=== PATIENT | female | born 1940 | race Caucasian/White ===

== ENCOUNTER → 2017-09-25 | Outpatient (CLI) | payer MEDICARE, OTHER ==
[~2017-09-25] MED LIST: ATOR40TA52 PO; ESCI20TA51 PO; GABA300C10 PO; HYDR-531 PO; ISOS30TA4 PO; LATA0.0015 EACHEYE; METO-169 PO; MULT-688 PO; PANT40TA2 PO; RIVA20TA PO
[2017-09-25 08:33] LABS: Basophils # (auto) 0 uL; Basophils % (auto) 0.3 % (0.0-2.0); Eosinophils # (auto) 0.2 uL; Eosinophils % (auto) 3.2 % (0.0-7.0); Hematocrit 36.9 % (36.0-46.0); Hemoglobin 12.1 g/dL (12.2-16.2); Lymphocytes # (auto) 1.8 uL; Lymphocytes % (auto) 31.9 % (10.0-50.0); Mean Corpuscular Hemoglobin 28.9 pg (28.0-32.0); Mean Corpuscular Hgb Conc. 32.8 g/dL (32.0-36.0); Mean Corpuscular Volume 87.9 fL (80.0-100.0); Monocytes # (auto) 0.6 uL; Monocytes % (auto) 9.9 % (0.0-12.0); Neutrophils # (auto) 3.1 uL; Neutrophils % (auto) 54.7 % (37.0-80.0); Platelet Count (auto) 278 10^3/uL (140-450); Red Cell Distribution Width 14.5 % (11.8-14.3); White Blood Cell 5.7 10^3/uL (4.4-10.8)
[2017-09-25 09:14] LABS: Albumin 3.4 g/dL (3.4-5.0); BUN/Creatinine Ratio 21.4; Bilirubin, Total 0.3 mg/dL (0.2-1.0); Calcium 9.5 mg/dL (8.5-10.1); Total Protein 7.3 g/dL (6.4-8.2)
[2017-09-25 12:47] LABS: Urine Bacteria NONE SEEN /hpf (None Seen); Urine Blood Negative /uL (Negative); Urine Specific Gravity 1.015 (1.001-1.035); Urine WBC 3 /hpf (0 - 5)
== END | disposition home or self-care (01) ==
LOC: LAB 07:08
PROVIDERS: ATTEND Internal Medicine
DX: I10 Essential (primary) hypertension (principal); E78.5 Hyperlipidemia, unspecified; E03.9 Hypothyroidism, unspecified; I48.0 Paroxysmal atrial fibrillation; Z79.899 Other long term (current) drug therapy
CPT/HCPCS: 36415; 80053; 80061; 81001; 82043; 84439; 84443; 85025; 85652

== ENCOUNTER → 2017-09-26 | Outpatient (CLI) | payer MEDICARE, OTHER ==
[~2017-09-26] VITALS: Ht 160 cm; Wt 77.1 kg
[~2017-09-26] MED LIST changes: +ADENOSINE 65 MG in GIVE UN-DILUTED 0 ML IV STA
[2017-09-26 10:56] VITALS: BP 172/83
== END | disposition home or self-care (01) ==
LOC: XY 09:20
PROVIDERS: ATTEND Internal Medicine
DX: I48.0 Paroxysmal atrial fibrillation (principal); E78.5 Hyperlipidemia, unspecified; I10 Essential (primary) hypertension; F32.9 Major depressive disorder, single episode, unspecified; G89.4 Chronic pain syndrome; G62.9 Polyneuropathy, unspecified; Z79.899 Other long term (current) drug therapy
CPT/HCPCS: 93017; J0153

== ENCOUNTER → 2017-10-04 | Outpatient (CLI) | payer MEDICARE, OTHER ==
[~2017-10-04] MED LIST changes: -ADENOSINE 65 MG in GIVE UN-DILUTED 0 ML IV STA
== END | disposition home or self-care (01) ==
LOC: XYW 09:59
PROVIDERS: ATTEND Internal Medicine
DX: I10 Essential (primary) hypertension (principal); E78.5 Hyperlipidemia, unspecified; E03.9 Hypothyroidism, unspecified; Z79.899 Other long term (current) drug therapy
CPT/HCPCS: 93306

== ENCOUNTER → 2017-10-11 | Outpatient (CLI) | payer MEDICARE, OTHER | END | disposition home or self-care (01) | LOC: XY 10:03 | PROVIDERS: ATTEND Internal Medicine | DX: N28.89 Other specified disorders of kidney and ureter (principal); I10 Essential (primary) hypertension; E03.9 Hypothyroidism, unspecified; E78.5 Hyperlipidemia, unspecified; Z79.899 Other long term (current) drug therapy; Z96.652 Presence of left artificial knee joint | CPT/HCPCS: 78306; A9503 ==

== ENCOUNTER → 2017-10-11 | Outpatient (CLI) | payer MEDICARE, OTHER ==
[2017-10-11 09:56] LABS: Calcium 9.3 mg/dL (8.5-10.1); Potassium 4.5 mmol/L (3.5-5.1)
== END | disposition home or self-care (01) ==
LOC: LAB 08:49
PROVIDERS: ATTEND Urology
DX: C64.1 Malignant neoplasm of right kidney, except renal pelvis (principal); I10 Essential (primary) hypertension; E78.5 Hyperlipidemia, unspecified; E03.9 Hypothyroidism, unspecified; Z79.899 Other long term (current) drug therapy
CPT/HCPCS: 36415; 80048

== ENCOUNTER → 2017-10-18 | Outpatient (CLI) | payer MEDICARE, OTHER ==
[2017-10-18 09:37] LABS: Basophils # (auto) 0 uL; Basophils % (auto) 0.7 % (0.0-2.0); Eosinophils # (auto) 0.2 uL; Eosinophils % (auto) 3.1 % (0.0-7.0); Hemoglobin 12.5 g/dL (12.2-16.2); Lymphocytes # (auto) 2.2 uL; Lymphocytes % (auto) 36.3 % (10.0-50.0); Mean Corpuscular Hemoglobin 28.5 pg (28.0-32.0); Mean Corpuscular Hgb Conc. 32.2 g/dL (32.0-36.0); Mean Corpuscular Volume 88.4 fL (80.0-100.0); Monocytes # (auto) 0.6 uL; Monocytes % (auto) 10.4 % (0.0-12.0); Neutrophils % (auto) 49.5 % (37.0-80.0); Platelet Count (auto) 285 10^3/uL (140-450); Red Blood Cells 4.41 10^6/uL (4.0-5.20); Red Cell Distribution Width 15.2 % (11.8-14.3); White Blood Cell 6.1 10^3/uL (4.4-10.8)
[2017-10-18 10:19] LABS: Albumin 3.5 g/dL (3.4-5.0); BUN/Creatinine Ratio 27.1; Bilirubin, Total 0.3 mg/dL (0.2-1.0); Calcium 9.1 mg/dL (8.5-10.1); Potassium 4.6 mmol/L (3.5-5.1); Total Protein 7.2 g/dL (6.4-8.2)
== END | disposition home or self-care (01) ==
LOC: LAB 09:12
PROVIDERS: ATTEND Internal Medicine
DX: I10 Essential (primary) hypertension (principal); R42 Dizziness and giddiness; E78.5 Hyperlipidemia, unspecified; E03.9 Hypothyroidism, unspecified; Z79.899 Other long term (current) drug therapy
CPT/HCPCS: 36415; 80053; 85025

== ENCOUNTER → 2017-12-11 | Outpatient (CLI) | payer MEDICARE, OTHER ==
[~2017-12-11] MED LIST changes: +APIX2.5T PO; +DILT60TA27 PO; +FURO20TA PO
[2017-12-11 16:54] LABS: BUN/Creatinine Ratio 17.9; Calcium 8.7 mg/dL (8.5-10.1); Potassium 4.7 mmol/L (3.5-5.1)
[2017-12-11 16:55] LABS: Basophils # (auto) 0 uL; Basophils % (auto) 0.5 % (0.0-2.0); Eosinophils # (auto) 0.3 uL; Eosinophils % (auto) 4.2 % (0.0-7.0); Hemoglobin 10.2 g/dL (12.2-16.2); Lymphocytes # (auto) 2.2 uL; Lymphocytes % (auto) 34.7 % (10.0-50.0); Mean Corpuscular Hgb Conc. 33.8 g/dL (32.0-36.0); Mean Corpuscular Volume 88.8 fL (80.0-100.0); Monocytes # (auto) 0.6 uL; Monocytes % (auto) 9.6 % (0.0-12.0); Neutrophils # (auto) 3.3 uL; Platelet Count (auto) 331 10^3/uL (140-450); Red Blood Cells 3.38 10^6/uL (4.0-5.20); Red Cell Distribution Width 16.4 % (11.8-14.3); White Blood Cell 6.4 10^3/uL (4.4-10.8)
== END | disposition home or self-care (01) ==
LOC: LAB 15:17
PROVIDERS: ATTEND Internal Medicine
DX: I12.9 Hypertensive chronic kidney disease with stage 1 through stage 4 chronic kidney disease, or unspecified chronic kidney disease (principal); N18.3 Chronic kidney disease, stage 3 (moderate); E78.5 Hyperlipidemia, unspecified; G47.00 Insomnia, unspecified
CPT/HCPCS: 36415; 80048; 84439; 84443; 85025

== ENCOUNTER 2017-12-30 12:27 | Inpatient (IN) | payer MEDICARE, OTHER ==
[~2017-12-30] VITALS: Ht 162.6 cm; Wt 80.0 kg
[~2017-12-30 12:27] MED LIST changes: -APIX2.5T PO; -DILT60TA27 PO; -FURO20TA PO
[2017-12-30] MEDS ORDERED: ALBUTEROL SULF 2.5 MG/0.5ML(0.5%) NEB SOLN HHN ONE (14:00)
[2017-12-30] MEDS ORDERED: IPRATROPIUM BROM 0.5 MG/2.5ML INH SOL HHN ONE (14:00)
[2017-12-30 14:09] LABS: Urine Bacteria FEW /hpf (None Seen); Urine Blood Negative /uL (Negative); Urine Specific Gravity 1.016 (1.001-1.035); Urine WBC 4 /hpf (0 - 5)
[2017-12-30 14:17] LABS: Basophils # (auto) 0 uL; Basophils % (auto) 0.6 % (0.0-2.0); Eosinophils # (auto) 0.2 uL; Hematocrit 30.9 % (36.0-46.0); Hemoglobin 10.2 g/dL (12.2-16.2); Lymphocytes # (auto) 2.7 uL; Lymphocytes % (auto) 34.8 % (10.0-50.0); Mean Corpuscular Hemoglobin 29.8 pg (28.0-32.0); Mean Corpuscular Volume 90.3 fL (80.0-100.0); Monocytes # (auto) 0.7 uL; Neutrophils # (auto) 4.2 uL; Neutrophils % (auto) 52.6 % (37.0-80.0); Nucleated Red Blood Cells % 0.1 %; Platelet Count (auto) 311 10^3/uL (140-450); Red Blood Cells 3.42 10^6/uL (4.0-5.20); Red Cell Distribution Width 16.4 % (11.8-14.3); White Blood Cell 7.9 10^3/uL (4.4-10.8)
[2017-12-30 14:44] LABS: Alanine Aminotransferase 18 U/L (13-56); Albumin 3.3 g/dL (3.4-5.0); Anion Gap 10 (5-15); Aspartate Aminotransferase 13 U/L (15-37); BUN/Creatinine Ratio 19.1; Blood Urea Nitrogen 34 mg/dL (7-18); Calcium 9.2 mg/dL (8.5-10.1); Carbon Dioxide 24 mmol/L (21-32); Chloride 107 mmol/L (98-107); GFR African American 36 mL/min; GFR Non-African American 29 mL/min; Glucose 83 mg/dL (74-106); Magnesium 2.2 mg/dL (1.6-2.6); Potassium 4.4 mmol/L (3.5-5.1); Sodium 141 mmol/L (136-145)
[2017-12-30 14:49] LABS: Alkaline Phosphatase 123 U/L (45-117); Bilirubin, Total 0.4 mg/dL (0.2-1.0)
[2017-12-30] MEDS ORDERED: cefTRIAXone 1GM/10ml IVPUSH 10 ML IV ONE (15:15)
[2017-12-30] MEDS ORDERED: SODIUM CHLORIDE 0.9% 1,000 ML IV ONE (15:45)
[2017-12-30] MEDS ORDERED: MORPHINE SULF INJ 2 MG/ML SYRINGE 1ML IV PRN ×2 (16:15)
[2017-12-30] MEDS ORDERED: TEMAZEPAM 15 MG CAP PO PRN (16:15)
[2017-12-30] MEDS ORDERED: ALBUTEROL SULF 2.5 MG/0.5ML(0.5%) NEB SOLN NEB PRN (16:15)
[2017-12-30] MEDS ORDERED: LORazepam 0.5 MG TAB PO PRN (16:15)
[2017-12-30] MEDS ORDERED: PROMETHAZINE HCL 25 MG/ML 1ML IV PRN (16:15)
[2017-12-30] MEDS ORDERED: methylPREDNISolone SOD SUCC 40 MG/ML VL IV SCH (16:15)
[2017-12-30] MEDS ORDERED: HYDROcodone-ACET 5/325MG TAB PO PRN (16:15)
[2017-12-30] MEDS ORDERED: LACTULOSE 20Gm/30ML SOLN PO PRN (16:15)
[2017-12-30] MEDS ORDERED: NITROGLYCERIN 0.4 MG SL TAB SL PRN (16:15)
[2017-12-30] MEDS: ENOXAPARIN SOD 30 MG/0.3 ML SYRINGE SC SCH (16:39)
[2017-12-30] MEDS: PANTOPRAZOLE 40 MG TAB PO SCH (16:40)
[2017-12-30 17:49] LABS: CRP High Sensitivity 0.79 mg/dL (< 0.3)
[2017-12-30] MEDS: ALBUTEROL SULF 2.5 MG/0.5ML(0.5%) NEB SOLN NEB SCH (18:43)
[2017-12-30] MEDS: IPRATROPIUM BROM 0.5 MG/2.5ML INH SOL NEB SCH (18:43)
[2017-12-30] MEDS: SODIUM CHLORIDE 0.9% 1,000 ML IV SCH (19:15)
[2017-12-30 19:32] VITALS: BP 129/64
[2017-12-30 22:00] VITALS: BP 133/68
[2017-12-31] VITALS (7 sets, daily range): BP systolic 133–153; BP diastolic 68–103
[2017-12-31] MEDS: ALBUTEROL SULF 2.5 MG/0.5ML(0.5%) NEB SOLN NEB SCH ×5 (00:16→23:50)
[2017-12-31] MEDS: IPRATROPIUM BROM 0.5 MG/2.5ML INH SOL NEB SCH ×5 (00:16→23:50)
[2017-12-31] MEDS ORDERED: DILT60TA27 PO (00:47)
[2017-12-31] MEDS ORDERED: APIX2.5T PO (00:47)
[2017-12-31] MEDS ORDERED: FURO20TA PO (00:47)
[2017-12-31] MEDS: SODIUM CHLORIDE 0.9% 1,000 ML IV SCH (02:55)
[2017-12-31 07:01] LABS: Cholesterol 168 mg/dL (< 200); HDL Cholesterol 76 mg/dL (40-59); LDL Cholesterol 90 mg/dL (< 100); Triglycerides 48 mg/dL (< 150)
[2017-12-31] MEDS: PANTOPRAZOLE 40 MG TAB PO SCH (09:48)
[2017-12-31] MEDS: ENOXAPARIN SOD 30 MG/0.3 ML SYRINGE SC SCH (09:49)
[2017-12-31] MEDS: cefTRIAXone 1GM/10ml IVPUSH 10 ML IV SCH (09:49)
[2017-12-31] MEDS ORDERED: ENSURE CLEAR Mixed Berry 8oz Carton PO SCH (18:00)
[2017-12-31] MEDS: Ensure Enlive Strawberry 8oz Bottle PO SCH (18:02)
[2017-12-31] MEDS: ACETAMINOPHEN 500 MG TAB PO PRN (18:03)
[2017-12-31] MEDS ORDERED: DILTIAZEM HCL 120MG ER CAP PO ONE (18:15)
[2017-12-31] MEDS ORDERED: GABAPENTIN 300 MG CAP PO ONE (18:45)
[2017-12-31] MEDS ORDERED: FUROSEMIDE 20 MG TAB PO ONE (18:45)
[2017-12-31] MEDS: APIXABAN 2.5 MG TAB PO SCH (22:02)
[2017-12-31] MEDS: ATORVASTATIN 20 MG TAB PO SCH (22:02)
[2018-01-01 06:00] VITALS: BP 148/76
[2018-01-01] MEDS: IPRATROPIUM BROM 0.5 MG/2.5ML INH SOL NEB SCH ×3 (07:30→19:17)
[2018-01-01] MEDS: ALBUTEROL SULF 2.5 MG/0.5ML(0.5%) NEB SOLN NEB SCH ×3 (07:30→19:17)
[2018-01-01] MEDS: Ensure Enlive Strawberry 8oz Bottle PO SCH ×3 (08:00→18:08)
[2018-01-01 08:30] VITALS: BP 154/84
[2018-01-01 09:00] VITALS: BP 154/84
[2018-01-01 09:04] LABS: BUN/Creatinine Ratio 20.8; Calcium 9.6 mg/dL (8.5-10.1)
[2018-01-01] MEDS: PANTOPRAZOLE 40 MG TAB PO SCH (10:00)
[2018-01-01] MEDS: DILTIAZEM HCL 120MG ER CAP PO SCH (10:14)
[2018-01-01] MEDS: cefTRIAXone 1GM/10ml IVPUSH 10 ML IV SCH (10:14)
[2018-01-01] MEDS: APIXABAN 2.5 MG TAB PO SCH ×2 (10:14→22:03)
[2018-01-01] MEDS: FUROSEMIDE 20 MG TAB PO SCH (10:15)
[2018-01-01] MEDS: ACETAMINOPHEN 500 MG TAB PO PRN (16:25)
[2018-01-01 17:05] VITALS: BP 135/71
[2018-01-01 20:00] VITALS: BP 141/76
[2018-01-01 21:40] VITALS: BP 141/76
[2018-01-01] MEDS: ATORVASTATIN 20 MG TAB PO SCH (22:04)
[2018-01-02] VITALS (7 sets, daily range): BP systolic 129–158; BP diastolic 67–86
[2018-01-02] MEDS: IPRATROPIUM BROM 0.5 MG/2.5ML INH SOL NEB SCH ×5 (00:27→20:12)
[2018-01-02] MEDS: ALBUTEROL SULF 2.5 MG/0.5ML(0.5%) NEB SOLN NEB SCH ×5 (00:28→20:12)
[2018-01-02] MEDS: Ensure Enlive Strawberry 8oz Bottle PO SCH ×3 (08:00→18:11)
[2018-01-02] MEDS: cefTRIAXone 1GM/10ml IVPUSH 10 ML IV SCH (09:00)
[2018-01-02 09:40] LABS: Basophils # (auto) 0 uL; Basophils % (auto) 0.5 % (0.0-2.0); Eosinophils # (auto) 0.2 uL; Eosinophils % (auto) 2.9 % (0.0-7.0); Hematocrit 35.7 % (36.0-46.0); Hemoglobin 11.7 g/dL (12.2-16.2); Lymphocytes # (auto) 1.8 uL; Lymphocytes % (auto) 24.9 % (10.0-50.0); Mean Corpuscular Hemoglobin 29.3 pg (28.0-32.0); Mean Corpuscular Hgb Conc. 32.9 g/dL (32.0-36.0); Mean Corpuscular Volume 88.9 fL (80.0-100.0); Monocytes # (auto) 0.5 uL; Monocytes % (auto) 7.7 % (0.0-12.0); Neutrophils # (auto) 4.6 uL; Platelet Count (auto) 299 10^3/uL (140-450); Red Blood Cells 4.01 10^6/uL (4.0-5.20); White Blood Cell 7.1 10^3/uL (4.4-10.8)
[2018-01-02 09:58] LABS: BUN/Creatinine Ratio 24.2; Calcium 9.7 mg/dL (8.5-10.1); Potassium 4.5 mmol/L (3.5-5.1)
[2018-01-02] MEDS: APIXABAN 2.5 MG TAB PO SCH ×2 (10:00→21:13)
[2018-01-02] MEDS: FUROSEMIDE 20 MG TAB PO SCH (10:00)
[2018-01-02] MEDS: DILTIAZEM HCL 120MG ER CAP PO SCH (10:00)
[2018-01-02] MEDS: PANTOPRAZOLE 40 MG TAB PO SCH (10:00)
[2018-01-02] MEDS: SODIUM CHLORIDE 0.9% 1,000 ML IV SCH ×2 (12:30→21:13)
[2018-01-02] MEDS: ATORVASTATIN 20 MG TAB PO SCH (21:13)
[2018-01-02] MEDS: ACETAMINOPHEN 500 MG TAB PO PRN (23:13)
[2018-01-03 04:43] VITALS: BP 147/89
[2018-01-03] MEDS: IPRATROPIUM BROM 0.5 MG/2.5ML INH SOL NEB SCH ×2 (06:34→11:31)
[2018-01-03] MEDS: ALBUTEROL SULF 2.5 MG/0.5ML(0.5%) NEB SOLN NEB SCH ×2 (06:34→11:31)
[2018-01-03] MEDS: Ensure Enlive Strawberry 8oz Bottle PO SCH ×2 (08:00→12:00)
[2018-01-03] MEDS: SODIUM CHLORIDE 0.9% 1,000 ML IV SCH (08:30)
[2018-01-03 09:00] VITALS: BP 151/99
[2018-01-03] MEDS: cefTRIAXone 1GM/10ml IVPUSH 10 ML IV SCH (09:55)
[2018-01-03] MEDS: DILTIAZEM HCL 120MG ER CAP PO SCH (09:56)
[2018-01-03] MEDS: APIXABAN 2.5 MG TAB PO SCH (09:56)
[2018-01-03] MEDS: FUROSEMIDE 20 MG TAB PO SCH (09:56)
[2018-01-03] MEDS: PANTOPRAZOLE 40 MG TAB PO SCH (09:57)
== END 2018-01-03 14:20 | disposition home or self-care (01) | DRG 190 ==
LOC: ER 12:27 → TELE 12:28 → TELE-WESTW 20:10
PROVIDERS: ADMIT Internal Medicine; ATTEND Family Medicine
DX: J44.0 Chronic obstructive pulmonary disease with (acute) lower respiratory infection (principal); J18.9 Pneumonia, unspecified organism; I13.0 Hypertensive heart and chronic kidney disease with heart failure and stage 1 through stage 4 chronic kidney disease, or unspecified chronic kidney disease; S22.32XA Fracture of one rib, left side, initial encounter for closed fracture; N39.0 Urinary tract infection, site not specified; I50.42 Chronic combined systolic (congestive) and diastolic (congestive) heart failure; J44.1 Chronic obstructive pulmonary disease with (acute) exacerbation; N18.3 Chronic kidney disease, stage 3 (moderate); J20.9 Acute bronchitis, unspecified; I25.10 Atherosclerotic heart disease of native coronary artery without angina pectoris; E78.5 Hyperlipidemia, unspecified; K80.20 Calculus of gallbladder without cholecystitis without obstruction; D64.9 Anemia, unspecified; E66.3 Overweight; E78.00 Pure hypercholesterolemia, unspecified; F41.9 Anxiety disorder, unspecified; I48.2 Chronic atrial fibrillation; W18.39XA Other fall on same level, initial encounter; B95.62 Methicillin resistant Staphylococcus aureus infection as the cause of diseases classified elsewhere; I25.2 Old myocardial infarction; Z82.49 Family history of ischemic heart disease and other diseases of the circulatory system; Z85.528 Personal history of other malignant neoplasm of kidney; Z90.5 Acquired absence of kidney; Z91.81 History of falling; Z88.5 Allergy status to narcotic agent; Z80.9 Family history of malignant neoplasm, unspecified; Z88.8 Allergy status to other drugs, medicaments and biological substances; Z91.010 Allergy to peanuts; Z91.018 Allergy to other foods; Z91.013 Allergy to seafood; Z68.30 Body mass index [BMI] 30.0-30.9, adult; Y93.89 Activity, other specified; Y92.098 Other place in other non-institutional residence as the place of occurrence of the external cause; Y99.8 Other external cause status
CPT/HCPCS: 36415; 70450; 71045; 71250; 74176; 78226; 80048; 80053; 80061; 81001; 82150; 82550; 83605; 83690; 83735; 83880; 84443; 84484; 85025; 85379; 85652; 86141; 87040; 87070; 87081; 87086; 87205; 93005; 93970; 94640; 94761; 96361; 96374; 96375; J0696

== ENCOUNTER → 2018-01-25 | Outpatient (CLI) | payer MEDICARE, OTHER ==
[~2018-01-25] MED LIST changes: +APIX2.5T PO; +DILT60TA27 PO; +FURO20TA PO; -HYDR-531 PO; -METO-169 PO; -RIVA20TA PO
== END | disposition home or self-care (01) ==
LOC: LAB 16:03
PROVIDERS: ATTEND Internal Medicine
DX: Z20.818 Contact with and (suspected) exposure to other bacterial communicable diseases (principal); I25.10 Atherosclerotic heart disease of native coronary artery without angina pectoris; J44.9 Chronic obstructive pulmonary disease, unspecified
CPT/HCPCS: 87081

== ENCOUNTER → 2018-02-27 | Outpatient (CLI) | payer MEDICARE, OTHER ==
[2018-02-27 09:04] LABS: Basophils # (auto) 0 uL; Basophils % (auto) 0.4 % (0.0-2.0); Eosinophils # (auto) 0.2 uL; Eosinophils % (auto) 4.4 % (0.0-7.0); Hematocrit 35.7 % (36.0-46.0); Hemoglobin 11.7 g/dL (12.2-16.2); Lymphocytes % (auto) 34.4 % (10.0-50.0); Mean Corpuscular Hemoglobin 29.8 pg (28.0-32.0); Mean Corpuscular Hgb Conc. 32.7 g/dL (32.0-36.0); Mean Corpuscular Volume 91.4 fL (80.0-100.0); Monocytes # (auto) 0.4 uL; Monocytes % (auto) 7.8 % (0.0-12.0); Nucleated Red Blood Cells % 0.1 %; Platelet Count (auto) 277 10^3/uL (140-450); Red Blood Cells 3.91 10^6/uL (4.0-5.20); Red Cell Distribution Width 13.7 % (11.8-14.3); White Blood Cell 5.7 10^3/uL (4.4-10.8)
[2018-02-27 09:25] LABS: Calcium 9.2 mg/dL (8.5-10.1); Potassium 4.8 mmol/L (3.5-5.1); Protein, Urine 20.6 mg/dL (0.0-11.9)
[2018-02-27 09:29] LABS: Phosphorus 4.1 mg/dL (2.5-4.90)
== END | disposition home or self-care (01) ==
LOC: LAB 08:40
PROVIDERS: ATTEND Student in an Organized Health Care Education/Training Program
DX: I12.9 Hypertensive chronic kidney disease with stage 1 through stage 4 chronic kidney disease, or unspecified chronic kidney disease (principal); N18.3 Chronic kidney disease, stage 3 (moderate); R80.9 Proteinuria, unspecified; E83.39 Other disorders of phosphorus metabolism
CPT/HCPCS: 36415; 80048; 80061; 82570; 84100; 84156; 85025

== ENCOUNTER → 2018-06-01 | Outpatient (CLI) | payer MEDICARE, OTHER ==
[2018-06-01 11:26] LABS: Basophils # (auto) 0 uL; Basophils % (auto) 0.3 % (0.0-2.0); Eosinophils # (auto) 0.2 uL; Eosinophils % (auto) 1.9 % (0.0-7.0); Hematocrit 37.6 % (36.0-46.0); Hemoglobin 12.4 g/dL (12.2-16.2); Lymphocytes # (auto) 2.8 uL; Lymphocytes % (auto) 34.6 % (10.0-50.0); Mean Corpuscular Hemoglobin 29.1 pg (28.0-32.0); Mean Corpuscular Volume 88.3 fL (80.0-100.0); Monocytes # (auto) 0.6 uL; Monocytes % (auto) 7.9 % (0.0-12.0); Neutrophils # (auto) 4.4 uL; Neutrophils % (auto) 55.3 % (37.0-80.0); Nucleated Red Blood Cells % 0.1 %; Platelet Count (auto) 290 10^3/uL (140-450); Red Blood Cells 4.26 10^6/uL (4.0-5.20); Red Cell Distribution Width 14.5 % (11.8-14.3)
[2018-06-01 11:27] LABS: Urine Blood Negative /uL (Negative); Urine Specific Gravity 1.021 (1.001-1.035)
[2018-06-01 11:45] LABS: Calcium 9.1 mg/dL (8.5-10.1); Potassium 5.3 mmol/L (3.5-5.1)
[2018-06-01 11:51] LABS: BUN/Creatinine Ratio 20.4
== END | disposition home or self-care (01) ==
LOC: LAB 11:02
PROVIDERS: ATTEND Student in an Organized Health Care Education/Training Program
DX: I12.9 Hypertensive chronic kidney disease with stage 1 through stage 4 chronic kidney disease, or unspecified chronic kidney disease (principal); N18.3 Chronic kidney disease, stage 3 (moderate); D63.1 Anemia in chronic kidney disease; R80.9 Proteinuria, unspecified
CPT/HCPCS: 36415; 80048; 80061; 81003; 85025

== ENCOUNTER → 2018-07-02 | Outpatient (CLI) | payer MEDICARE, OTHER ==
[2018-07-02 14:08] LABS: Basophils # (auto) 0 uL; Basophils % (auto) 0.4 % (0.0-2.0); Eosinophils # (auto) 0.2 uL; Hematocrit 35.4 % (36.0-46.0); Hemoglobin 11.6 g/dL (12.2-16.2); Lymphocytes # (auto) 1.9 uL; Lymphocytes % (auto) 25.6 % (10.0-50.0); Mean Corpuscular Hemoglobin 29.3 pg (28.0-32.0); Mean Corpuscular Hgb Conc. 32.7 g/dL (32.0-36.0); Mean Corpuscular Volume 89.5 fL (80.0-100.0); Monocytes # (auto) 0.7 uL; Monocytes % (auto) 9.4 % (0.0-12.0); Neutrophils # (auto) 4.7 uL; Neutrophils % (auto) 62.6 % (37.0-80.0); Platelet Count (auto) 295 10^3/uL (140-450); Red Blood Cells 3.96 10^6/uL (4.0-5.20); Red Cell Distribution Width 15.2 % (11.8-14.3); White Blood Cell 7.5 10^3/uL (4.4-10.8)
[2018-07-02 14:15] LABS: Albumin 3.5 g/dL (3.4-5.0); Calcium 8.6 mg/dL (8.5-10.1); Potassium 4.7 mmol/L (3.5-5.1)
[2018-07-02 14:19] LABS: BUN/Creatinine Ratio 17.5; Bilirubin, Total 0.4 mg/dL (0.2-1.0); Total Protein 7.1 g/dL (6.4-8.2)
[2018-07-02 14:23] LABS: Free T4 (Free Thyroxine) 1.17 ng/dL (0.89-1.76)
== END | disposition home or self-care (01) ==
LOC: LAB 13:32
PROVIDERS: ATTEND Internal Medicine
DX: E03.9 Hypothyroidism, unspecified (principal); I12.9 Hypertensive chronic kidney disease with stage 1 through stage 4 chronic kidney disease, or unspecified chronic kidney disease; N18.3 Chronic kidney disease, stage 3 (moderate); Z79.899 Other long term (current) drug therapy; I48.91 Unspecified atrial fibrillation
CPT/HCPCS: 36415; 80053; 82607; 83540; 84439; 84443; 85025

== ENCOUNTER 2018-09-07 11:20 | Emergency (ER) | payer MEDICARE, OTHER ==
[~2018-09-07] VITALS: Ht 165.1 cm; Wt 68.0 kg
[2018-09-07 13:00] LABS: Basophils # (auto) 0 uL; Basophils % (auto) 0.6 % (0.0-2.0); Eosinophils # (auto) 0.1 uL; Eosinophils % (auto) 2.3 % (0.0-7.0); Hematocrit 34.8 % (36.0-46.0); Hemoglobin 11.6 g/dL (12.2-16.2); Lymphocytes # (auto) 1.6 uL; Lymphocytes % (auto) 28.2 % (10.0-50.0); Mean Corpuscular Hemoglobin 29.7 pg (28.0-32.0); Mean Corpuscular Hgb Conc. 33.2 g/dL (32.0-36.0); Mean Corpuscular Volume 89.2 fL (80.0-100.0); Monocytes # (auto) 0.5 uL; Monocytes % (auto) 8.9 % (0.0-12.0); Neutrophils # (auto) 3.4 uL; Platelet Count (auto) 254 10^3/uL (140-450); White Blood Cell 5.7 10^3/uL (4.4-10.8)
[2018-09-07 13:14] LABS: INR 0.98 (0.9-1.15); Partial Thromboplastin Time 29.5 sec (23.78-33.04); Prothrombin Time 10.5 sec (9.27-12.13)
[2018-09-07 13:17] LABS: Albumin 3.4 g/dL (3.4-5.0); Anion Gap 9 (5-15); Blood Urea Nitrogen 43 mg/dL (7-18); Calcium 8.8 mg/dL (8.5-10.1); Carbon Dioxide 23 mmol/L (21-32); Chloride 107 mmol/L (98-107); Glucose 115 mg/dL (74-106); Magnesium 2.5 mg/dL (1.6-2.6); Potassium 4.6 mmol/L (3.5-5.1); Sodium 139 mmol/L (136-145)
[2018-09-07 13:23] LABS: Alanine Aminotransferase 22 U/L (13-56); Alkaline Phosphatase 147 U/L (45-117); Aspartate Aminotransferase 14 U/L (15-37); BUN/Creatinine Ratio 24.6; Bilirubin, Total 0.4 mg/dL (0.2-1.0); GFR African American 36 mL/min; GFR Non-African American 30 mL/min; Total Protein 6.5 g/dL (6.4-8.2)
[2018-09-07 13:49] LABS: Urine Bacteria NONE SEEN /hpf (None Seen); Urine Blood Negative /uL (Negative); Urine Specific Gravity 1.013 (1.001-1.035); Urine WBC 16 /hpf (0 - 5)
[2018-09-07 13:54] VITALS: BP 105/51
== END 2018-09-07 16:19 | disposition home or self-care (01) ==
LOC: EDBD 11:20 → ER 11:20
DX: E86.0 Dehydration (principal); T78.40XA Allergy, unspecified, initial encounter; J44.9 Chronic obstructive pulmonary disease, unspecified; E78.5 Hyperlipidemia, unspecified; I10 Essential (primary) hypertension; I25.2 Old myocardial infarction; I48.91 Unspecified atrial fibrillation; Z86.73 Personal history of transient ischemic attack (TIA), and cerebral infarction without residual deficits; Z79.899 Other long term (current) drug therapy; Z88.2 Allergy status to sulfonamides; Z88.6 Allergy status to analgesic agent; Z91.010 Allergy to peanuts; X58.XXXA Exposure to other specified factors, initial encounter
CPT/HCPCS: 36415; 70450; 71045; 80053; 81001; 83735; 83880; 84484; 85025; 85610; 85730; 93005

== ENCOUNTER → 2018-12-31 | Outpatient (CLI) | payer MEDICARE, OTHER ==
[~2018-12-31] MED LIST changes: +FURO1TAB33 PO; -FURO20TA PO
[2018-12-31 10:50] LABS: Basophils # (auto) 0 uL; Basophils % (auto) 0.5 % (0.0-2.0); Eosinophils # (auto) 0.2 uL; Eosinophils % (auto) 3.3 % (0.0-7.0); Hematocrit 35.8 % (36.0-46.0); Hemoglobin 11.6 g/dL (12.2-16.2); Lymphocytes % (auto) 31.4 % (10.0-50.0); Mean Corpuscular Hemoglobin 29.4 pg (28.0-32.0); Mean Corpuscular Hgb Conc. 32.4 g/dL (32.0-36.0); Mean Corpuscular Volume 90.5 fL (80.0-100.0); Monocytes # (auto) 0.5 uL; Monocytes % (auto) 7.8 % (0.0-12.0); Neutrophils # (auto) 3.7 uL; Nucleated Red Blood Cells % 0.1 %; Platelet Count (auto) 290 10^3/uL (140-450); Red Blood Cells 3.95 10^6/uL (4.0-5.20); Red Cell Distribution Width 14.1 % (11.8-14.3); White Blood Cell 6.4 10^3/uL (4.4-10.8)
[2018-12-31 11:02] LABS: Urine Blood Negative /uL (Negative); Urine Specific Gravity 1.018 (1.001-1.035)
[2018-12-31 11:07] LABS: Potassium 4.8 mmol/L (3.5-5.1)
== END | disposition home or self-care (01) ==
LOC: LAB 10:03
PROVIDERS: ATTEND Student in an Organized Health Care Education/Training Program
DX: N39.0 Urinary tract infection, site not specified (principal); I12.9 Hypertensive chronic kidney disease with stage 1 through stage 4 chronic kidney disease, or unspecified chronic kidney disease; N18.3 Chronic kidney disease, stage 3 (moderate); D63.1 Anemia in chronic kidney disease
CPT/HCPCS: 36415; 80048; 81003; 85025

== ENCOUNTER → 2019-07-04 | Outpatient (CLI) | payer MEDICARE, OTHER ==
[2019-07-04 16:05] LABS: Basophils # (auto) 0 uL; Basophils % (auto) 0.4 % (0.0-2.0); Eosinophils # (auto) 0.3 uL; Eosinophils % (auto) 3.6 % (0.0-7.0); Hematocrit 35.3 % (36.0-46.0); Hemoglobin 11.4 g/dL (12.2-16.2); Lymphocytes # (auto) 2.9 uL; Lymphocytes % (auto) 37.3 % (10.0-50.0); Mean Corpuscular Hemoglobin 28.6 pg (28.0-32.0); Mean Corpuscular Hgb Conc. 32.1 g/dL (32.0-36.0); Mean Corpuscular Volume 89.1 fL (80.0-100.0); Monocytes # (auto) 0.7 uL; Monocytes % (auto) 8.7 % (0.0-12.0); Neutrophils # (auto) 3.8 uL; Nucleated Red Blood Cells % 0.1 %; Platelet Count (auto) 275 10^3/uL (140-450); Red Blood Cells 3.97 10^6/uL (4.0-5.20); Red Cell Distribution Width 15.4 % (11.8-14.3); White Blood Cell 7.7 10^3/uL (4.4-10.8)
[2019-07-04 16:19] LABS: Urine Bacteria NONE SEEN /hpf (None Seen); Urine Blood Negative /uL (Negative); Urine Specific Gravity 1.016 (1.001-1.035); Urine WBC 4 /hpf (0 - 5)
[2019-07-04 16:22] LABS: BUN/Creatinine Ratio 22.5; Calcium 9.2 mg/dL (8.5-10.1); Potassium 4.4 mmol/L (3.5-5.1)
[2019-07-04 16:35] LABS: Protein, Urine 29.8 mg/dL (0.0-11.9)
== END | disposition home or self-care (01) ==
LOC: LAB 15:22
PROVIDERS: ATTEND Student in an Organized Health Care Education/Training Program
DX: R80.9 Proteinuria, unspecified (principal)
CPT/HCPCS: 36415; 80048; 81001; 82570; 84156; 85025

== ENCOUNTER → 2019-11-07 | Outpatient (CLI) | payer MEDICARE, OTHER ==
[~2019-11-07] MED LIST changes: -LATA0.0015 EACHEYE; +LATA0.0019 EACHEYE
[2019-11-07 10:58] LABS: Basophils # (auto) 0 10 ^3/uL (0-0.2); Basophils % (auto) 0.4 % (0.0-2.0); Eosinophils # (auto) 0.1 10 ^3/uL (0-0.8); Eosinophils % (auto) 2.3 % (0.0-7.0); Lymphocytes # (auto) 1.7 10 ^3/uL (0.4-5.4); Lymphocytes % (auto) 29.6 % (10.0-50.0); Mean Corpuscular Hemoglobin 29.3 pg (28.0-32.0); Mean Corpuscular Hgb Conc. 32.5 g/dL (32.0-36.0); Mean Corpuscular Volume 90.1 fL (80.0-100.0); Monocytes # (auto) 0.4 10 ^3/uL (0-1.3); Monocytes % (auto) 7.9 % (0.0-12.0); Neutrophils # (auto) 3.4 10 ^3/uL (1.6-8.6); Neutrophils % (auto) 59.8 % (37.0-80.0); Platelet Count (auto) 270 10^3/uL (140-450); Red Blood Cells 4.44 10^6/uL (4.0-5.20); Red Cell Distribution Width 14.4 % (11.8-14.3); White Blood Cell 5.6 10^3/uL (4.4-10.8)
[2019-11-07 11:21] LABS: Potassium 4.7 mmol/L (3.5-5.1)
[2019-11-07 11:32] LABS: Albumin 3.8 g/dL (3.4-5.0); BUN/Creatinine Ratio 25.2; Bilirubin, Total 0.4 mg/dL (0.2-1.0); Calcium 10.1 mg/dL (8.5-10.1); Total Protein 7.2 g/dL (6.4-8.2); Uric Acid 5.8 mg/dL (2.6-6.0)
== END | disposition home or self-care (01) ==
LOC: LAB 10:12
PROVIDERS: ATTEND Internal Medicine
DX: I12.9 Hypertensive chronic kidney disease with stage 1 through stage 4 chronic kidney disease, or unspecified chronic kidney disease (principal); N18.3 Chronic kidney disease, stage 3 (moderate)
CPT/HCPCS: 36415; 80053; 80061; 84439; 84443; 84550; 85025

== ENCOUNTER → 2020-01-08 | Outpatient (CLI) | payer MEDICARE, OTHER ==
[2020-01-08 13:44] LABS: Basophils # (auto) 0 10 ^3/uL (0-0.2); Basophils % (auto) 0.3 % (0.0-2.0); Eosinophils # (auto) 0.1 10 ^3/uL (0-0.8); Eosinophils % (auto) 2.2 % (0.0-7.0); Hematocrit 36.8 % (36.0-46.0); Hemoglobin 11.9 g/dL (12.2-16.2); Lymphocytes # (auto) 2.1 10 ^3/uL (0.4-5.4); Mean Corpuscular Hemoglobin 29.3 pg (28.0-32.0); Mean Corpuscular Hgb Conc. 32.5 g/dL (32.0-36.0); Mean Corpuscular Volume 90.3 fL (80.0-100.0); Monocytes # (auto) 0.7 10 ^3/uL (0-1.3); Monocytes % (auto) 9.8 % (0.0-12.0); Neutrophils # (auto) 3.7 10 ^3/uL (1.6-8.6); Neutrophils % (auto) 55.7 % (37.0-80.0); Nucleated Red Blood Cells % 0.1 %; Platelet Count (auto) 270 10^3/uL (140-450); Red Blood Cells 4.08 10^6/uL (4.0-5.20); White Blood Cell 6.7 10^3/uL (4.4-10.8)
[2020-01-08 13:51] LABS: Urine Bacteria NONE SEEN /hpf (None Seen); Urine Blood Negative /uL (Negative); Urine Mucus FEW (None Seen); Urine Specific Gravity 1.018 (1.001-1.035); Urine WBC 3 /hpf (0 - 5)
[2020-01-08 14:09] LABS: Albumin 3.4 g/dL (3.4-5.0); Calcium 9.4 mg/dL (8.5-10.1); Potassium 5.2 mmol/L (3.5-5.1)
[2020-01-08 14:10] LABS: Protein, Urine 29.9 mg/dL (0.0-11.9)
[2020-01-08 14:12] LABS: BUN/Creatinine Ratio 20.4; Bilirubin, Total 0.4 mg/dL (0.2-1.0); Total Protein 6.4 g/dL (6.4-8.2)
== END | disposition home or self-care (01) ==
LOC: LAB 13:17
PROVIDERS: ATTEND Student in an Organized Health Care Education/Training Program
DX: N18.3 Chronic kidney disease, stage 3 (moderate) (principal); D63.1 Anemia in chronic kidney disease; E21.3 Hyperparathyroidism, unspecified; R80.9 Proteinuria, unspecified
CPT/HCPCS: 36415; 80053; 81001; 82570; 83970; 84156; 85025

== ENCOUNTER → 2020-03-19 | Day surgery (SDC) | payer MEDICARE, OTHER ==
[2020-03-16 17:14] LABS: Basophils # (auto) 0 10 ^3/uL (0-0.2); Basophils % (auto) 0.5 % (0.0-2.0); Eosinophils # (auto) 0.1 10 ^3/uL (0-0.8); Eosinophils % (auto) 1.8 % (0.0-7.0); Hematocrit 37.9 % (36.0-46.0); Hemoglobin 12.5 g/dL (12.2-16.2); Lymphocytes # (auto) 2.5 10 ^3/uL (0.4-5.4); Lymphocytes % (auto) 33.9 % (10.0-50.0); Mean Corpuscular Hemoglobin 30.1 pg (28.0-32.0); Mean Corpuscular Hgb Conc. 32.9 g/dL (32.0-36.0); Mean Corpuscular Volume 91.6 fL (80.0-100.0); Monocytes # (auto) 0.5 10 ^3/uL (0-1.3); Monocytes % (auto) 7.2 % (0.0-12.0); Neutrophils # (auto) 4.1 10 ^3/uL (1.6-8.6); Neutrophils % (auto) 56.6 % (37.0-80.0); Platelet Count (auto) 279 10^3/uL (140-450); Red Blood Cells 4.14 10^6/uL (4.0-5.20); Red Cell Distribution Width 14.2 % (11.8-14.3); White Blood Cell 7.2 10^3/uL (4.4-10.8)
[2020-03-16 17:26] LABS: INR 0.97 (0.9-1.15); Partial Thromboplastin Time 26.6 sec (23.0-31.2)
[2020-03-16 18:00] LABS: BUN/Creatinine Ratio 21.5; Calcium 9.8 mg/dL (8.5-10.1); Potassium 4.4 mmol/L (3.5-5.1)
[~2020-03-19] VITALS: Ht 162.6 cm; Wt 69.9 kg
[~2020-03-19] MED LIST changes: +ALBUTEROL SULF 2.5 MG/0.5ML(0.5%) NEB SOLN NEB ONE; +ALBUTEROL SULF 2.5 MG/0.5ML(0.5%) NEB SOLN ONE; +ALPR0.5T7 PO; +EPINEPHrine HCL 1 MG/1 ML AMP ONE; -FURO1TAB33 PO; +GLYCOPYRROLATE 0.2 MG/ML 1ML VIAL ONE; +HYDROmorphone HCL 2 MG/ML VL IV PRN; -LATA0.0019 EACHEYE; +LIDOCAINE 1% (LOCAL ANESTH.) PF 5ml SDV ONE; +LIDOCAINE 2%HCL (LOCAL ANESTH.) INJ 20ML MDV ONE; +LIDOCAINE HCL 2% TOP JELLY 5ML TOP ONE; +METOCLOPRAMIDE HCL 5MG/ml INJ 2ml VIAL ONE; +MIDAZOLAM HCL 1MG/1ML-2 ML VIAL ONE; -MULT-688 PO; +NALOXONE HCL 0.4 MG/ML VIAL IV PRN; +ONDANSETRON HCL 4 MG/2 ML VIAL IV PRN; -PANT40TA2 PO; +PROPOFOL 10 MG/ML 20 ML IV ONE; +SODIUM CHLORIDE LOCK 0 ML ONE
--- NOTE | 2020-03-19 15:48 | NUR ---
Respiratory note: PLACED PT ON 2L N/C.
[2020-03-19 18:30] VITALS: BP 101/68
== END | disposition home or self-care (01) ==
LOC: EDBD 12:54 → GI 12:54
PROVIDERS: ATTEND Internal Medicine Pulmonary Disease
DX: J98.8 Other specified respiratory disorders (principal); I48.91 Unspecified atrial fibrillation; J44.9 Chronic obstructive pulmonary disease, unspecified; E66.9 Obesity, unspecified; Z86.73 Personal history of transient ischemic attack (TIA), and cerebral infarction without residual deficits; N18.9 Chronic kidney disease, unspecified; G89.29 Other chronic pain; Z88.1 Allergy status to other antibiotic agents; F41.9 Anxiety disorder, unspecified; Z88.0 Allergy status to penicillin; Z91.013 Allergy to seafood; Z88.5 Allergy status to narcotic agent; Z91.018 Allergy to other foods; Z90.89 Acquired absence of other organs; Z85.528 Personal history of other malignant neoplasm of kidney; Z20.828 Contact with and (suspected) exposure to other viral communicable diseases; Z98.890 Other specified postprocedural states; E66.01 Morbid (severe) obesity due to excess calories; Z88.8 Allergy status to other drugs, medicaments and biological substances; Z90.710 Acquired absence of both cervix and uterus; Z90.5 Acquired absence of kidney; F32.9 Major depressive disorder, single episode, unspecified
CPT/HCPCS: 31622; 36415; 80048; 85025; 85610; 85730; 87070; 87205; 88104; 88305; 94640; J2250; J2704; J2765; U0003; J0171

== ENCOUNTER → 2020-06-05 | Outpatient (CLI) | payer MEDICARE, OTHER ==
[~2020-06-05] MED LIST changes: -ALBUTEROL SULF 2.5 MG/0.5ML(0.5%) NEB SOLN NEB ONE; -ALBUTEROL SULF 2.5 MG/0.5ML(0.5%) NEB SOLN ONE; +DILT60TA PO; -DILT60TA27 PO; -EPINEPHrine HCL 1 MG/1 ML AMP ONE; +ESCI-34 PO; -ESCI20TA51 PO; -GLYCOPYRROLATE 0.2 MG/ML 1ML VIAL ONE; -HYDROmorphone HCL 2 MG/ML VL IV PRN; -LIDOCAINE 1% (LOCAL ANESTH.) PF 5ml SDV ONE; -LIDOCAINE 2%HCL (LOCAL ANESTH.) INJ 20ML MDV ONE; -LIDOCAINE HCL 2% TOP JELLY 5ML TOP ONE; -METOCLOPRAMIDE HCL 5MG/ml INJ 2ml VIAL ONE; -MIDAZOLAM HCL 1MG/1ML-2 ML VIAL ONE; -NALOXONE HCL 0.4 MG/ML VIAL IV PRN; -ONDANSETRON HCL 4 MG/2 ML VIAL IV PRN; -PROPOFOL 10 MG/ML 20 ML IV ONE; -SODIUM CHLORIDE LOCK 0 ML ONE
[2020-06-05 12:23] LABS: Basophils # (auto) 0 10 ^3/uL (0-0.2); Basophils % (auto) 0.5 % (0.0-2.0); Eosinophils # (auto) 0.1 10 ^3/uL (0-0.8); Eosinophils % (auto) 2.2 % (0.0-7.0); Hematocrit 37.1 % (36.0-46.0); Hemoglobin 12.5 g/dL (12.2-16.2); Mean Corpuscular Hemoglobin 30.6 pg (28.0-32.0); Mean Corpuscular Hgb Conc. 33.7 g/dL (32.0-36.0); Mean Corpuscular Volume 90.9 fL (80.0-100.0); Monocytes # (auto) 0.5 10 ^3/uL (0-1.3); Monocytes % (auto) 8.4 % (0.0-12.0); Neutrophils % (auto) 53.9 % (37.0-80.0); Platelet Count (auto) 247 10^3/uL (140-450); Red Blood Cells 4.09 10^6/uL (4.0-5.20); Red Cell Distribution Width 14.1 % (11.8-14.3); White Blood Cell 5.7 10^3/uL (4.4-10.8)
[2020-06-05 12:35] LABS: Urine Bacteria NONE SEEN /hpf (None Seen); Urine Blood Negative /uL (Negative); Urine Specific Gravity 1.013 (1.001-1.035); Urine WBC 3 /hpf (0 - 5)
[2020-06-05 12:58] LABS: Albumin 3.5 g/dL (3.4-5.0); BUN/Creatinine Ratio 21.7; Calcium 9.2 mg/dL (8.5-10.1); Phosphorus 3.2 mg/dL (2.5-4.90); Potassium 4.5 mmol/L (3.5-5.1)
== END | disposition home or self-care (01) ==
LOC: LAB 12:05
PROVIDERS: ATTEND Student in an Organized Health Care Education/Training Program
DX: E11.22 Type 2 diabetes mellitus with diabetic chronic kidney disease (principal); N18.31 Chronic kidney disease, stage 3a; D63.1 Anemia in chronic kidney disease; E21.3 Hyperparathyroidism, unspecified; R82.90 Unspecified abnormal findings in urine; M10.9 Gout, unspecified; R80.9 Proteinuria, unspecified; E56.9 Vitamin deficiency, unspecified
CPT/HCPCS: 36415; 80069; 81001; 82306; 82570; 83036; 83970; 84156; 84550; 85025

== ENCOUNTER 2020-09-18 17:14 | Emergency (ER) | payer MEDICARE, OTHER ==
[~2020-09-18] VITALS: Ht 162.6 cm; Wt 68.9 kg
[~2020-09-18 17:14] MED LIST changes: +ISOS1TAB28 PO; -ISOS30TA4 PO
[2020-09-18 18:26] LABS: Basophils # (auto) 0 10 ^3/uL (0-0.2); Basophils % (auto) 0.5 % (0.0-2.0); Eosinophils # (auto) 0.2 10 ^3/uL (0-0.8); Eosinophils % (auto) 2.3 % (0.0-7.0); Hematocrit 35.6 % (36.0-46.0); Hemoglobin 12.1 g/dL (12.2-16.2); Lymphocytes # (auto) 2.5 10 ^3/uL (0.4-5.4); Mean Corpuscular Hemoglobin 30.8 pg (28.0-32.0); Mean Corpuscular Volume 90.7 fL (80.0-100.0); Monocytes # (auto) 0.6 10 ^3/uL (0-1.3); Monocytes % (auto) 7.1 % (0.0-12.0); Neutrophils # (auto) 4.7 10 ^3/uL (1.6-8.6); Neutrophils % (auto) 59.1 % (37.0-80.0); Nucleated Red Blood Cells % 0.1 %; Red Blood Cells 3.92 10^6/uL (4.0-5.20); Red Cell Distribution Width 14.3 % (11.8-14.3); White Blood Cell 7.9 10^3/uL (4.4-10.8)
[2020-09-18 18:33] LABS: Albumin 3.5 g/dL (3.4-5.0); Calcium 9.5 mg/dL (8.5-10.1); Potassium 4.4 mmol/L (3.5-5.1)
[2020-09-18 18:42] LABS: BUN/Creatinine Ratio 27.3; Bilirubin, Total 0.3 mg/dL (0.2-1.0); Total Protein 6.8 g/dL (6.4-8.2)
[2020-09-18 21:41] LABS: Urine Bacteria FEW /hpf (None Seen); Urine Blood Negative /uL (Negative); Urine Hyaline Cast FEW /lpf (0 - 2); Urine Specific Gravity 1.018 (1.001-1.035); Urine WBC 4 /hpf (0 - 5)
[2020-09-18] MEDS ORDERED: APIXABAN 2.5 MG TAB ONE (22:14)
[2020-09-18] MEDS ORDERED: PATIENTS OWN MEDICATION (ELIQUIS 2.5 MG) PO ONE (22:15)
[2020-09-18 23:04] VITALS: BP 137/96
== END 2020-09-18 23:06 | disposition home or self-care (01) ==
LOC: ER 17:14
DX: H53.9 Unspecified visual disturbance (principal); I10 Essential (primary) hypertension; E78.5 Hyperlipidemia, unspecified; J44.9 Chronic obstructive pulmonary disease, unspecified; I25.10 Atherosclerotic heart disease of native coronary artery without angina pectoris; I48.91 Unspecified atrial fibrillation
CPT/HCPCS: 36415; 70450; 80053; 81001; 83735; 84443; 85025; 93005; 93886

== ENCOUNTER → 2020-11-20 | Outpatient (CLI) | payer MEDICARE, OTHER ==
[2020-11-20 14:30] LABS: Urine Bacteria NONE SEEN /hpf (None Seen); Urine Blood Negative /uL (Negative); Urine Hyaline Cast FEW /lpf (0 - 2); Urine Mucus FEW (None Seen); Urine Specific Gravity 1.018 (1.001-1.035); Urine WBC 23 /hpf (0 - 5)
[2020-11-20 14:31] LABS: Basophils # (auto) 0 10 ^3/uL (0-0.2); Basophils % (auto) 0.3 % (0.0-2.0); Eosinophils # (auto) 0.1 10 ^3/uL (0-0.8); Eosinophils % (auto) 2.7 % (0.0-7.0); Hematocrit 32.9 % (36.0-46.0); Hemoglobin 10.9 g/dL (12.2-16.2); Lymphocytes # (auto) 1.5 10 ^3/uL (0.4-5.4); Lymphocytes % (auto) 28.4 % (10.0-50.0); Mean Corpuscular Hemoglobin 29.9 pg (28.0-32.0); Mean Corpuscular Volume 90.6 fL (80.0-100.0); Monocytes # (auto) 0.6 10 ^3/uL (0-1.3); Monocytes % (auto) 10.2 % (0.0-12.0); Neutrophils # (auto) 3.2 10 ^3/uL (1.6-8.6); Neutrophils % (auto) 58.4 % (37.0-80.0); Nucleated Red Blood Cells % 0.1 %; Red Blood Cells 3.63 10^6/uL (4.0-5.20); Red Cell Distribution Width 14.4 % (11.8-14.3); White Blood Cell 5.4 10^3/uL (4.4-10.8)
[2020-11-20 14:38] LABS: Protein, Urine 30.3 mg/dL (0.0-11.9)
[2020-11-20 14:49] LABS: Micro Albumin 52.4 mg/L (0-30.0)
[2020-11-20 15:00] LABS: Albumin 3.2 g/dL (3.4-5.0); Calcium 9.4 mg/dL (8.5-10.1); Potassium 4.5 mmol/L (3.5-5.1)
[2020-11-20 15:04] LABS: Bilirubin, Total 0.2 mg/dL (0.2-1.0); Phosphorus 3.7 mg/dL (2.5-4.90); Total Protein 6.1 g/dL (6.4-8.2); Uric Acid 5.7 mg/dL (2.6-6.0)
== END | disposition home or self-care (01) ==
LOC: LAB 13:58
PROVIDERS: ATTEND Student in an Organized Health Care Education/Training Program
DX: I12.9 Hypertensive chronic kidney disease with stage 1 through stage 4 chronic kidney disease, or unspecified chronic kidney disease (principal); N18.31 Chronic kidney disease, stage 3a; D63.1 Anemia in chronic kidney disease; E21.3 Hyperparathyroidism, unspecified; M10.9 Gout, unspecified; R80.9 Proteinuria, unspecified; I48.91 Unspecified atrial fibrillation
CPT/HCPCS: 36415; 80053; 80069; 81001; 82043; 82306; 82570; 83970; 84156; 84443; 84550; 85025

== ENCOUNTER 2021-04-14 15:00 | Emergency (ER) | payer MEDICARE, OTHER ==
[~2021-04-14] VITALS: Ht 162.6 cm; Wt 68.9 kg
[2021-04-14 15:08] VITALS: BP 158/78
== END 2021-04-14 16:51 | disposition left against medical advice (07) ==
LOC: EDBD → ER 15:00
DX: R51.9 Headache, unspecified (principal); I25.10 Atherosclerotic heart disease of native coronary artery without angina pectoris; I25.2 Old myocardial infarction; I48.91 Unspecified atrial fibrillation; I10 Essential (primary) hypertension; J44.9 Chronic obstructive pulmonary disease, unspecified; E78.5 Hyperlipidemia, unspecified; Z79.899 Other long term (current) drug therapy; Z88.0 Allergy status to penicillin; Z88.2 Allergy status to sulfonamides; Z88.8 Allergy status to other drugs, medicaments and biological substances; Z91.018 Allergy to other foods; Z91.013 Allergy to seafood; Z91.010 Allergy to peanuts; Z86.73 Personal history of transient ischemic attack (TIA), and cerebral infarction without residual deficits
CPT/HCPCS: 70450; 74176

== ENCOUNTER → 2021-06-16 | Outpatient (CLI) | payer MEDICARE, OTHER ==
[2021-06-16 11:02] LABS: Basophils # (auto) 0 10 ^3/uL (0-0.2); Basophils % (auto) 0.5 % (0.0-2.0); Eosinophils # (auto) 0.2 10 ^3/uL (0-0.8); Eosinophils % (auto) 2.8 % (0.0-7.0); Hematocrit 35.9 % (36.0-46.0); Hemoglobin 11.9 g/dL (12.2-16.2); Lymphocytes % (auto) 35.5 % (10.0-50.0); Mean Corpuscular Hemoglobin 30.1 pg (28.0-32.0); Mean Corpuscular Hgb Conc. 33.3 g/dL (32.0-36.0); Mean Corpuscular Volume 90.4 fL (80.0-100.0); Monocytes # (auto) 0.5 10 ^3/uL (0-1.3); Monocytes % (auto) 8.4 % (0.0-12.0); Neutrophils # (auto) 2.9 10 ^3/uL (1.6-8.6); Neutrophils % (auto) 52.8 % (37.0-80.0); Nucleated Red Blood Cells % 0.1 %; Red Blood Cells 3.97 10^6/uL (4.0-5.20); Red Cell Distribution Width 13.8 % (11.8-14.3); White Blood Cell 5.5 10^3/uL (4.4-10.8)
[2021-06-16 11:19] LABS: Urine Bacteria NONE SEEN /hpf (None Seen); Urine Blood Negative /uL (Negative); Urine Specific Gravity 1.014 (1.001-1.035); Urine WBC 3 /hpf (0 - 5)
[2021-06-16 11:47] LABS: Albumin 3.6 g/dL (3.4-5.0); Potassium 4.9 mmol/L (3.5-5.1)
[2021-06-16 11:51] LABS: BUN/Creatinine Ratio 22.1; Bilirubin, Total 0.5 mg/dL (0.2-1.0); Total Protein 6.7 g/dL (6.4-8.2)
== END | disposition home or self-care (01) ==
LOC: LAB 10:16
PROVIDERS: ATTEND Internal Medicine
DX: I10 Essential (primary) hypertension (principal)
CPT/HCPCS: 36415; 80053; 81001; 85025

== ENCOUNTER → 2021-06-28 | Outpatient (CLI) | payer MEDICARE, OTHER ==
[2021-06-28 11:42] LABS: Urine Bacteria NONE SEEN /hpf (None Seen); Urine Blood Negative /uL (Negative); Urine Specific Gravity 1.019 (1.001-1.035); Urine WBC 2 /hpf (0 - 5)
[2021-06-28 11:48] LABS: Protein, Urine 35.2 mg/dL (0.0-11.9)
[2021-06-28 13:29] LABS: Basophils # (auto) 0 10 ^3/uL (0-0.2); Basophils % (auto) 0.4 % (0.0-2.0); Eosinophils # (auto) 0.1 10 ^3/uL (0-0.8); Eosinophils % (auto) 1.9 % (0.0-7.0); Hematocrit 36.4 % (36.0-46.0); Hemoglobin 11.9 g/dL (12.2-16.2); Lymphocytes # (auto) 1.8 10 ^3/uL (0.4-5.4); Lymphocytes % (auto) 29.6 % (10.0-50.0); Mean Corpuscular Hemoglobin 29.5 pg (28.0-32.0); Mean Corpuscular Hgb Conc. 32.6 g/dL (32.0-36.0); Mean Corpuscular Volume 90.5 fL (80.0-100.0); Monocytes # (auto) 0.4 10 ^3/uL (0-1.3); Monocytes % (auto) 6.7 % (0.0-12.0); Neutrophils # (auto) 3.6 10 ^3/uL (1.6-8.6); Neutrophils % (auto) 61.4 % (37.0-80.0); Nucleated Red Blood Cells % 0.1 %; Red Blood Cells 4.02 10^6/uL (4.0-5.20); Red Cell Distribution Width 13.9 % (11.8-14.3); White Blood Cell 5.9 10^3/uL (4.4-10.8)
[2021-06-28 14:40] LABS: Albumin 3.7 g/dL (3.4-5.0); Bilirubin, Total 0.4 mg/dL (0.2-1.0); Calcium 9.9 mg/dL (8.5-10.1); Potassium 4.8 mmol/L (3.5-5.1); Total Protein 6.7 g/dL (6.4-8.2)
== END | disposition home or self-care (01) ==
LOC: LAB 10:28
PROVIDERS: ATTEND Student in an Organized Health Care Education/Training Program
DX: N18.31 Chronic kidney disease, stage 3a (principal); D63.1 Anemia in chronic kidney disease; M10.9 Gout, unspecified; R80.9 Proteinuria, unspecified; E56.9 Vitamin deficiency, unspecified; N39.0 Urinary tract infection, site not specified; R82.90 Unspecified abnormal findings in urine; R76.0 Raised antibody titer; I77.6 Arteritis, unspecified
CPT/HCPCS: 36415; 80053; 81001; 82306; 82570; 84156; 85025; 86038; 86160; 86256; 87086

== ENCOUNTER → 2021-10-12 | Outpatient (CLI) | payer MEDICARE, OTHER ==
[2021-10-12 11:27] LABS: Hemoglobin 11.6 g/dL (12.2-16.2); Mean Corpuscular Hemoglobin 29.7 pg (28.0-32.0); White Blood Cell 6.3 10^3/uL (4.4-10.8)
[2021-10-12 11:36] LABS: Urine Bacteria NONE SEEN /hpf (None Seen); Urine Blood Negative /uL (Negative); Urine Specific Gravity 1.018 (1.001-1.035); Urine WBC 2 /hpf (0 - 5)
[2021-10-12 11:44] LABS: Hematocrit 35.6 % (36.0-46.0); Mean Corpuscular Hgb Conc. 32.7 g/dL (32.0-36.0); Mean Corpuscular Volume 90.8 fL (80.0-100.0); Red Blood Cells 3.92 10^6/uL (4.0-5.20); Red Cell Distribution Width 13.8 % (11.8-14.3)
[2021-10-12 11:46] LABS: Band Neutrophils % (manual) 0; Basophils % (manual) 0 (0.0-2.0); Blast Cells 0; Metamyelocytes % 0; Myelocytes % 0; Promyelocytes % 0; Reactive Lymphocytes 0
[2021-10-12 12:11] LABS: Potassium 5.5 mmol/L (3.5-5.1)
[2021-10-12 12:13] LABS: Free T4 (Free Thyroxine) 1.31 ng/dL (0.89-1.76)
[2021-10-12 12:28] LABS: Albumin 3.7 g/dL (3.4-5.0); BUN/Creatinine Ratio 21.2; Bilirubin, Total 0.4 mg/dL (0.2-1.0); Calcium 10.3 mg/dL (8.5-10.1); Total Protein 6.8 g/dL (6.4-8.2); Uric Acid 6.3 mg/dL (2.6-6.0)
[2021-10-12 12:32] LABS: Thyroid Stimulating Hormone 1.48 uIU/mL (0.358-3.74)
[2021-10-12 13:22] LABS: Eosinophils % (manual) 2 (0-7); Lymphocytes % (manual) 29 (10.0-50.0); Monocytes % (manual) 10 (0-12)
== END | disposition home or self-care (01) ==
LOC: LAB 10:45
PROVIDERS: ATTEND Internal Medicine
DX: I12.9 Hypertensive chronic kidney disease with stage 1 through stage 4 chronic kidney disease, or unspecified chronic kidney disease (principal); N18.30 Chronic kidney disease, stage 3 unspecified; D64.9 Anemia, unspecified
CPT/HCPCS: 36415; 80053; 80061; 81001; 82306; 82607; 83615; 83970; 84439; 84443; 84550; 85007; 85025; 85027; 85045; 85652

== ENCOUNTER → 2021-12-23 | Outpatient (CLI) | payer MEDICARE, OTHER ==
[2021-12-23 14:38] LABS: Basophils # (auto) 0 10 ^3/uL (0-0.2); Basophils % (auto) 0.5 % (0.0-2.0); Eosinophils # (auto) 0.1 10 ^3/uL (0-0.8); Eosinophils % (auto) 1.9 % (0.0-7.0); Hemoglobin 9.9 g/dL (12.2-16.2); Lymphocytes # (auto) 2.1 10 ^3/uL (0.4-5.4); Lymphocytes % (auto) 30.3 % (10.0-50.0); Mean Corpuscular Volume 87.3 fL (80.0-100.0); Monocytes # (auto) 0.7 10 ^3/uL (0-1.3); Monocytes % (auto) 9.8 % (0.0-12.0); Neutrophils # (auto) 3.9 10 ^3/uL (1.6-8.6); Neutrophils % (auto) 57.5 % (37.0-80.0); Nucleated Red Blood Cells % 0.1 %; Red Blood Cells 3.55 10^6/uL (4.0-5.20); Red Cell Distribution Width 13.9 % (11.8-14.3); White Blood Cell 6.8 10^3/uL (4.4-10.8)
[2021-12-23 14:47] LABS: Urine Bacteria NONE SEEN /hpf (None Seen); Urine Blood Negative /uL (Negative); Urine Specific Gravity 1.017 (1.001-1.035); Urine WBC 13 /hpf (0 - 5)
[2021-12-23 14:52] LABS: Protein, Urine 22.3 mg/dL (0.0-11.9)
[2021-12-23 15:10] LABS: Calcium 9.3 mg/dL (8.5-10.1); Potassium 4.7 mmol/L (3.5-5.1)
== END | disposition home or self-care (01) ==
LOC: LAB 14:23
PROVIDERS: ATTEND Student in an Organized Health Care Education/Training Program
DX: D63.1 Anemia in chronic kidney disease (principal); N18.30 Chronic kidney disease, stage 3 unspecified; R80.9 Proteinuria, unspecified
CPT/HCPCS: 36415; 80048; 81001; 82570; 84156; 85025

== ENCOUNTER → 2022-01-27 | Outpatient (CLI) | payer MEDICARE, OTHER ==
[2022-01-27 12:29] LABS: Basophils # (auto) 0 10 ^3/uL (0-0.2); Basophils % (auto) 0.5 % (0.0-2.0); Eosinophils # (auto) 0.2 10 ^3/uL (0-0.8); Eosinophils % (auto) 2.6 % (0.0-7.0); Hemoglobin 10.1 g/dL (12.2-16.2); Lymphocytes % (auto) 33.6 % (10.0-50.0); Mean Corpuscular Hemoglobin 28.1 pg (28.0-32.0); Mean Corpuscular Hgb Conc. 32.6 g/dL (32.0-36.0); Mean Corpuscular Volume 86.3 fL (80.0-100.0); Monocytes # (auto) 0.6 10 ^3/uL (0-1.3); Monocytes % (auto) 9.3 % (0.0-12.0); Neutrophils # (auto) 3.3 10 ^3/uL (1.6-8.6); Red Blood Cells 3.59 10^6/uL (4.0-5.20); Red Cell Distribution Width 14.2 % (11.8-14.3); White Blood Cell 6.1 10^3/uL (4.4-10.8)
[2022-01-27 13:02] LABS: Albumin 3.4 g/dL (3.4-5.0); Calcium 9.6 mg/dL (8.5-10.1); Magnesium 2.3 mg/dL (1.6-2.6); Potassium 4.9 mmol/L (3.5-5.1); Protein, Urine 26.5 mg/dL (0.0-11.9)
[2022-01-27 13:05] LABS: BUN/Creatinine Ratio 23.1; Bilirubin, Total 0.4 mg/dL (0.2-1.0); Total Protein 6.4 g/dL (6.4-8.2)
== END | disposition home or self-care (01) ==
LOC: LAB 12:10
PROVIDERS: ATTEND Student in an Organized Health Care Education/Training Program
DX: N18.31 Chronic kidney disease, stage 3a (principal); N39.0 Urinary tract infection, site not specified; D63.1 Anemia in chronic kidney disease; R80.9 Proteinuria, unspecified; R82.90 Unspecified abnormal findings in urine
CPT/HCPCS: 36415; 80053; 82570; 83735; 84156; 85025; 87086

== ENCOUNTER → 2022-05-03 | Outpatient (CLI) | payer MEDICARE, OTHER ==
[2022-05-03 15:47] LABS: Basophils # (auto) 0 10 ^3/uL (0-0.2); Eosinophils # (auto) 0.2 10 ^3/uL (0-0.8); Monocytes # (auto) 0.5 10 ^3/uL (0-1.3)
[2022-05-03 15:49] LABS: Basophils % (auto) 0.3 % (0.0-2.0); Eosinophils % (auto) 2.7 % (0.0-7.0); Hematocrit 28.9 % (36.0-46.0); Hemoglobin 9.6 g/dL (12.2-16.2); Lymphocytes % (auto) 30.4 % (10.0-50.0); Mean Corpuscular Hemoglobin 27.2 pg (28.0-32.0); Mean Corpuscular Hgb Conc. 33.2 g/dL (32.0-36.0); Mean Corpuscular Volume 81.7 fL (80.0-100.0); Monocytes % (auto) 8.1 % (0.0-12.0); Neutrophils # (auto) 3.9 10 ^3/uL (1.6-8.6); Neutrophils % (auto) 58.5 % (37.0-80.0); Red Blood Cells 3.53 10^6/uL (4.0-5.20); Red Cell Distribution Width 15.5 % (11.8-14.3); White Blood Cell 6.6 10^3/uL (4.4-10.8)
[2022-05-03 15:59] LABS: Urine Bacteria NONE SEEN /hpf (None Seen); Urine Blood Negative /uL (Negative); Urine Specific Gravity 1.018 (1.001-1.035); Urine WBC 46 /hpf (0 - 5)
[2022-05-03 16:26] LABS: Albumin 3.4 g/dL (3.4-5.0); BUN/Creatinine Ratio 24.7; Calcium 9.8 mg/dL (8.5-10.1); Potassium 5.2 mmol/L (3.5-5.1)
[2022-05-03 16:28] LABS: Bilirubin, Total 0.3 mg/dL (0.2-1.0); Phosphorus 2.9 mg/dL (2.5-4.90); Total Protein 6.6 g/dL (6.4-8.2)
== END | disposition home or self-care (01) ==
LOC: LAB 15:32
PROVIDERS: ATTEND Student in an Organized Health Care Education/Training Program
DX: N18.31 Chronic kidney disease, stage 3a (principal); D63.1 Anemia in chronic kidney disease; R80.9 Proteinuria, unspecified; E83.39 Other disorders of phosphorus metabolism; R82.90 Unspecified abnormal findings in urine
CPT/HCPCS: 36415; 80053; 81001; 83970; 84100; 85025

== ENCOUNTER → 2022-12-22 | Outpatient (CLI) | payer MEDICARE, OTHER ==
[~2022-12-22] MED LIST changes: -ESCI-34 PO; +ESCI1TAB37 PO; +GABA-1250 PO; -GABA300C10 PO
[2022-12-22 10:35] LABS: Urine Bacteria NONE SEEN /hpf (None Seen); Urine Blood Negative /uL (Negative); Urine Clarity Clear (Clear); Urine Color Yellow (Yellow); Urine Protein, UAD TRACE (Negative); Urine Specific Gravity 1.016 (1.001-1.035); Urine Urobilinogen Normal (Negative); Urine WBC 1 /hpf (0 - 5)
[2022-12-22 10:37] LABS: Basophils # (auto) 0 10 ^3/uL (0-0.2); Eosinophils # (auto) 0.2 10 ^3/uL (0-0.8); Lymphocytes # (auto) 1.7 10 ^3/uL (0.4-5.4); Monocytes # (auto) 0.5 10 ^3/uL (0-1.3); Neutrophils # (auto) 3.2 10 ^3/uL (1.6-8.6); White Blood Cell 5.6 10^3/uL (4.4-10.8)
[2022-12-22 10:42] LABS: Basophils % (auto) 0.5 % (0.0-2.0); Eosinophils % (auto) 3.4 % (0.0-7.0); Hematocrit 22.6 % (36.0-46.0); Hemoglobin 7.1 g/dL (12.2-16.2); Lymphocytes % (auto) 29.4 % (10.0-50.0); Mean Corpuscular Hemoglobin 23.9 pg (28.0-32.0); Mean Corpuscular Hgb Conc. 31.6 g/dL (32.0-36.0); Mean Corpuscular Volume 75.7 fL (80.0-100.0); Monocytes % (auto) 9.4 % (0.0-12.0); Neutrophils % (auto) 57.3 % (37.0-80.0); Red Blood Cells 2.99 10^6/uL (4.0-5.20); Red Cell Distribution Width 17.2 % (11.8-14.3)
[2022-12-22 11:01] LABS: Albumin 3.4 g/dL (3.4-5.0); BUN/Creatinine Ratio 20.5 (10.0-20.0); Bilirubin, Total 0.3 mg/dL (0.2-1.0); Calcium 9.7 mg/dL (8.5-10.1); Magnesium 2.3 mg/dL (1.6-2.6); Phosphorus 3.2 mg/dL (2.5-4.90); Total Protein 6.5 g/dL (6.4-8.2)
[2022-12-22 11:26] LABS: Hypochromia Slight; Platelet Estimate Adequate
[2022-12-22 11:30] LABS: Erythrocyte Sedimentation Rate 23 mm/hr (0-20)
== END | disposition home or self-care (01) ==
LOC: LAB 09:53
PROVIDERS: ATTEND Internal Medicine
DX: I10 Essential (primary) hypertension (principal); I48.0 Paroxysmal atrial fibrillation
CPT/HCPCS: 36415; 80053; 80061; 81001; 82043; 83735; 84100; 84439; 84443; 84550; 85025; 85652

== ENCOUNTER 2022-12-26 10:40 | Inpatient (IN) | payer MEDICARE, OTHER ==
[2022-12-26] VITALS (9 sets, daily range): BP systolic 126–175; BP diastolic 54–68; PULSE 72–94; RESP 15–24; TEMP 97.7–99; O2SAT 94–95
[~2022-12-26] VITALS: Ht 162.6 cm; Wt 68.3 kg
[2022-12-26 11:34] LABS: Basophils # (auto) 0 10 ^3/uL (0-0.2); Eosinophils # (auto) 0.1 10 ^3/uL (0-0.8); Mean Corpuscular Volume 75.8 fL (80.0-100.0); White Blood Cell 5.1 10^3/uL (4.4-10.8)
[2022-12-26 11:35] LABS: Eosinophils % (auto) 2.6 % (0.0-7.0); Hematocrit 22.2 % (36.0-46.0); Lymphocytes # (auto) 1.4 10 ^3/uL (0.4-5.4); Lymphocytes % (auto) 27.6 % (10.0-50.0); Mean Corpuscular Hemoglobin 23.3 pg (28.0-32.0); Mean Corpuscular Hgb Conc. 30.8 g/dL (32.0-36.0); Monocytes # (auto) 0.5 10 ^3/uL (0-1.3); Monocytes % (auto) 8.9 % (0.0-12.0); Neutrophils % (auto) 59.9 % (37.0-80.0); Red Blood Cells 2.93 10^6/uL (4.0-5.20)
[2022-12-26 11:40] LABS: Hemoglobin 6.8 g/dL (12.2-16.2)
[2022-12-26 11:56] LABS: INR 0.98 (0.9-1.15); Partial Thromboplastin Time 25.9 SEC (24.5-34.5); Prothrombin Time 10.3 sec (9.3-11.8)
[2022-12-26] MEDS ORDERED: MORPHINE SULFATE INJ 2 MG/ml SYRG IV PRN ×2 (12:00)
[2022-12-26] MEDS ORDERED: NITROGLYCERIN 0.4 MG SL TAB SL PRN (12:00)
[2022-12-26 12:28] LABS: Potassium 5.3 mmol/L (3.5-5.1)
[2022-12-26 12:36] LABS: Albumin 3.6 g/dL (3.4-5.0); BUN/Creatinine Ratio 20.1 (10.0-20.0); Bilirubin, Total 0.3 mg/dL (0.2-1.0); Calcium 9.8 mg/dL (8.5-10.1); Total Protein 6.1 g/dL (6.4-8.2)
[2022-12-26 13:26] LABS: % Iron Saturation 4.8 % (15-50)
[2022-12-26 13:35] LABS: Folate (Folic Acid) > 24.00 ng/mL (5.38-24)
[2022-12-26 13:36] LABS: Thyroid Stimulating Hormone 1.7 uIU/mL (0.358-3.74)
[2022-12-26] MEDS: SODIUM CHLORIDE 0.9% 1,000 ML IV SCH (15:13)
[2022-12-26 15:54] LABS: Platelet Estimate Adequate
[2022-12-26 15:55] LABS: Hypochromia Slight
[2022-12-26 16:41] LABS: Urine Bacteria NONE SEEN /hpf (None Seen); Urine Blood Negative /uL (Negative); Urine Clarity Clear (Clear); Urine Color Yellow (Yellow); Urine Protein, UAD Negative (Negative); Urine Specific Gravity 1.014 (1.001-1.035); Urine Urobilinogen Normal (Negative); Urine WBC 1 /hpf (0 - 5); Urine pH 6.5 (5.0-8.0)
[2022-12-26] MEDS ORDERED: D5W/SOD CHLO 0.9% 1,000 ML IV SCH (19:30)
[2022-12-26] MEDS: PANTOPRAZOLE 40 MG/10 ML VIAL INJ IV SCH (22:42)
[2022-12-26] MEDS: GABAPENTIN 300 MG CAP PO SCH (22:42)
[2022-12-26] MEDS: ATORVASTATIN 20 MG TAB PO SCH (22:42)
[2022-12-27] VITALS: BP 135/113; PULSE 83; RESP 18; TEMP 98.8
[2022-12-27 00:20] VITALS: BP 141/58; PULSE 83; RESP 18; TEMP 98.8
[2022-12-27] MEDS: SODIUM CHLORIDE 0.9% 1,000 ML IV SCH (04:08)
[2022-12-27 05:50] LABS: Basophils # (auto) 0 10 ^3/uL (0-0.2); Eosinophils # (auto) 0.2 10 ^3/uL (0-0.8); Eosinophils % (auto) 3.3 % (0.0-7.0); Hemoglobin 9.6 g/dL (12.2-16.2); Lymphocytes # (auto) 1.7 10 ^3/uL (0.4-5.4); Monocytes # (auto) 0.6 10 ^3/uL (0-1.3); Monocytes % (auto) 9.8 % (0.0-12.0); Neutrophils # (auto) 3.3 10 ^3/uL (1.6-8.6); Nucleated Red Blood Cells % 0.1 %; White Blood Cell 5.8 10^3/uL (4.4-10.8)
[2022-12-27 05:52] LABS: Basophils % (auto) 0.5 % (0.0-2.0); Hematocrit 29.4 % (36.0-46.0); Lymphocytes % (auto) 29.4 % (10.0-50.0); Mean Corpuscular Hemoglobin 25.3 pg (28.0-32.0); Mean Corpuscular Hgb Conc. 32.6 g/dL (32.0-36.0); Mean Corpuscular Volume 77.4 fL (80.0-100.0); Red Blood Cells 3.79 10^6/uL (4.0-5.20); Red Cell Distribution Width 16.7 % (11.8-14.3)
[2022-12-27 06:09] LABS: Albumin 3.5 g/dL (3.4-5.0); BUN/Creatinine Ratio 21.1 (10.0-20.0); Calcium 9.9 mg/dL (8.7-10.4); Potassium 4.7 mmol/L (3.5-5.1)
[2022-12-27 06:12] LABS: Bilirubin, Total 0.6 mg/dL (0.2-1.0); Total Protein 6.2 g/dL (6.4-8.2)
[2022-12-27] MEDS: GABAPENTIN 300 MG CAP PO SCH ×2 (08:53→22:05)
[2022-12-27] MEDS: CITALOPRAM HYDROBR 20 MG TAB PO SCH (08:55)
[2022-12-27] MEDS: PANTOPRAZOLE 40 MG/10 ML VIAL INJ IV SCH ×2 (08:55→22:05)
[2022-12-27] MEDS: dilTIAZem HCL 180MG ER CAP PO SCH (08:56)
[2022-12-27 09:42] VITALS: PULSE 78; RESP 19; O2SAT 95
[2022-12-27] MEDS ORDERED: hydrALAZINE HCL 20 MG/ML VL IV PRN (09:45)
[2022-12-27] MEDS ORDERED: CYANOCOBALAMIN (B-12) 1000 MCG/1 ML VIAL IM ONE (09:45)
[2022-12-27] MEDS ORDERED: DEXTROSE (50%) 50ML SYRG IV PRN (09:45)
[2022-12-27] MEDS: ONDANSETRON HCL 4 MG/2 ML VIAL IV PRN (10:31)
[2022-12-27] MEDS: amLODIPine BESYLATE 5 MG TAB PO SCH (10:32)
[2022-12-27] MEDS: ACCU-CHEK COMFORT CURVE STRIP VI SCH ×2 (11:41→17:35)
[2022-12-27] MEDS: InsuLIN REG 1unit/0.01ml Soln (100units/ml) SC SCH ×3 (11:41→23:46)
[2022-12-27 20:00] VITALS: PULSE 85; RESP 20; O2SAT 95
[2022-12-27] MEDS ORDERED: FUR20T PO (21:41)
[2022-12-27] MEDS ORDERED: PANT40T PO (21:44)
[2022-12-27 21:46] VITALS: BP 157/61; PULSE 87; RESP 18; TEMP 98.5; O2SAT 97
[2022-12-27 22:00] VITALS: BP 158/59; PULSE 87; RESP 17; TEMP 98.2; O2SAT 98
[2022-12-27] MEDS: ATORVASTATIN 20 MG TAB PO SCH (22:05)
[2022-12-28 04:48] VITALS: BP 128/51; PULSE 79; RESP 22; TEMP 98.3; O2SAT 94
[2022-12-28] MEDS: InsuLIN REG 1unit/0.01ml Soln (100units/ml) SC SCH ×4 (05:36→23:17)
[2022-12-28 06:03] LABS: Basophils # (auto) 0 10 ^3/uL (0-0.2); Basophils % (auto) 0.3 % (0.0-2.0); Eosinophils # (auto) 0.1 10 ^3/uL (0-0.8); Eosinophils % (auto) 0.7 % (0.0-7.0); Hematocrit 31.5 % (36.0-46.0); Hemoglobin 10.1 g/dL (12.2-16.2); Lymphocytes # (auto) 1.5 10 ^3/uL (0.4-5.4); Mean Corpuscular Hemoglobin 25.3 pg (28.0-32.0); Mean Corpuscular Hgb Conc. 32.1 g/dL (32.0-36.0); Mean Corpuscular Volume 78.7 fL (80.0-100.0); Monocytes # (auto) 0.8 10 ^3/uL (0-1.3); Monocytes % (auto) 9.8 % (0.0-12.0); Neutrophils # (auto) 5.4 10 ^3/uL (1.6-8.6); Neutrophils % (auto) 70.2 % (37.0-80.0); Nucleated Red Blood Cells % 0.1 %; Red Blood Cells 4.01 10^6/uL (4.0-5.20); Red Cell Distribution Width 16.7 % (11.8-14.3); White Blood Cell 7.7 10^3/uL (4.4-10.8)
[2022-12-28 06:26] LABS: Alanine Aminotransferase 16 U/L (7-40); Albumin 4.1 g/dL (3.2-4.8); Alkaline Phosphatase 96 U/L (46-116); Anion Gap 6.1 (5-15); Aspartate Aminotransferase 13 U/L (13-40); BUN/Creatinine Ratio 18.3 (10.0-20.0); Bilirubin, Total 0.6 mg/dL (0.2-1.0); Blood Urea Nitrogen 24 mg/dL (9-23); Calcium 10.3 mg/dL (8.7-10.4); Carbon Dioxide 24.9 mmol/L (20-30); Chloride 108 mmol/L (98-107); Glucose 96 mg/dL (74-106); Sodium 139 mmol/L (136-145); Total Protein 6.1 g/dL (5.7-8.2)
[2022-12-28 08:00] VITALS: BP 157/70; PULSE 75; PULSE 81; RESP 17; TEMP 97.9; O2SAT 92
[2022-12-28 08:06] LABS: AFP Serum Tumor Marker 3.4 ng/mL (0.0-8.7); Cancer Antigen (CA) 125 14.5 U/mL (0.0-38.1)
[2022-12-28 09:00] VITALS: BP 157/70; PULSE 93; RESP 17; TEMP 97.9; O2SAT 91
[2022-12-28] MEDS: CITALOPRAM HYDROBR 20 MG TAB PO SCH (09:18)
[2022-12-28] MEDS: dilTIAZem HCL 180MG ER CAP PO SCH (09:20)
[2022-12-28] MEDS: GABAPENTIN 300 MG CAP PO SCH ×2 (09:20→23:14)
[2022-12-28] MEDS: FERROUS SULFATE 325mg EC TAB PO SCH ×2 (09:21→18:04)
[2022-12-28] MEDS: PANTOPRAZOLE 40 MG/10 ML VIAL INJ IV SCH ×2 (09:21→23:13)
[2022-12-28] MEDS: amLODIPine BESYLATE 5 MG TAB PO SCH (09:21)
[2022-12-28] MEDS: CYANOCOBALAMIN 500 MCG TAB PO SCH (09:28)
[2022-12-28] MEDS ORDERED: PROPOFOL 10 MG/ML 20 ML IV ONE (11:06)
[2022-12-28] MEDS ORDERED: LIDOCAINE VISCOUS 2% 15ML UD ONE (12:52)
[2022-12-28] MEDS ORDERED: diphenhdrAMINE HCL 50 MG/1 ML VL ONE (12:53)
[2022-12-28] MEDS ORDERED: MIDAZOLAM HCL 2MG/2ML 2ml VIAL (1mg/ml) ONE ×2 (12:53→15:06)
[2022-12-28] MEDS ORDERED: fentaNYL CITRATE 100 MCG/2 ML VL ONE (12:54)
[2022-12-28] MEDS ORDERED: BENZOCAINE (DENTAL) 20 % SPRAY 60ML MT ONE (14:49)
[2022-12-28] MEDS ORDERED: ONDANSETRON HCL 4 MG/2 ML VIAL IV PRN (15:45)
[2022-12-28 17:00] VITALS: BP 121/52; PULSE 79; RESP 18; TEMP 98; O2SAT 97
[2022-12-28 20:00] VITALS: BP 121/52; PULSE 77; PULSE 79; RESP 17; O2SAT 97
[2022-12-28 22:00] VITALS: BP 147/63; PULSE 81; RESP 18; TEMP 98.3; O2SAT 94
[2022-12-28] MEDS: ATORVASTATIN 20 MG TAB PO SCH (23:13)
[2022-12-29] MEDS: ONDANSETRON HCL 4 MG/2 ML VIAL IV PRN (00:51)
[2022-12-29 05:00] VITALS: BP 130/49; PULSE 77; RESP 20; TEMP 98.1; O2SAT 98
[2022-12-29 05:58] LABS: Basophils # (auto) 0 10 ^3/uL (0-0.2); Basophils % (auto) 0.2 % (0.0-2.0); Eosinophils # (auto) 0 10 ^3/uL (0-0.8); Monocytes # (auto) 0.6 10 ^3/uL (0-1.3)
[2022-12-29] MEDS: InsuLIN REG 1unit/0.01ml Soln (100units/ml) SC SCH ×4 (06:00→23:49)
[2022-12-29 06:02] LABS: Eosinophils % (auto) 0.2 % (0.0-7.0); Hematocrit 31.4 % (36.0-46.0); Hemoglobin 9.9 g/dL (12.2-16.2); Lymphocytes # (auto) 1.1 10 ^3/uL (0.4-5.4); Lymphocytes % (auto) 14.2 % (10.0-50.0); Mean Corpuscular Hgb Conc. 31.7 g/dL (32.0-36.0); Monocytes % (auto) 8.1 % (0.0-12.0); Neutrophils # (auto) 5.8 10 ^3/uL (1.6-8.6); Neutrophils % (auto) 77.3 % (37.0-80.0); Red Blood Cells 3.97 10^6/uL (4.0-5.20); Red Cell Distribution Width 16.7 % (11.8-14.3); White Blood Cell 7.5 10^3/uL (4.4-10.8)
[2022-12-29 06:03] LABS: Alanine Aminotransferase 16 U/L (7-40); Albumin 4.2 g/dL (3.2-4.8); Alkaline Phosphatase 99 U/L (46-116); Aspartate Aminotransferase 15 U/L (13-40); Bilirubin, Total 0.6 mg/dL (0.2-1.0); Blood Urea Nitrogen 20 mg/dL (9-23); Calcium 10.3 mg/dL (8.7-10.4); Chloride 106 mmol/L (98-107); Glucose 110 mg/dL (74-106); Sodium 137 mmol/L (136-145); Total Protein 6.4 g/dL (5.7-8.2)
[2022-12-29] MEDS ORDERED: PANT40TA2 PO (07:33)
[2022-12-29] MEDS ORDERED: SUCR1SUS26 PO (07:33)
[2022-12-29 08:00] VITALS: BP 144/63; PULSE 79; PULSE 81; RESP 18; TEMP 98.8; O2SAT 93
[2022-12-29] MEDS: GABAPENTIN 300 MG CAP PO SCH ×2 (08:58→21:30)
[2022-12-29] MEDS: dilTIAZem HCL 180MG ER CAP PO SCH (08:58)
[2022-12-29] MEDS: FERROUS SULFATE 325mg EC TAB PO SCH ×2 (08:59→17:44)
[2022-12-29] MEDS: CITALOPRAM HYDROBR 20 MG TAB PO SCH (08:59)
[2022-12-29] MEDS: amLODIPine BESYLATE 5 MG TAB PO SCH (09:00)
[2022-12-29] MEDS: CYANOCOBALAMIN 500 MCG TAB PO SCH (09:00)
[2022-12-29] MEDS: PANTOPRAZOLE 40 MG/10 ML VIAL INJ IV SCH ×2 (09:01→21:31)
[2022-12-29 12:00] VITALS: BP 130/64; PULSE 81; RESP 18; TEMP 98; O2SAT 92
[2022-12-29 16:00] VITALS: BP 132/56; PULSE 92; RESP 20; TEMP 97.8; O2SAT 92
[2022-12-29 16:52] LABS: COVID19 ANTIGEN SOFIA FIA NEGATIVE (NEGATIVE)
[2022-12-29 20:00] VITALS: PULSE 75
[2022-12-29] MEDS: ATORVASTATIN 20 MG TAB PO SCH (21:31)
[2022-12-29 22:00] VITALS: BP 155/77; PULSE 81; RESP 16; TEMP 98.1; O2SAT 97
[2022-12-30] VITALS (7 sets, daily range): BP systolic 114–136; BP diastolic 38–56; PULSE 70–126; RESP 17–20; TEMP 97.4–97.8; O2SAT 88–98
[2022-12-30] MEDS: InsuLIN REG 1unit/0.01ml Soln (100units/ml) SC SCH ×3 (06:00→17:09)
[2022-12-30 07:07] LABS: Basophils # (auto) 0 10 ^3/uL (0-0.2); Basophils % (auto) 0.2 % (0.0-2.0); Eosinophils # (auto) 0 10 ^3/uL (0-0.8); Eosinophils % (auto) 0.5 % (0.0-7.0); Hematocrit 30.8 % (36.0-46.0); Hemoglobin 9.7 g/dL (12.2-16.2); Lymphocytes # (auto) 1.4 10 ^3/uL (0.4-5.4); Lymphocytes % (auto) 17.6 % (10.0-50.0); Mean Corpuscular Hemoglobin 25.1 pg (28.0-32.0); Mean Corpuscular Hgb Conc. 31.6 g/dL (32.0-36.0); Mean Corpuscular Volume 79.2 fL (80.0-100.0); Monocytes # (auto) 0.8 10 ^3/uL (0-1.3); Monocytes % (auto) 10.2 % (0.0-12.0); Neutrophils # (auto) 5.7 10 ^3/uL (1.6-8.6); Neutrophils % (auto) 71.5 % (37.0-80.0); Nucleated Red Blood Cells % 0.2 %; Red Blood Cells 3.88 10^6/uL (4.0-5.20); Red Cell Distribution Width 17.6 % (11.8-14.3); White Blood Cell 7.9 10^3/uL (4.4-10.8)
[2022-12-30 07:09] LABS: Alanine Aminotransferase 20 U/L (7-40); Alkaline Phosphatase 101 U/L (46-116); Anion Gap 4.8 (5-15); BUN/Creatinine Ratio 17.6 (10.0-20.0); Blood Urea Nitrogen 25 mg/dL (9-23); Calcium 10.2 mg/dL (8.7-10.4); Carbon Dioxide 26.2 mmol/L (20-30); Chloride 104 mmol/L (98-107); Glucose 117 mg/dL (74-106); Potassium 5.2 mmol/L (3.5-5.1); Sodium 135 mmol/L (136-145)
[2022-12-30 07:10] LABS: Albumin 4.1 g/dL (3.2-4.8); Aspartate Aminotransferase 18 U/L (13-40); Bilirubin, Total 0.5 mg/dL (0.2-1.0); Total Protein 6.3 g/dL (5.7-8.2)
[2022-12-30] MEDS: FERROUS SULFATE 325mg EC TAB PO SCH ×2 (07:52→17:09)
[2022-12-30] MEDS: GABAPENTIN 300 MG CAP PO SCH ×2 (09:20→22:15)
[2022-12-30] MEDS: ONDANSETRON HCL 4 MG/2 ML VIAL IV PRN (09:20)
[2022-12-30] MEDS: CYANOCOBALAMIN 500 MCG TAB PO SCH (09:20)
[2022-12-30] MEDS: PANTOPRAZOLE 40 MG/10 ML VIAL INJ IV SCH ×2 (09:20→22:14)
[2022-12-30] MEDS: dilTIAZem HCL 180MG ER CAP PO SCH (09:21)
[2022-12-30] MEDS: CITALOPRAM HYDROBR 20 MG TAB PO SCH (09:21)
[2022-12-30] MEDS: amLODIPine BESYLATE 5 MG TAB PO SCH (09:22)
[2022-12-30] MEDS ORDERED: FUROSEMIDE 20 MG/2 ML VIAL IV ONE (21:15)
[2022-12-30] MEDS: ATORVASTATIN 20 MG TAB PO SCH (22:16)
[2022-12-31] VITALS (17 sets, daily range): BP systolic 108–146; BP diastolic 36–76; PULSE 71–128; RESP 11–19; TEMP 97.5–98; O2SAT 91–98
[2022-12-31 00:06] LABS: Vitamin D, 25-Hydroxy 32.9 ng/mL (30.0-100.0)
[2022-12-31] MEDS: ONDANSETRON HCL 4 MG/2 ML VIAL IV PRN ×2 (00:19→11:00)
[2022-12-31] MEDS: InsuLIN REG 1unit/0.01ml Soln (100units/ml) SC SCH ×4 (05:46→18:00)
[2022-12-31 06:17] LABS: Basophils # (auto) 0 10 ^3/uL (0-0.2); Eosinophils # (auto) 0 10 ^3/uL (0-0.8); Eosinophils % (auto) 0.4 % (0.0-7.0); Lymphocytes # (auto) 0.9 10 ^3/uL (0.4-5.4); Mean Corpuscular Volume 79.9 fL (80.0-100.0); Monocytes # (auto) 0.7 10 ^3/uL (0-1.3); Neutrophils # (auto) 6.6 10 ^3/uL (1.6-8.6); Neutrophils % (auto) 80.1 % (37.0-80.0); Nucleated Red Blood Cells % 0.1 %; White Blood Cell 8.2 10^3/uL (4.4-10.8)
[2022-12-31 06:21] LABS: Basophils % (auto) 0.3 % (0.0-2.0); Hemoglobin 10.1 g/dL (12.2-16.2); Mean Corpuscular Hemoglobin 25.1 pg (28.0-32.0); Mean Corpuscular Hgb Conc. 31.4 g/dL (32.0-36.0); Monocytes % (auto) 8.2 % (0.0-12.0); Red Blood Cells 4.01 10^6/uL (4.0-5.20); Red Cell Distribution Width 17.4 % (11.8-14.3)
[2022-12-31 06:53] LABS: Anion Gap 5.2 (5-15); Carbon Dioxide 29.8 mmol/L (20-30); Chloride 101 mmol/L (98-107); Potassium 4.7 mmol/L (3.5-5.1); Sodium 136 mmol/L (136-145)
[2022-12-31 06:54] LABS: Calcium 10.7 mg/dL (8.7-10.4)
[2022-12-31 07:00] LABS: BUN/Creatinine Ratio 21.6 (10.0-20.0); Blood Urea Nitrogen 32 mg/dL (9-23); Glucose 121 mg/dL (74-106)
[2022-12-31 08:33] LABS: Base Excess 0.2 mmol/L (-2.0-2.0)
[2022-12-31] MEDS: FERROUS SULFATE 325mg EC TAB PO SCH ×2 (09:07→18:00)
[2022-12-31] MEDS ORDERED: FUROSEMIDE 20 MG/2 ML VIAL IV SCH (10:00)
[2022-12-31] MEDS: PANTOPRAZOLE 40 MG/10 ML VIAL INJ IV SCH ×2 (11:24→22:18)
[2022-12-31] MEDS: amLODIPine BESYLATE 5 MG TAB PO SCH (12:30)
[2022-12-31] MEDS: dilTIAZem HCL 180MG ER CAP PO SCH (12:30)
[2022-12-31] MEDS: CYANOCOBALAMIN 500 MCG TAB PO SCH (12:31)
[2022-12-31] MEDS: BUDESONIDE (INHALATION) 0.5 MG/2 ML NEB NEB SCH (18:09)
[2022-12-31 20:12] LABS: Base Excess 0.4 mmol/L (-2.0-2.0)
[2022-12-31] MEDS: ATORVASTATIN 20 MG TAB PO SCH (22:00)
[2022-12-31 22:48] LABS: Base Excess 4.1 mmol/L (-2.0-2.0)
[2023-01-01] VITALS (31 sets, daily range): BP systolic 105–160; BP diastolic 35–75; PULSE 74–144; RESP 12–21; TEMP 97.5–98.7; O2SAT 87–100
[2023-01-01 05:05] LABS: Basophils # (auto) 0 10 ^3/uL (0-0.2); Eosinophils # (auto) 0 10 ^3/uL (0-0.8); Mean Corpuscular Hemoglobin 25.2 pg (28.0-32.0); Monocytes # (auto) 0.6 10 ^3/uL (0-1.3); Nucleated Red Blood Cells % 0.1 %
[2023-01-01 05:08] LABS: Basophils % (auto) 0.2 % (0.0-2.0); Eosinophils % (auto) 0.5 % (0.0-7.0); Hematocrit 31.1 % (36.0-46.0); Mean Corpuscular Hgb Conc. 32.2 g/dL (32.0-36.0); Mean Corpuscular Volume 78.3 fL (80.0-100.0); Monocytes % (auto) 9.5 % (0.0-12.0); Neutrophils # (auto) 4.7 10 ^3/uL (1.6-8.6); Neutrophils % (auto) 74.8 % (37.0-80.0); Red Blood Cells 3.97 10^6/uL (4.0-5.20); Red Cell Distribution Width 17.5 % (11.8-14.3); White Blood Cell 6.3 10^3/uL (4.4-10.8)
[2023-01-01] MEDS: InsuLIN REG 1unit/0.01ml Soln (100units/ml) SC SCH ×3 (06:00→12:00)
[2023-01-01 06:04] LABS: Alanine Aminotransferase 20 U/L (7-40); Albumin 4.1 g/dL (3.2-4.8); Alkaline Phosphatase 102 U/L (46-116); Anion Gap 3.2 (5-15); Aspartate Aminotransferase 9 U/L (13-40); BUN/Creatinine Ratio 23.1 (10.0-20.0); Blood Urea Nitrogen 34 mg/dL (9-23); Calcium 10.1 mg/dL (8.7-10.4); Carbon Dioxide 32.8 mmol/L (20-30); Chloride 100 mmol/L (98-107); Glucose 106 mg/dL (74-106); Magnesium 2.2 mg/dL (1.6-2.6); Potassium 4.3 mmol/L (3.5-5.1); Sodium 136 mmol/L (136-145)
[2023-01-01 06:05] LABS: Bilirubin, Total 0.6 mg/dL (0.2-1.0); Total Protein 6.3 g/dL (5.7-8.2)
[2023-01-01] MEDS: BUDESONIDE (INHALATION) 0.5 MG/2 ML NEB NEB SCH ×2 (06:28→21:51)
[2023-01-01 07:57] LABS: Base Excess 0.1 mmol/L (-2.0-2.0)
[2023-01-01] MEDS: amLODIPine BESYLATE 5 MG TAB PO SCH (10:00)
[2023-01-01] MEDS: PANTOPRAZOLE 40 MG/10 ML VIAL INJ IV SCH ×2 (10:21→22:48)
[2023-01-01] MEDS: dilTIAZem HCL 180MG ER CAP PO SCH (10:22)
[2023-01-01] MEDS: CYANOCOBALAMIN 500 MCG TAB PO SCH (10:22)
[2023-01-01] MEDS: FUROSEMIDE 20 MG TAB PO SCH (10:23)
[2023-01-01] MEDS: FERROUS SULFATE 325mg EC TAB PO SCH ×2 (10:24→17:36)
[2023-01-01 15:35] LABS: Base Excess 5.5 mmol/L (-2.0-2.0)
[2023-01-01] MEDS: ACETAMINOPHEN 325 MG TAB PO PRN (17:20)
[2023-01-01] MEDS: ATORVASTATIN 20 MG TAB PO SCH (22:48)
[2023-01-02] VITALS (32 sets, daily range): BP systolic 81–149; BP diastolic 40–82; PULSE 70–161; RESP 12–29; TEMP 97.1–98.6; O2SAT 82–100
[2023-01-02 05:51] LABS: Basophils # (auto) 0 10 ^3/uL (0-0.2); Eosinophils # (auto) 0.1 10 ^3/uL (0-0.8); Hemoglobin 10.6 g/dL (12.2-16.2); Lymphocytes # (auto) 1.4 10 ^3/uL (0.4-5.4); Monocytes # (auto) 0.9 10 ^3/uL (0-1.3); Neutrophils # (auto) 4.8 10 ^3/uL (1.6-8.6)
[2023-01-02 05:53] LABS: Basophils % (auto) 0.6 % (0.0-2.0); Eosinophils % (auto) 1.2 % (0.0-7.0); Hematocrit 32.6 % (36.0-46.0); Lymphocytes % (auto) 19.5 % (10.0-50.0); Mean Corpuscular Hemoglobin 25.5 pg (28.0-32.0); Mean Corpuscular Hgb Conc. 32.4 g/dL (32.0-36.0); Mean Corpuscular Volume 78.6 fL (80.0-100.0); Monocytes % (auto) 12.8 % (0.0-12.0); Neutrophils % (auto) 65.9 % (37.0-80.0); Red Blood Cells 4.14 10^6/uL (4.0-5.20); Red Cell Distribution Width 17.7 % (11.8-14.3); White Blood Cell 7.3 10^3/uL (4.4-10.8)
[2023-01-02 06:00] LABS: Alanine Aminotransferase 17 U/L (7-40); Albumin 4.3 g/dL (3.2-4.8); Alkaline Phosphatase 103 U/L (46-116); Anion Gap 4.3 (5-15); Aspartate Aminotransferase < 8 U/L (13-40); BUN/Creatinine Ratio 26.4 (10.0-20.0); Blood Urea Nitrogen 37 mg/dL (9-23); Calcium 10.4 mg/dL (8.7-10.4); Carbon Dioxide 33.7 mmol/L (20-30); Chloride 98 mmol/L (98-107); Glucose 99 mg/dL (74-106); Potassium 3.9 mmol/L (3.5-5.1); Sodium 136 mmol/L (136-145)
[2023-01-02 06:01] LABS: Bilirubin, Total 0.8 mg/dL (0.2-1.0); Total Protein 6.5 g/dL (5.7-8.2)
[2023-01-02] MEDS: FERROUS SULFATE 325mg EC TAB PO SCH ×2 (08:00→18:00)
[2023-01-02 09:20] LABS: Base Excess 4.3 mmol/L (-2.0-2.0)
[2023-01-02] MEDS: BUDESONIDE (INHALATION) 0.5 MG/2 ML NEB NEB SCH ×2 (09:39→22:32)
[2023-01-02] MEDS: amLODIPine BESYLATE 5 MG TAB PO SCH (10:00)
[2023-01-02] MEDS: CYANOCOBALAMIN 500 MCG TAB PO SCH (10:00)
[2023-01-02] MEDS: PANTOPRAZOLE 40 MG/10 ML VIAL INJ IV SCH ×2 (10:12→21:03)
[2023-01-02] MEDS: dilTIAZem HCL 180MG ER CAP PO SCH (10:13)
[2023-01-02] MEDS: FUROSEMIDE 20 MG TAB PO SCH (10:13)
[2023-01-02 11:34] LABS: Amphetamine Screen, Urine Neg (NEGATIVE)
[2023-01-02 11:35] LABS: Barbiturate Scree,Urine Neg (NEGATIVE); Benzodiazephine Screen, Urine Neg (NEGATIVE); Cocaine Screen, Urine Neg (NEGATIVE); Opiate Scree,Urine Neg (NEGATIVE)
[2023-01-02 11:36] LABS: Cannabinoid Screen, Urine Neg (NEGATIVE); Phencyclidine Screen, Urine Neg (NEGATIVE)
[2023-01-02] MEDS: ACETAMINOPHEN 325 MG TAB PO PRN (12:23)
[2023-01-02] MEDS ORDERED: DIGOXIN (250MCG/ML) 2 ML AMPULE IV ONE (12:45)
[2023-01-02] MEDS ORDERED: DIGOXIN (250MCG/ML) 2 ML AMPULE ONE (13:00)
[2023-01-02] MEDS: DOCUSATE SOD 100 MG CAP PO PRN (16:03)
[2023-01-02] MEDS: AMIODARONE 450mg/250ml AE 250 ML IV SCH ×2 (17:42→19:45)
[2023-01-02] MEDS: ATORVASTATIN 20 MG TAB PO SCH (20:59)
[2023-01-03] VITALS (23 sets, daily range): BP systolic 108–149; BP diastolic 36–70; PULSE 68–126; RESP 12–22; TEMP 98–98.6; O2SAT 92–100
[2023-01-03 06:04] LABS: Basophils # (auto) 0 10 ^3/uL (0-0.2); Basophils % (auto) 0.5 % (0.0-2.0); Mean Corpuscular Volume 78.4 fL (80.0-100.0); White Blood Cell 7.3 10^3/uL (4.4-10.8)
[2023-01-03 06:06] LABS: Eosinophils # (auto) 0.2 10 ^3/uL (0-0.8); Eosinophils % (auto) 2.4 % (0.0-7.0); Hematocrit 32.8 % (36.0-46.0); Hemoglobin 10.7 g/dL (12.2-16.2); Lymphocytes # (auto) 1.9 10 ^3/uL (0.4-5.4); Lymphocytes % (auto) 25.5 % (10.0-50.0); Mean Corpuscular Hemoglobin 25.5 pg (28.0-32.0); Mean Corpuscular Hgb Conc. 32.5 g/dL (32.0-36.0); Monocytes # (auto) 0.9 10 ^3/uL (0-1.3); Monocytes % (auto) 12.1 % (0.0-12.0); Neutrophils # (auto) 4.3 10 ^3/uL (1.6-8.6); Neutrophils % (auto) 59.5 % (37.0-80.0); Red Blood Cells 4.18 10^6/uL (4.0-5.20); Red Cell Distribution Width 17.9 % (11.8-14.3)
[2023-01-03] MEDS: BUDESONIDE (INHALATION) 0.5 MG/2 ML NEB NEB SCH ×2 (06:09→19:23)
[2023-01-03 06:18] LABS: Alanine Aminotransferase 12 U/L (7-40); Albumin 3.9 g/dL (3.2-4.8); Alkaline Phosphatase 93 U/L (46-116); Anion Gap 5.2 (5-15); Aspartate Aminotransferase < 8 U/L (13-40); Carbon Dioxide 32.8 mmol/L (20-30); Chloride 97 mmol/L (98-107); Glucose 101 mg/dL (74-106); Magnesium 2.4 mg/dL (1.6-2.6); Potassium 3.8 mmol/L (3.5-5.1); Sodium 135 mmol/L (136-145)
[2023-01-03 06:19] LABS: Bilirubin, Total 0.8 mg/dL (0.2-1.0); Total Protein 6.1 g/dL (5.7-8.2)
[2023-01-03 07:44] LABS: BUN/Creatinine Ratio 25.3 (10.0-20.0); Blood Urea Nitrogen 39 mg/dL (9-23)
[2023-01-03] MEDS: dilTIAZem HCL 180MG ER CAP PO SCH (08:34)
[2023-01-03] MEDS: CYANOCOBALAMIN 500 MCG TAB PO SCH (08:34)
[2023-01-03] MEDS: FUROSEMIDE 20 MG TAB PO SCH (08:34)
[2023-01-03] MEDS: FERROUS SULFATE 325mg EC TAB PO SCH ×2 (08:35→17:01)
[2023-01-03] MEDS: amLODIPine BESYLATE 5 MG TAB PO SCH (08:35)
[2023-01-03] MEDS: PANTOPRAZOLE 40 MG/10 ML VIAL INJ IV SCH ×2 (08:35→21:24)
[2023-01-03] MEDS: AMIODARONE 450mg/250ml AE 250 ML IV SCH (10:19)
[2023-01-03] MEDS ORDERED: HYALURONIDASE 150 UNIT/1 ML SUBCUT ONE ×2 (14:15→14:30)
[2023-01-03] MEDS: ACETAMINOPHEN 325 MG TAB PO PRN (16:10)
[2023-01-03] MEDS: ATORVASTATIN 20 MG TAB PO SCH (21:23)
[2023-01-03] MEDS: AMIODARONE HCL 200 MG TAB PO SCH (21:24)
[2023-01-04] VITALS (12 sets, daily range): BP systolic 95–133; BP diastolic 51–84; PULSE 52–121; RESP 16–20; TEMP 97.8–98.6; O2SAT 90–100
[2023-01-04] MEDS ORDERED: dilTIAZem 25 MG/5 ML VIAL IV ONE (01:00)
[2023-01-04 06:57] LABS: Basophils # (auto) 0 10 ^3/uL (0-0.2); Red Cell Distribution Width 18.2 % (11.8-14.3); White Blood Cell 8.2 10^3/uL (4.4-10.8)
[2023-01-04 07:03] LABS: Basophils % (auto) 0.5 % (0.0-2.0); Eosinophils # (auto) 0.2 10 ^3/uL (0-0.8); Eosinophils % (auto) 2.5 % (0.0-7.0); Hematocrit 34.9 % (36.0-46.0); Hemoglobin 11.1 g/dL (12.2-16.2); Lymphocytes # (auto) 1.6 10 ^3/uL (0.4-5.4); Lymphocytes % (auto) 19.8 % (10.0-50.0); Mean Corpuscular Hemoglobin 25.5 pg (28.0-32.0); Mean Corpuscular Hgb Conc. 31.9 g/dL (32.0-36.0); Mean Corpuscular Volume 79.9 fL (80.0-100.0); Monocytes % (auto) 11.9 % (0.0-12.0); Neutrophils # (auto) 5.3 10 ^3/uL (1.6-8.6); Neutrophils % (auto) 65.3 % (37.0-80.0); Nucleated Red Blood Cells % 0.1 %; Red Blood Cells 4.36 10^6/uL (4.0-5.20)
[2023-01-04 07:11] LABS: Alanine Aminotransferase 14 U/L (7-40); Albumin 3.9 g/dL (3.2-4.8); Alkaline Phosphatase 98 U/L (46-116); Anion Gap 5.1 (5-15); Aspartate Aminotransferase 11 U/L (13-40); BUN/Creatinine Ratio 20.9 (10.0-20.0); Blood Urea Nitrogen 33 mg/dL (9-23); Calcium 10.1 mg/dL (8.7-10.4); Carbon Dioxide 29.9 mmol/L (20-30); Chloride 97 mmol/L (98-107); Glucose 100 mg/dL (74-106); Potassium 3.8 mmol/L (3.5-5.1); Sodium 132 mmol/L (136-145)
[2023-01-04 07:12] LABS: Bilirubin, Total 0.8 mg/dL (0.2-1.0); Total Protein 6.2 g/dL (5.7-8.2)
[2023-01-04] MEDS: AMIODARONE HCL 200 MG TAB PO SCH ×2 (09:32→22:12)
[2023-01-04] MEDS: PANTOPRAZOLE 40 MG/10 ML VIAL INJ IV SCH ×2 (09:32→22:12)
[2023-01-04] MEDS: CYANOCOBALAMIN 500 MCG TAB PO SCH (09:32)
[2023-01-04] MEDS: FUROSEMIDE 20 MG TAB PO SCH (09:33)
[2023-01-04] MEDS: FERROUS SULFATE 325mg EC TAB PO SCH ×2 (09:33→17:45)
[2023-01-04] MEDS: amLODIPine BESYLATE 5 MG TAB PO SCH (09:33)
[2023-01-04] MEDS: BUDESONIDE (INHALATION) 0.5 MG/2 ML NEB NEB SCH ×2 (10:08→18:51)
[2023-01-04] MEDS: DOCUSATE SOD 100 MG CAP PO PRN (17:45)
[2023-01-04] MEDS: ATORVASTATIN 20 MG TAB PO SCH (22:12)
[2023-01-05 05:00] VITALS: BP 130/50; PULSE 82; RESP 20; TEMP 97.9; O2SAT 100
[2023-01-05 06:23] LABS: Basophils # (auto) 0 10 ^3/uL (0-0.2); Eosinophils # (auto) 0.2 10 ^3/uL (0-0.8); Eosinophils % (auto) 2.7 % (0.0-7.0); Mean Corpuscular Hemoglobin 25.6 pg (28.0-32.0); Neutrophils # (auto) 4.8 10 ^3/uL (1.6-8.6); Nucleated Red Blood Cells % 0.1 %; White Blood Cell 7.5 10^3/uL (4.4-10.8)
[2023-01-05 06:25] LABS: Basophils % (auto) 0.3 % (0.0-2.0); Hematocrit 32.4 % (36.0-46.0); Hemoglobin 10.4 g/dL (12.2-16.2); Lymphocytes # (auto) 1.5 10 ^3/uL (0.4-5.4); Lymphocytes % (auto) 19.5 % (10.0-50.0); Mean Corpuscular Hgb Conc. 32.1 g/dL (32.0-36.0); Mean Corpuscular Volume 79.6 fL (80.0-100.0); Monocytes % (auto) 12.8 % (0.0-12.0); Neutrophils % (auto) 64.7 % (37.0-80.0); Red Blood Cells 4.07 10^6/uL (4.0-5.20); Red Cell Distribution Width 18.4 % (11.8-14.3)
[2023-01-05 06:37] LABS: Anion Gap 3.9 (5-15); Carbon Dioxide 32.1 mmol/L (20-30); Chloride 97 mmol/L (98-107); Potassium 3.8 mmol/L (3.5-5.1); Sodium 133 mmol/L (136-145)
[2023-01-05 06:43] LABS: BUN/Creatinine Ratio 21.9 (10.0-20.0); Blood Urea Nitrogen 39 mg/dL (9-23); Glucose 106 mg/dL (74-106)
[2023-01-05 06:44] LABS: Magnesium 2.2 mg/dL (1.6-2.6)
[2023-01-05] MEDS ORDERED: POTASSIUM EFFERVESENT TAB 25 MEQ PO ONE (07:00)
[2023-01-05] MEDS: FERROUS SULFATE 325mg EC TAB PO SCH (07:59)
[2023-01-05 08:00] VITALS: BP 127/64; PULSE 73; PULSE 78; RESP 20; TEMP 98; O2SAT 100; O2SAT 98
[2023-01-05] MEDS: amLODIPine BESYLATE 5 MG TAB PO SCH (08:00)
[2023-01-05] MEDS: PANTOPRAZOLE 40 MG/10 ML VIAL INJ IV SCH (08:01)
[2023-01-05] MEDS: AMIODARONE HCL 200 MG TAB PO SCH (08:01)
[2023-01-05] MEDS: CYANOCOBALAMIN 500 MCG TAB PO SCH (08:01)
[2023-01-05 09:12] VITALS: PULSE 80; RESP 18; O2SAT 100
[2023-01-05] MEDS: BUDESONIDE (INHALATION) 0.5 MG/2 ML NEB NEB SCH (09:12)
[2023-01-05] MEDS ORDERED: AMIO100T3 OR (09:16)
[2023-01-05 09:18] VITALS: PULSE 72; RESP 18; O2SAT 100
[2023-01-05] MEDS: SODIUM CHLORIDE 0.9% 250 ML IV SCH ×3 (09:45→16:25)
[2023-01-05 12:00] VITALS: BP 100/63; PULSE 76; RESP 18; TEMP 97.9; O2SAT 99
[2023-01-05 16:00] VITALS: BP 122/54; PULSE 79; RESP 18; TEMP 98.6; O2SAT 93
== END 2023-01-05 17:00 | disposition home health service (06) | DRG 380 ==
LOC: ER 10:40 → EDBD 11:57 → TELE 11:57 → TELE-EAST 21:25 → DOU IN ICU 12-31 12:42 → TELE-CENTR 01-03 16:41
PROVIDERS: ADMIT Internal Medicine; ATTEND Student in an Organized Health Care Education/Training Program
PROC: 30233N1 Transfusion of Nonautologous Red Blood Cells into Peripheral Vein, Percutaneous Approach (ICD-10-PCS; principal; 2022-12-26)
PROC: 0DB98ZX Excision of Duodenum, Via Natural or Artificial Opening Endoscopic, Diagnostic (ICD-10-PCS; 2022-12-28)
PROC: 0DB68ZX Excision of Stomach, Via Natural or Artificial Opening Endoscopic, Diagnostic (ICD-10-PCS; 2022-12-28)
PROC: 0DB48ZX Excision of Esophagogastric Junction, Via Natural or Artificial Opening Endoscopic, Diagnostic (ICD-10-PCS; 2022-12-28)
PROC: 5A09357 Assistance with Respiratory Ventilation, Less than 24 Consecutive Hours, Continuous Positive Airway Pressure (ICD-10-PCS; 2022-12-31)
PROC: 05HY33Z Insertion of Infusion Device into Upper Vein, Percutaneous Approach (ICD-10-PCS; 2022-12-31)
PROC: B54NZZA Ultrasonography of Left Upper Extremity Veins, Guidance (ICD-10-PCS; 2022-12-31)
PROC: 5A09357 Assistance with Respiratory Ventilation, Less than 24 Consecutive Hours, Continuous Positive Airway Pressure (ICD-10-PCS; 2023-01-01)
PROC: 5A09357 Assistance with Respiratory Ventilation, Less than 24 Consecutive Hours, Continuous Positive Airway Pressure (ICD-10-PCS; 2023-01-02)
PROC: 05H933Z Insertion of Infusion Device into Right Brachial Vein, Percutaneous Approach (ICD-10-PCS; 2023-01-03)
PROC: B54MZZA Ultrasonography of Right Upper Extremity Veins, Guidance (ICD-10-PCS; 2023-01-03)
DX: K22.11 Ulcer of esophagus with bleeding (principal); G93.41 Metabolic encephalopathy; N17.0 Acute kidney failure with tubular necrosis; I13.0 Hypertensive heart and chronic kidney disease with heart failure and stage 1 through stage 4 chronic kidney disease, or unspecified chronic kidney disease; K44.9 Diaphragmatic hernia without obstruction or gangrene; K80.20 Calculus of gallbladder without cholecystitis without obstruction; Z66 Do not resuscitate; D64.9 Anemia, unspecified; I48.0 Paroxysmal atrial fibrillation; Z20.822 Contact with and (suspected) exposure to COVID-19; N18.9 Chronic kidney disease, unspecified; E87.5 Hyperkalemia; K21.9 Gastro-esophageal reflux disease without esophagitis; J44.9 Chronic obstructive pulmonary disease, unspecified; R73.03 Prediabetes; F32.A Depression, unspecified; G89.29 Other chronic pain; I25.10 Atherosclerotic heart disease of native coronary artery without angina pectoris; I50.9 Heart failure, unspecified; Z88.8 Allergy status to other drugs, medicaments and biological substances; Z90.710 Acquired absence of both cervix and uterus; Z90.5 Acquired absence of kidney; Z85.528 Personal history of other malignant neoplasm of kidney
CPT/HCPCS: 36415; 36600; 70450; 71045; 74176; 80048; 80053; 80307; 81001; 82105; 82270; 82306; 82378; 82607; 82728; 82746; 82805; 82962; 83036; 83540; 83550; 83605; 83615; 83735; 84443; 84484; 85025; 85045; 85610; 85730; 86301; 86304; 86850; 86900; 86901; 86920; 87081; 87426; 93005; 93306; 94640; 94660; 97110; 97116; 97163; 97530; 99291; C9113; G0378; J1815; J2250; J2405; J2704; J3470

== ENCOUNTER → 2023-02-20 | Outpatient (CLI) | payer MEDICARE, OTHER ==
[~2023-02-20] MED LIST changes: +AMIO100T3 OR; -APIX2.5T PO; +FUR20T PO; +PANT40T PO; +PANT40TA2 PO; +SUCR1SUS26 PO
[2023-02-20 13:07] LABS: Basophils # (auto) 0 10 ^3/uL (0-0.2); Basophils % (auto) 0.3 % (0.0-2.0); Eosinophils # (auto) 0.2 10 ^3/uL (0-0.8); Eosinophils % (auto) 2.4 % (0.0-7.0); Hematocrit 27.3 % (36.0-46.0); Hemoglobin 8.8 g/dL (12.2-16.2); Lymphocytes # (auto) 1.7 10 ^3/uL (0.4-5.4); Lymphocytes % (auto) 21.6 % (10.0-50.0); Mean Corpuscular Hemoglobin 27.1 pg (28.0-32.0); Mean Corpuscular Hgb Conc. 32.3 g/dL (32.0-36.0); Mean Corpuscular Volume 83.8 fL (80.0-100.0); Monocytes # (auto) 0.8 10 ^3/uL (0-1.3); Monocytes % (auto) 9.5 % (0.0-12.0); Neutrophils # (auto) 5.3 10 ^3/uL (1.6-8.6); Neutrophils % (auto) 66.2 % (37.0-80.0); Nucleated Red Blood Cells % 0.1 %; Red Blood Cells 3.26 10^6/uL (4.0-5.20)
[2023-02-20 13:29] LABS: Red Cell Distribution Width 21.1 % (11.8-14.3)
[2023-02-20 13:46] LABS: Alanine Aminotransferase 23 U/L (7-40); Albumin 4.1 g/dL (3.2-4.8); Alkaline Phosphatase 129 U/L (46-116); Anion Gap 4 (5-15); Aspartate Aminotransferase 19 U/L (13-40); BUN/Creatinine Ratio 17.6 (10.0-20.0); Bilirubin, Total 0.5 mg/dL (0.2-1.0); Blood Urea Nitrogen 34 mg/dL (9-23); Calcium 10.1 mg/dL (8.5-10.1); Carbon Dioxide 28 mmol/L (20-30); Chloride 104 mmol/L (98-107); Glucose 102 mg/dL (74-106); Potassium 4.5 mmol/L (3.5-5.1); Sodium 136 mmol/L (136-145); Total Protein 6.4 g/dL (5.7-8.2)
[2023-02-20 13:47] LABS: % Iron Saturation 5.2 % (15-50)
== END | disposition home or self-care (01) ==
LOC: LAB 12:49
PROVIDERS: ATTEND Internal Medicine
DX: I48.0 Paroxysmal atrial fibrillation (principal); D64.9 Anemia, unspecified
CPT/HCPCS: 36415; 80053; 83540; 83550; 85025

== ENCOUNTER → 2023-03-13 | Outpatient (CLI) | payer MEDICARE, OTHER ==
[2023-03-13 10:12] LABS: Basophils # (auto) 0 10 ^3/uL (0-0.2); Basophils % (auto) 0.6 % (0.0-2.0); Eosinophils # (auto) 0.3 10 ^3/uL (0-0.8); Eosinophils % (auto) 4.4 % (0.0-7.0); Hematocrit 28.8 % (36.0-46.0); Lymphocytes # (auto) 1.9 10 ^3/uL (0.4-5.4); Lymphocytes % (auto) 29.5 % (10.0-50.0); Mean Corpuscular Hemoglobin 27.1 pg (28.0-32.0); Mean Corpuscular Hgb Conc. 31.4 g/dL (32.0-36.0); Mean Corpuscular Volume 86.3 fL (80.0-100.0); Monocytes # (auto) 0.6 10 ^3/uL (0-1.3); Monocytes % (auto) 9.6 % (0.0-12.0); Neutrophils # (auto) 3.6 10 ^3/uL (1.6-8.6); Neutrophils % (auto) 55.9 % (37.0-80.0); Red Blood Cells 3.34 10^6/uL (4.0-5.20); White Blood Cell 6.4 10^3/uL (4.4-10.8)
[2023-03-13 10:18] LABS: Red Cell Distribution Width 20.2 % (11.8-14.3)
[2023-03-13 11:32] LABS: Anion Gap 5 (5-15); Calcium 10.1 mg/dL (8.5-10.1); Carbon Dioxide 27 mmol/L (20-30); Chloride 106 mmol/L (98-107); Potassium 5.2 mmol/L (3.5-5.1); Sodium 138 mmol/L (136-145)
[2023-03-13 11:38] LABS: BUN/Creatinine Ratio 10.5 (10.0-20.0); Blood Urea Nitrogen 18 mg/dL (9-23); Glucose 99 mg/dL (74-106)
[2023-03-13 13:22] LABS: Platelet Estimate Adequate
[2023-03-13 13:23] LABS: Anisocytosis Slight
== END | disposition home or self-care (01) ==
LOC: LAB 09:55
PROVIDERS: ATTEND Internal Medicine
DX: I10 Essential (primary) hypertension (principal); D64.9 Anemia, unspecified
CPT/HCPCS: 36415; 80048; 85025

== ENCOUNTER → 2023-04-06 | Outpatient (CLI) | payer MEDICARE, OTHER ==
[2023-04-06 12:18] LABS: Basophils # (auto) 0 10 ^3/uL (0-0.2); Eosinophils # (auto) 0.2 10 ^3/uL (0-0.8); Mean Corpuscular Volume 91.8 fL (80.0-100.0); Monocytes # (auto) 0.6 10 ^3/uL (0-1.3); Neutrophils # (auto) 3.3 10 ^3/uL (1.6-8.6)
[2023-04-06 12:38] LABS: Basophils % (auto) 0.3 % (0.0-2.0); Eosinophils % (auto) 3.9 % (0.0-7.0); Hematocrit 22.2 % (36.0-46.0); Lymphocytes # (auto) 1.5 10 ^3/uL (0.4-5.4); Lymphocytes % (auto) 26.1 % (10.0-50.0); Mean Corpuscular Hgb Conc. 31.6 g/dL (32.0-36.0); Monocytes % (auto) 10.7 % (0.0-12.0); Red Blood Cells 2.42 10^6/uL (4.0-5.20); Red Cell Distribution Width 18.3 % (11.8-14.3); White Blood Cell 5.6 10^3/uL (4.4-10.8)
[2023-04-06 13:11] LABS: Urine Bacteria FEW /hpf (None Seen); Urine Blood Negative /uL (Negative); Urine Clarity Clear (Clear); Urine Color Yellow (Yellow); Urine Protein, UAD TRACE (Negative); Urine Specific Gravity 1.019 (1.001-1.035); Urine Urobilinogen Normal (Negative); Urine WBC 20 /hpf (0 - 5)
[2023-04-06 13:25] LABS: Protein, Urine 36.1 mg/dL (0.0-11.9)
[2023-04-06 13:28] LABS: Creatinine, Urine 96.21 mg/dL (30.0-125.0); Urine Protein/Creatinine Ratio 0.38
[2023-04-06 13:33] LABS: Alanine Aminotransferase 18 U/L (7-40); Albumin 3.9 g/dL (3.2-4.8); Alkaline Phosphatase 97 U/L (46-116); Anion Gap 5 (5-15); Aspartate Aminotransferase 15 U/L (13-40); BUN/Creatinine Ratio 12.9 (10.0-20.0); Bilirubin, Total 0.3 mg/dL (0.2-1.0); Blood Urea Nitrogen 23 mg/dL (9-23); Calcium 9.5 mg/dL (8.5-10.1); Carbon Dioxide 27 mmol/L (20-30); Chloride 106 mmol/L (98-107); Glucose 107 mg/dL (74-106); Phosphorus 3.5 mg/dL (2.4-5.1); Potassium 4.5 mmol/L (3.5-5.1); Sodium 138 mmol/L (136-145); Total Protein 5.8 g/dL (5.7-8.2)
== END | disposition home or self-care (01) ==
LOC: LAB 12:00
PROVIDERS: ATTEND Student in an Organized Health Care Education/Training Program
DX: R82.90 Unspecified abnormal findings in urine (principal); E83.39 Other disorders of phosphorus metabolism; N18.31 Chronic kidney disease, stage 3a; D63.1 Anemia in chronic kidney disease
CPT/HCPCS: 36415; 80053; 81001; 82570; 83970; 84100; 84156; 85025

== ENCOUNTER 2023-04-12 11:59 | Inpatient (IN) | payer MEDICARE, OTHER ==
[~2023-04-12] VITALS: Ht 162.6 cm; Wt 65.0 kg
[2023-04-12 13:04] LABS: Basophils # (auto) 0 10 ^3/uL (0-0.2); Basophils % (auto) 0.5 % (0.0-2.0); Eosinophils # (auto) 0.2 10 ^3/uL (0-0.8); Lymphocytes # (auto) 1.6 10 ^3/uL (0.4-5.4); Mean Corpuscular Hemoglobin 28.2 pg (28.0-32.0); Neutrophils # (auto) 2.5 10 ^3/uL (1.6-8.6); Nucleated Red Blood Cells % 0.1 %
[2023-04-12 13:07] LABS: Eosinophils % (auto) 3.9 % (0.0-7.0); Hematocrit 22.8 % (36.0-46.0); Hemoglobin 7.2 g/dL (12.2-16.2); Lymphocytes % (auto) 33.3 % (10.0-50.0); Mean Corpuscular Hgb Conc. 31.3 g/dL (32.0-36.0); Mean Corpuscular Volume 90.1 fL (80.0-100.0); Monocytes # (auto) 0.6 10 ^3/uL (0-1.3); Monocytes % (auto) 11.6 % (0.0-12.0); Neutrophils % (auto) 50.7 % (37.0-80.0); Red Blood Cells 2.54 10^6/uL (4.0-5.20); Red Cell Distribution Width 16.2 % (11.8-14.3); White Blood Cell 4.9 10^3/uL (4.4-10.8)
[2023-04-12 13:20] LABS: Alanine Aminotransferase 16 U/L (7-40); Albumin 4.1 g/dL (3.2-4.8); Alkaline Phosphatase 98 U/L (46-116); Anion Gap 5 (5-15); Aspartate Aminotransferase 20 U/L (13-40); Bilirubin, Total 0.4 mg/dL (0.2-1.0); Blood Urea Nitrogen 19 mg/dL (9-23); Calcium 9.7 mg/dL (8.7-10.4); Carbon Dioxide 26 mmol/L (20-30); Chloride 107 mmol/L (98-107); Glucose 98 mg/dL (74-106); Potassium 4.5 mmol/L (3.5-5.1); Sodium 138 mmol/L (136-145); Total Protein 6.1 g/dL (5.7-8.2)
[2023-04-12] MEDS ORDERED: MORPHINE SULFATE INJ 2 MG/ml SYRG IV PRN (18:30)
[2023-04-12] MEDS ORDERED: NITROGLYCERIN 0.4 MG SL TAB SL PRN (18:30)
[2023-04-12] MEDS ORDERED: SODIUM CHLORIDE 0.9% 1,000 ML IV ONE (18:30)
[2023-04-12] MEDS: PANTOPRAZOLE 40 MG TAB PO SCH (22:38)
[2023-04-12] MEDS: GABAPENTIN 100 MG CAP PO SCH (22:38)
[2023-04-12] MEDS: SUCRALFATE 1 GM/10 ML ORAL SUSP PO SCH (22:38)
[2023-04-12] MEDS: ATORVASTATIN 20 MG TAB PO SCH (22:39)
[2023-04-13] VITALS (11 sets, daily range): BP systolic 116–168; BP diastolic 43–69; PULSE 71–84; RESP 18–20; TEMP 97.8–98.6; O2SAT 94–99
[2023-04-13] MEDS ORDERED: AMIO200T33 PO (02:54)
[2023-04-13] MEDS: GABAPENTIN 100 MG CAP PO SCH ×4 (06:33→22:18)
[2023-04-13] MEDS: SUCRALFATE 1 GM/10 ML ORAL SUSP PO SCH ×4 (06:33→22:17)
[2023-04-13 07:29] LABS: Basophils # (auto) 0 10 ^3/uL (0-0.2); Eosinophils # (auto) 0.2 10 ^3/uL (0-0.8); Lymphocytes # (auto) 1.3 10 ^3/uL (0.4-5.4); Monocytes # (auto) 0.5 10 ^3/uL (0-1.3); Neutrophils % (auto) 59.5 % (37.0-80.0); White Blood Cell 5.1 10^3/uL (4.4-10.8)
[2023-04-13 07:31] LABS: Basophils % (auto) 0.3 % (0.0-2.0); Eosinophils % (auto) 4.5 % (0.0-7.0); Hematocrit 22.2 % (36.0-46.0); Lymphocytes % (auto) 25.5 % (10.0-50.0); Mean Corpuscular Hemoglobin 28.3 pg (28.0-32.0); Mean Corpuscular Hgb Conc. 30.9 g/dL (32.0-36.0); Mean Corpuscular Volume 91.4 fL (80.0-100.0); Monocytes % (auto) 10.2 % (0.0-12.0); Red Blood Cells 2.43 10^6/uL (4.0-5.20)
[2023-04-13 07:39] LABS: Hemoglobin 6.9 g/dL (12.2-16.2)
[2023-04-13 07:54] LABS: Chloride 110 mmol/L (98-107); Potassium 4.1 mmol/L (3.5-5.1); Sodium 139 mmol/L (136-145)
[2023-04-13 07:55] LABS: Anion Gap 6 (5-15); Carbon Dioxide 23 mmol/L (20-30)
[2023-04-13 07:56] LABS: Calcium 9.7 mg/dL (8.5-10.1)
[2023-04-13 08:00] LABS: BUN/Creatinine Ratio 11.5 (10.0-20.0); Blood Urea Nitrogen 18 mg/dL (9-23); Glucose 91 mg/dL (74-106)
[2023-04-13] MEDS: Escitalopram Oxalate 20MG PO SCH (10:00)
[2023-04-13] MEDS: AMIODARONE HCL 200 MG TAB PO SCH (10:16)
[2023-04-13] MEDS: dilTIAZem HCL 180MG ER CAP PO SCH (10:17)
[2023-04-13] MEDS: PANTOPRAZOLE 40 MG TAB PO SCH ×2 (10:17→22:17)
[2023-04-13] MEDS: ATORVASTATIN 20 MG TAB PO SCH (22:17)
[2023-04-14 05:00] VITALS: BP 148/59; PULSE 72; RESP 19; TEMP 97.7; O2SAT 96
[2023-04-14] MEDS: GABAPENTIN 100 MG CAP PO SCH ×4 (06:18→21:54)
[2023-04-14] MEDS: SUCRALFATE 1 GM/10 ML ORAL SUSP PO SCH ×4 (06:18→21:54)
[2023-04-14 06:40] LABS: Basophils # (auto) 0 10 ^3/uL (0-0.2); Basophils % (auto) 0.2 % (0.0-2.0); Eosinophils # (auto) 0.3 10 ^3/uL (0-0.8); Eosinophils % (auto) 4.1 % (0.0-7.0); Hematocrit 29.9 % (36.0-46.0); Hemoglobin 9.5 g/dL (12.2-16.2); Lymphocytes # (auto) 1.9 10 ^3/uL (0.4-5.4); Lymphocytes % (auto) 28.7 % (10.0-50.0); Mean Corpuscular Hemoglobin 28.5 pg (28.0-32.0); Mean Corpuscular Hgb Conc. 31.7 g/dL (32.0-36.0); Mean Corpuscular Volume 89.9 fL (80.0-100.0); Monocytes # (auto) 0.7 10 ^3/uL (0-1.3); Neutrophils # (auto) 3.8 10 ^3/uL (1.6-8.6); Red Blood Cells 3.33 10^6/uL (4.0-5.20); Red Cell Distribution Width 15.3 % (11.8-14.3); White Blood Cell 6.7 10^3/uL (4.4-10.8)
[2023-04-14 06:53] LABS: % Iron Saturation 3.9 % (15-50)
[2023-04-14 06:56] LABS: Alanine Aminotransferase 15 U/L (7-40); Alkaline Phosphatase 97 U/L (46-116); Anion Gap 6 (5-15); BUN/Creatinine Ratio 11.4 (10.0-20.0); Blood Urea Nitrogen 18 mg/dL (9-23); Calcium 9.6 mg/dL (8.7-10.4); Carbon Dioxide 25 mmol/L (20-30); Chloride 108 mmol/L (98-107); Folate (Folic Acid) > 24.00 ng/mL (>5.38); Glucose 88 mg/dL (74-106); Potassium 4.3 mmol/L (3.5-5.1); Sodium 139 mmol/L (136-145)
[2023-04-14 06:57] LABS: Albumin 3.8 g/dL (3.2-4.8); Aspartate Aminotransferase 17 U/L (13-40); Bilirubin, Total 0.5 mg/dL (0.2-1.0); Carcinoembryonic Antigen 1.34 ng/mL (<=5.0); Total Protein 5.7 g/dL (5.7-8.2)
[2023-04-14 08:00] VITALS: BP 156/59; PULSE 78; RESP 18; TEMP 98.6; O2SAT 94
[2023-04-14 09:00] VITALS: BP 156/59; PULSE 78; RESP 18; TEMP 98.6; O2SAT 94
[2023-04-14] MEDS ORDERED: NALOXONE HCL 0.4 MG/ML VIAL ONE (09:26)
[2023-04-14] MEDS ORDERED: FLUMAZENIL 0.1 MG/ML INJ 10ML MDV IV ONE (09:26)
[2023-04-14] MEDS: Escitalopram Oxalate 20MG PO SCH (10:00)
[2023-04-14] MEDS: AMIODARONE HCL 200 MG TAB PO SCH (10:21)
[2023-04-14] MEDS: PANTOPRAZOLE 40 MG TAB PO SCH ×2 (10:21→21:54)
[2023-04-14] MEDS: dilTIAZem HCL 180MG ER CAP PO SCH (10:24)
[2023-04-14 13:00] VITALS: BP 158/72; PULSE 75; RESP 18; TEMP 98.2; O2SAT 95
[2023-04-14 16:40] VITALS: BP 154/62; PULSE 74; RESP 18; TEMP 98.2; O2SAT 96
[2023-04-14] MEDS: ATORVASTATIN 20 MG TAB PO SCH (21:54)
[2023-04-14] MEDS: ACETAMINOPHEN 325 MG TAB PO PRN (21:55)
[2023-04-14 22:00] VITALS: BP 158/53; PULSE 84; RESP 17; TEMP 98.5; O2SAT 94
[2023-04-15 05:00] VITALS: BP 149/57; PULSE 77; RESP 18; TEMP 97.6; O2SAT 94
[2023-04-15] MEDS: GABAPENTIN 100 MG CAP PO SCH ×4 (06:15→21:22)
[2023-04-15] MEDS: SUCRALFATE 1 GM/10 ML ORAL SUSP PO SCH ×4 (06:15→21:21)
[2023-04-15 08:00] VITALS: BP 166/64; PULSE 73; RESP 20; TEMP 97.9; O2SAT 94
[2023-04-15] MEDS: dilTIAZem HCL 180MG ER CAP PO SCH (09:46)
[2023-04-15] MEDS: Escitalopram Oxalate 20MG PO SCH (09:47)
[2023-04-15] MEDS: AMIODARONE HCL 200 MG TAB PO SCH (09:47)
[2023-04-15] MEDS: PANTOPRAZOLE 40 MG TAB PO SCH ×2 (09:47→21:21)
[2023-04-15 12:00] VITALS: BP 162/57; PULSE 70; RESP 20; TEMP 98.5; O2SAT 95
[2023-04-15] MEDS: hydrALAZINE HCL 20 MG/ML VL IV PRN ×2 (13:09→17:29)
[2023-04-15] MEDS: ACETAMINOPHEN 325 MG TAB PO PRN (14:47)
[2023-04-15 16:00] VITALS: BP 178/71; PULSE 78; RESP 22; TEMP 97.7; O2SAT 94
[2023-04-15 18:25] VITALS: BP 126/53; PULSE 80
[2023-04-15 20:00] VITALS: RESP 20; O2SAT 94
[2023-04-15] MEDS: ATORVASTATIN 20 MG TAB PO SCH (21:22)
[2023-04-16] VITALS (7 sets, daily range): BP systolic 134–170; BP diastolic 55–68; PULSE 72–83; RESP 16–20; TEMP 97.4–98.5; O2SAT 95–100
[2023-04-16] MEDS: SUCRALFATE 1 GM/10 ML ORAL SUSP PO SCH ×4 (05:05→21:18)
[2023-04-16] MEDS: hydrALAZINE HCL 20 MG/ML VL IV PRN ×2 (05:05→12:49)
[2023-04-16 05:30] LABS: Basophils # (auto) 0 10 ^3/uL (0-0.2); Basophils % (auto) 0.5 % (0.0-2.0); Eosinophils # (auto) 0.2 10 ^3/uL (0-0.8); Eosinophils % (auto) 3.8 % (0.0-7.0); Hematocrit 29.6 % (36.0-46.0); Hemoglobin 9.3 g/dL (12.2-16.2); Lymphocytes # (auto) 1.7 10 ^3/uL (0.4-5.4); Lymphocytes % (auto) 26.5 % (10.0-50.0); Mean Corpuscular Hemoglobin 28.1 pg (28.0-32.0); Mean Corpuscular Hgb Conc. 31.4 g/dL (32.0-36.0); Mean Corpuscular Volume 89.3 fL (80.0-100.0); Monocytes # (auto) 0.8 10 ^3/uL (0-1.3); Monocytes % (auto) 11.7 % (0.0-12.0); Neutrophils # (auto) 3.7 10 ^3/uL (1.6-8.6); Neutrophils % (auto) 57.5 % (37.0-80.0); Red Blood Cells 3.32 10^6/uL (4.0-5.20); Red Cell Distribution Width 15.4 % (11.8-14.3); White Blood Cell 6.4 10^3/uL (4.4-10.8)
[2023-04-16 05:43] LABS: Calcium 10.2 mg/dL (8.5-10.1); Chloride 107 mmol/L (98-107); Potassium 4.4 mmol/L (3.5-5.1)
[2023-04-16 05:49] LABS: BUN/Creatinine Ratio 12.8 (10.0-20.0); Blood Urea Nitrogen 22 mg/dL (9-23); Glucose 92 mg/dL (74-106)
[2023-04-16 05:51] LABS: Carbon Dioxide 24 mmol/L (20-30)
[2023-04-16 06:07] LABS: INR 0.98 (0.9-1.15); Partial Thromboplastin Time 26.5 SEC (24.5-34.5); Prothrombin Time 10.3 sec (9.3-11.8)
[2023-04-16] MEDS: GABAPENTIN 100 MG CAP PO SCH ×4 (06:40→21:19)
[2023-04-16 08:24] LABS: Anion Gap 8 (5-15); Sodium 139 mmol/L (136-145)
[2023-04-16] MEDS: Escitalopram Oxalate 20MG PO SCH (10:00)
[2023-04-16] MEDS ORDERED: GOLYTELY 4L KIT PO ONE (10:00)
[2023-04-16] MEDS: dilTIAZem HCL 180MG ER CAP PO SCH (10:18)
[2023-04-16] MEDS: AMIODARONE HCL 200 MG TAB PO SCH (10:19)
[2023-04-16] MEDS: PANTOPRAZOLE 40 MG TAB PO SCH ×2 (10:19→21:19)
[2023-04-16] MEDS: ACETAMINOPHEN 325 MG TAB PO PRN (12:02)
[2023-04-16 18:39] LABS: Hematocrit 31.1 % (36.0-46.0); Hemoglobin 9.8 g/dL (12.2-16.2)
[2023-04-16] MEDS: ATORVASTATIN 20 MG TAB PO SCH (21:19)
[2023-04-17] VITALS (7 sets, daily range): BP systolic 107–161; BP diastolic 55–81; PULSE 75–88; RESP 16–22; TEMP 97.3–98.5; O2SAT 91–97
[2023-04-17] MEDS: GABAPENTIN 100 MG CAP PO SCH ×4 (04:06→21:33)
[2023-04-17] MEDS: SUCRALFATE 1 GM/10 ML ORAL SUSP PO SCH ×4 (04:06→21:33)
[2023-04-17 06:57] LABS: Hematocrit 28.1 % (36.0-46.0); Hemoglobin 8.9 g/dL (12.2-16.2)
[2023-04-17 07:03] LABS: Anion Gap 8 (5-15); Carbon Dioxide 26 mmol/L (20-30); Chloride 107 mmol/L (98-107); Potassium 4.1 mmol/L (3.5-5.1); Sodium 141 mmol/L (136-145)
[2023-04-17 07:04] LABS: Calcium 9.9 mg/dL (8.5-10.1)
[2023-04-17 07:09] LABS: BUN/Creatinine Ratio 10.9 (10.0-20.0); Blood Urea Nitrogen 16 mg/dL (9-23); Glucose 87 mg/dL (74-106)
[2023-04-17] MEDS ORDERED: MAGNESIUM CITRATE SOLUTION 300 ML BTL PO ONE (08:45)
[2023-04-17] MEDS: PANTOPRAZOLE 40 MG TAB PO SCH ×2 (09:13→21:34)
[2023-04-17] MEDS: dilTIAZem HCL 180MG ER CAP PO SCH (09:14)
[2023-04-17] MEDS: AMIODARONE HCL 200 MG TAB PO SCH (09:15)
[2023-04-17] MEDS: Escitalopram Oxalate 20MG PO SCH (09:15)
[2023-04-17] MEDS ORDERED: LORazepam 0.5 MG TAB PO PRN (12:15)
[2023-04-17] MEDS ORDERED: PROPOFOL 10 MG/ML 20 ML IV ONE (13:43)
[2023-04-17] MEDS ORDERED: ONDANSETRON HCL 4 MG/2 ML VIAL IV PRN (14:45)
[2023-04-17] MEDS ORDERED: OMNIPAQUE 12mg/ml 500ml ORAL SOLUTION PO ONE (14:54)
[2023-04-17] MEDS: ATORVASTATIN 20 MG TAB PO SCH (21:33)
[2023-04-18 05:00] VITALS: BP 154/60; PULSE 77; RESP 16; TEMP 97.4; O2SAT 92
[2023-04-18] MEDS: GABAPENTIN 100 MG CAP PO SCH ×4 (06:05→23:32)
[2023-04-18] MEDS: SUCRALFATE 1 GM/10 ML ORAL SUSP PO SCH ×4 (06:05→23:31)
[2023-04-18 06:57] LABS: Basophils # (auto) 0 10 ^3/uL (0-0.2); Eosinophils # (auto) 0.2 10 ^3/uL (0-0.8); Hemoglobin 9.1 g/dL (12.2-16.2); Neutrophils # (auto) 3.7 10 ^3/uL (1.6-8.6); White Blood Cell 6.1 10^3/uL (4.4-10.8)
[2023-04-18 07:00] LABS: Basophils % (auto) 0.6 % (0.0-2.0); Hematocrit 28.7 % (36.0-46.0); Lymphocytes # (auto) 1.6 10 ^3/uL (0.4-5.4); Lymphocytes % (auto) 26.7 % (10.0-50.0); Mean Corpuscular Hemoglobin 27.9 pg (28.0-32.0); Mean Corpuscular Hgb Conc. 31.5 g/dL (32.0-36.0); Mean Corpuscular Volume 88.4 fL (80.0-100.0); Monocytes # (auto) 0.6 10 ^3/uL (0-1.3); Monocytes % (auto) 9.1 % (0.0-12.0); Neutrophils % (auto) 60.6 % (37.0-80.0); Nucleated Red Blood Cells % 0.1 %; Red Blood Cells 3.25 10^6/uL (4.0-5.20); Red Cell Distribution Width 15.1 % (11.8-14.3)
[2023-04-18 08:00] VITALS: RESP 20
[2023-04-18 08:50] VITALS: BP 163/65; PULSE 74; RESP 18; TEMP 98.1; O2SAT 93
[2023-04-18] MEDS: PANTOPRAZOLE 40 MG TAB PO SCH ×2 (09:03→23:32)
[2023-04-18] MEDS: dilTIAZem HCL 180MG ER CAP PO SCH (09:03)
[2023-04-18] MEDS: AMIODARONE HCL 200 MG TAB PO SCH (09:04)
[2023-04-18] MEDS: Escitalopram Oxalate 20MG PO SCH (09:05)
[2023-04-18] MEDS ORDERED: OMNIPAQUE 12mg/ml 500ml ORAL SOLUTION PO ONE (09:26)
[2023-04-18 12:50] VITALS: BP 165/56; PULSE 78; RESP 18; TEMP 98.4; O2SAT 94
[2023-04-18] MEDS ORDERED: GOLYTELY 4L KIT PO ONE (13:45)
[2023-04-18] MEDS ORDERED: TPN PER PHARMACY 0 ML IV SCH (14:15)
[2023-04-18 16:50] VITALS: BP 121/67; PULSE 83; RESP 18; TEMP 98; O2SAT 93
[2023-04-18 17:58] LABS: Alanine Aminotransferase 19 U/L (7-40); Albumin 4.1 g/dL (3.2-4.8); Alkaline Phosphatase 108 U/L (46-116); Anion Gap 8 (5-15); Aspartate Aminotransferase 18 U/L (13-40); BUN/Creatinine Ratio 7.8 (10.0-20.0); Blood Urea Nitrogen 12 mg/dL (9-23); Calcium 10.3 mg/dL (8.5-10.1); Carbon Dioxide 27 mmol/L (20-30); Chloride 104 mmol/L (98-107); Glucose 88 mg/dL (74-106); Sodium 139 mmol/L (136-145)
[2023-04-18 17:59] LABS: Bilirubin, Total 0.5 mg/dL (0.2-1.0); Phosphorus 2.9 mg/dL (2.4-5.1); Total Protein 6.1 g/dL (5.7-8.2)
[2023-04-18 18:21] LABS: Magnesium 2.6 mg/dL (1.6-2.6)
[2023-04-18] MEDS ORDERED: LIDOCAINE 1% (LOCAL ANESTH.) PF 5ml SDV ID ONE (19:15)
[2023-04-18] MEDS ORDERED: DEXTROSE (50%) 50ML SYRG IV SCH (20:00)
[2023-04-18] MEDS ORDERED: AMINO ACID INFUSION IN D10W 1,000 ML IV NR (20:00)
[2023-04-18 22:00] VITALS: BP 146/71; PULSE 85; RESP 16; TEMP 98.5; O2SAT 94
[2023-04-18] MEDS: ATORVASTATIN 20 MG TAB PO SCH (23:32)
[2023-04-18] MEDS: SODIUM CHLOR 0.9% PF (SALINE LOCK) 10ML VIAL/SYR IV SCH (23:46)
[2023-04-19] VITALS (52 sets, daily range): BP systolic 104–179; BP diastolic 33–75; PULSE 58–86; RESP 14–20; TEMP 96.1–99.7; O2SAT 93–100
[2023-04-19] MEDS: ACCU-CHEK COMFORT CURVE STRIP VI SCH ×4 (04:04→18:11)
[2023-04-19] MEDS: InsuLIN REG 1unit/0.01ml Soln (100units/ml) SC SCH ×4 (06:00→18:16)
[2023-04-19 06:43] LABS: Alanine Aminotransferase 17 U/L (7-40); Albumin 3.7 g/dL (3.2-4.8); Alkaline Phosphatase 98 U/L (46-116); Anion Gap 8 (5-15); Aspartate Aminotransferase 18 U/L (13-40); BUN/Creatinine Ratio 7.4 (10.0-20.0); Bilirubin, Total 0.5 mg/dL (0.2-1.0); Blood Urea Nitrogen 11 mg/dL (9-23); Calcium 9.8 mg/dL (8.5-10.1); Carbon Dioxide 27 mmol/L (20-30); Chloride 106 mmol/L (98-107); Glucose 112 mg/dL (74-106); Phosphorus 2.4 mg/dL (2.4-5.1); Potassium 3.9 mmol/L (3.5-5.1); Sodium 141 mmol/L (136-145); Total Protein 5.6 g/dL (5.7-8.2); Triglycerides 58 mg/dL (< 150)
[2023-04-19 06:53] LABS: Magnesium 2.3 mg/dL (1.6-2.6)
[2023-04-19] MEDS: GABAPENTIN 100 MG CAP PO SCH ×4 (07:15→21:27)
[2023-04-19] MEDS: SUCRALFATE 1 GM/10 ML ORAL SUSP PO SCH ×4 (07:16→21:27)
[2023-04-19] MEDS: PANTOPRAZOLE 40 MG TAB PO SCH ×2 (08:53→21:27)
[2023-04-19] MEDS: AMIODARONE HCL 200 MG TAB PO SCH (08:53)
[2023-04-19] MEDS: dilTIAZem HCL 180MG ER CAP PO SCH (08:53)
[2023-04-19] MEDS: Escitalopram Oxalate 20MG PO SCH (10:00)
[2023-04-19] MEDS ORDERED: POTASSIUM PHOSPHATE 22 MEQ in SODIUM CHL 0.9% 100 ML IV ONE (10:45)
[2023-04-19] MEDS ORDERED: HYDROmorphone HCL 2 MG/ML VL/or syr ONE ×2 (11:33→13:35)
[2023-04-19] MEDS ORDERED: fentaNYL CITRATE 100 MCG/2 ML VL ONE (11:33)
[2023-04-19] MEDS ORDERED: ETOMIDATE (2MG/ML) 20ML VIAL IV ONE (11:33)
[2023-04-19] MEDS ORDERED: SODIUM CHLORIDE LOCK 10 ML ONE (11:33)
[2023-04-19] MEDS ORDERED: ROCURONIUM 10MG/ML 10ML VIAL IV ONE ×2 (11:33→13:22)
[2023-04-19] MEDS ORDERED: MIDAZOLAM HCL 2MG/2ML 2ml VIAL (1mg/ml) ONE ×2 (11:33→13:35)
[2023-04-19] MEDS ORDERED: metroNIDAZOLE 500MG/100ML 100 ML IV ONE (11:34)
[2023-04-19] MEDS ORDERED: levoFLOXacin 500MG 100 ML IV ONE (11:34)
[2023-04-19] MEDS: PHENYLEPHRINE IV 250 ML IV SCH ×2 (12:15→20:35)
[2023-04-19] MEDS ORDERED: NOREPINEPHRINE 8 MG/250ML KIT 250 ML IV ONE (12:49)
[2023-04-19] MEDS: PROPOFOL 100 ML IV SCH (14:14)
[2023-04-19] MEDS: MIDAZOLAM DRIP 50 mg/50mL 50 ML IV SCH (14:15)
[2023-04-19] MEDS: fentaNYL Drip 2500mCg/250mlNS 250 ML IV SCH (14:16)
[2023-04-19] MEDS: SODIUM CHLOR 0.9% PF (SALINE LOCK) 10ML VIAL/SYR IV SCH ×2 (14:52→21:30)
[2023-04-19] MEDS: D5W/SOD CHLO 0.9% 1,000 ML IV SCH ×2 (15:00→21:29)
[2023-04-19 15:21] LABS: Base Excess -3.6 mmol/L (-2.0-2.0)
[2023-04-19] MEDS: metroNIDAZOLE 500MG/100ML 100 ML IV SCH ×2 (15:54→21:30)
[2023-04-19] MEDS: hydrALAZINE HCL 20 MG/ML VL IV PRN (17:59)
[2023-04-19] MEDS: ATORVASTATIN 20 MG TAB PO SCH (21:27)
[2023-04-19] MEDS: TPN PER PHARMACY IV NR ×6 (21:31)
[2023-04-20] VITALS (94 sets, daily range): BP systolic 99–161; BP diastolic 30–59; PULSE 16–141; RESP 11–27; TEMP 97.9–99.9; O2SAT 94–100
[2023-04-20] MEDS: ACCU-CHEK COMFORT CURVE STRIP VI SCH ×5 (00:16→23:31)
[2023-04-20] MEDS: InsuLIN REG 1unit/0.01ml Soln (100units/ml) SC SCH ×5 (00:18→23:32)
[2023-04-20 04:12] LABS: Basophils # (auto) 0 10 ^3/uL (0-0.2); Basophils % (auto) 0.2 % (0.0-2.0); Eosinophils # (auto) 0 10 ^3/uL (0-0.8); Eosinophils % (auto) 0.2 % (0.0-7.0); Hematocrit 23.6 % (36.0-46.0); Hemoglobin 7.3 g/dL (12.2-16.2); Lymphocytes # (auto) 0.6 10 ^3/uL (0.4-5.4); Lymphocytes % (auto) 7.7 % (10.0-50.0); Mean Corpuscular Hemoglobin 27.8 pg (28.0-32.0); Mean Corpuscular Hgb Conc. 31.1 g/dL (32.0-36.0); Mean Corpuscular Volume 89.4 fL (80.0-100.0); Monocytes # (auto) 0.5 10 ^3/uL (0-1.3); Neutrophils # (auto) 6.7 10 ^3/uL (1.6-8.6); Neutrophils % (auto) 85.9 % (37.0-80.0); Nucleated Red Blood Cells % 0.1 %; Red Blood Cells 2.63 10^6/uL (4.0-5.20); White Blood Cell 7.8 10^3/uL (4.4-10.8)
[2023-04-20 04:27] LABS: Urine Bacteria FEW /hpf (None Seen); Urine Blood Negative /uL (Negative); Urine Clarity Clear (Clear); Urine Color Yellow (Yellow); Urine Hyaline Cast FEW /lpf (0 - 2); Urine Mucus FEW (None Seen); Urine Protein, UAD TRACE (Negative); Urine Specific Gravity 1.017 (1.001-1.035); Urine Urobilinogen Normal (Negative); Urine WBC 9 /hpf (0 - 5); Urine WBC Clumps PRESENT /hpf (None Seen)
[2023-04-20 04:31] LABS: Alanine Aminotransferase 14 U/L (7-40); Albumin 2.7 g/dL (3.2-4.8); Alkaline Phosphatase 72 U/L (46-116); Anion Gap 6 (5-15); Aspartate Aminotransferase 12 U/L (13-40); BUN/Creatinine Ratio 9.6 (10.0-20.0); Blood Urea Nitrogen 13 mg/dL (9-23); Calcium 7.8 mg/dL (8.7-10.4); Carbon Dioxide 23 mmol/L (20-30); Chloride 111 mmol/L (98-107); Glucose 148 mg/dL (74-106); Magnesium 1.8 mg/dL (1.6-2.6); Potassium 3.7 mmol/L (3.5-5.1); Sodium 140 mmol/L (136-145)
[2023-04-20 04:32] LABS: Bilirubin, Total 0.4 mg/dL (0.2-1.0); Phosphorus 3.3 mg/dL (2.4-5.1); Total Protein 4.2 g/dL (5.7-8.2)
[2023-04-20] MEDS: SUCRALFATE 1 GM/10 ML ORAL SUSP PO SCH ×4 (04:37→20:59)
[2023-04-20] MEDS: PROPOFOL 100 ML IV SCH (04:37)
[2023-04-20] MEDS: PHENYLEPHRINE IV 250 ML IV SCH ×4 (04:37→23:37)
[2023-04-20] MEDS: D5W/SOD CHLO 0.9% 1,000 ML IV SCH ×3 (04:40→21:18)
[2023-04-20] MEDS: metroNIDAZOLE 500MG/100ML 100 ML IV SCH ×3 (05:39→21:00)
[2023-04-20] MEDS: GABAPENTIN 100 MG CAP PO SCH (05:41)
[2023-04-20 08:27] LABS: Base Excess -6.4 mmol/L (-2.0-2.0)
[2023-04-20] MEDS ORDERED: FUROSEMIDE 40 MG/4 ML VIAL IV ONE (09:30)
[2023-04-20] MEDS ORDERED: EPINEPHrine HCL 0.5 ML NEB NEB ONE (09:45)
[2023-04-20] MEDS: DexmedeTOMIDine 200 MCG in D5W 5% 48 ML IV SCH ×2 (09:45→22:38)
[2023-04-20] MEDS: levoFLOXacin 500MG 100 ML IV SCH (10:10)
[2023-04-20] MEDS: PANTOPRAZOLE 40 MG/10 ML VIAL INJ IV SCH ×2 (10:10→20:59)
[2023-04-20] MEDS: SODIUM CHLOR 0.9% PF (SALINE LOCK) 10ML VIAL/SYR IV SCH ×2 (10:12→21:00)
[2023-04-20 11:43] LABS: Base Excess -5.7 mmol/L (-2.0-2.0)
[2023-04-20] MEDS: fentaNYL Drip 2500mCg/250mlNS 250 ML IV SCH (12:15)
[2023-04-20] MEDS ORDERED: HYDROmorphone HCL 2 MG/ML VL/or syr IV PRN (13:15)
[2023-04-20] MEDS ORDERED: HYDROmorphone HCL 2 MG/ML VL/or syr ONE (13:49)
[2023-04-20] MEDS: HYDROmorphone HCL 2 MG/ML VL/or syr IV PRN (13:51)
[2023-04-20] MEDS: MIDAZOLAM DRIP 50 mg/50mL 50 ML IV SCH (14:15)
[2023-04-20] MEDS ORDERED: methylPREDNISolone SOD SUCC 125 MG/2 ML VL IV ONE (15:00)
[2023-04-20] MEDS: TPN PER PHARMACY IV NR ×15 (16:08→20:59)
[2023-04-20] MEDS: ATORVASTATIN 20 MG TAB PO SCH (21:00)
[2023-04-20] MEDS ORDERED: ALBUTEROL SULF 2.5 MG/0.5ML(0.5%) NEB SOLN ONE (22:17)
[2023-04-20] MEDS: ALBUTEROL SULF 2.5 MG/0.5ML(0.5%) NEB SOLN NEB PRN (22:22)
[2023-04-21] VITALS (40 sets, daily range): BP systolic 105–165; BP diastolic 39–76; PULSE 77–93; RESP 13–33; TEMP 97.3–98; O2SAT 10–99
[2023-04-21] MEDS: D5W/SOD CHLO 0.9% 1,000 ML IV SCH (04:15)
[2023-04-21] MEDS: SUCRALFATE 1 GM/10 ML ORAL SUSP PO SCH ×4 (05:18→22:00)
[2023-04-21] MEDS: hydrALAZINE HCL 20 MG/ML VL IV PRN ×2 (05:19→18:56)
[2023-04-21] MEDS: metroNIDAZOLE 500MG/100ML 100 ML IV SCH ×3 (05:19→22:41)
[2023-04-21] MEDS: ACCU-CHEK COMFORT CURVE STRIP VI SCH ×3 (05:32→16:01)
[2023-04-21] MEDS: InsuLIN REG 1unit/0.01ml Soln (100units/ml) SC SCH ×3 (05:32→17:26)
[2023-04-21 05:34] LABS: Basophils # (auto) 0 10 ^3/uL (0-0.2); Eosinophils # (auto) 0 10 ^3/uL (0-0.8); Hemoglobin 7.6 g/dL (12.2-16.2); Lymphocytes # (auto) 0.3 10 ^3/uL (0.4-5.4)
[2023-04-21 05:36] LABS: Hematocrit 24.5 % (36.0-46.0); Mean Corpuscular Hgb Conc. 31.1 g/dL (32.0-36.0); Monocytes # (auto) 0.5 10 ^3/uL (0-1.3); Monocytes % (auto) 4.5 % (0.0-12.0); Neutrophils # (auto) 10.7 10 ^3/uL (1.6-8.6); Neutrophils % (auto) 92.5 % (37.0-80.0); Red Blood Cells 2.72 10^6/uL (4.0-5.20); White Blood Cell 11.6 10^3/uL (4.4-10.8)
[2023-04-21 05:41] LABS: Alanine Aminotransferase 15 U/L (7-40); Albumin 3.1 g/dL (3.2-4.8); Alkaline Phosphatase 82 U/L (46-116); Anion Gap 7 (5-15); Aspartate Aminotransferase 20 U/L (13-40); Blood Urea Nitrogen 19 mg/dL (9-23); Calcium 8.4 mg/dL (8.7-10.4); Carbon Dioxide 21 mmol/L (20-30); Chloride 112 mmol/L (98-107); Glucose 229 mg/dL (74-106); Magnesium 1.7 mg/dL (1.6-2.6); Potassium 3.2 mmol/L (3.5-5.1); Sodium 140 mmol/L (136-145)
[2023-04-21 05:42] LABS: Bilirubin, Total 0.3 mg/dL (0.2-1.0); Total Protein 4.7 g/dL (5.7-8.2)
[2023-04-21] MEDS: PROPOFOL 100 ML IV SCH (07:25)
[2023-04-21] MEDS: fentaNYL Drip 2500mCg/250mlNS 250 ML IV SCH (07:25)
[2023-04-21] MEDS: DexmedeTOMIDine 200 MCG in D5W 5% 48 ML IV SCH (07:25)
[2023-04-21] MEDS: PHENYLEPHRINE IV 250 ML IV SCH (07:26)
[2023-04-21] MEDS: MIDAZOLAM DRIP 50 mg/50mL 50 ML IV SCH (07:26)
[2023-04-21] MEDS: SODIUM CHLOR 0.9% PF (SALINE LOCK) 10ML VIAL/SYR IV SCH ×2 (07:28→22:40)
[2023-04-21] MEDS: PANTOPRAZOLE 40 MG/10 ML VIAL INJ IV SCH ×2 (08:00→22:40)
[2023-04-21] MEDS: levoFLOXacin 500MG 100 ML IV SCH (08:00)
[2023-04-21] MEDS: HYDROmorphone HCL 2 MG/ML VL/or syr IV PRN ×3 (08:01→20:27)
[2023-04-21] MEDS ORDERED: POTASSIUM CHL 20MEQ/100ML 200 ML IV ONE (11:37)
[2023-04-21] MEDS ORDERED: FUROSEMIDE 40 MG/4 ML VIAL ONE (11:38)
[2023-04-21] MEDS ORDERED: MAGNESIUM SULFATE 1GM/100ML 200 ML IV ONE (11:38)
[2023-04-21] MEDS: FUROSEMIDE 40 MG/4 ML VIAL IV SCH (11:38)
[2023-04-21] MEDS: POTASSIUM CHL 20MEQ/100ML 100 ML IV SCH ×2 (11:39→13:12)
[2023-04-21] MEDS: MAGNESIUM SULFATE 1GM/100ML 100 ML IV SCH ×2 (11:42→12:44)
[2023-04-21] MEDS: SODIUM FERR GLUC 62.5MG/5ML 125 MG in SODIUM CHL 0.9% 100 ML IV SCH (12:44)
[2023-04-21] MEDS: ALBUTEROL SULF 2.5 MG/0.5ML(0.5%) NEB SOLN NEB PRN (14:29)
[2023-04-21] MEDS ORDERED: LORazepam 2MG/ML-1ML VIAL IV PRN (16:00)
[2023-04-21] MEDS ORDERED: LORazepam 2MG/ML-1ML VIAL ONE (16:11)
[2023-04-21] MEDS: ALBUTEROL SULF 2.5 MG/0.5ML(0.5%) NEB SOLN NEB SCH (18:43)
[2023-04-21] MEDS: ACETYLCYSTEINE 10 %(100MG/ML) SOL 4ML NEB SCH (18:43)
[2023-04-21] MEDS: TPN PER PHARMACY IV NR ×9 (20:00)
[2023-04-21] MEDS ORDERED: TPN PER PHARMACY IV NR ×10 (20:00)
[2023-04-21] MEDS: ATORVASTATIN 20 MG TAB PO SCH (22:00)
[2023-04-22] VITALS (45 sets, daily range): BP systolic 131–170; BP diastolic 40–57; PULSE 89–106; RESP 13–35; TEMP 97.8–98.5; O2SAT 90–100
[2023-04-22] MEDS: ACCU-CHEK COMFORT CURVE STRIP VI SCH ×5 (01:02→23:59)
[2023-04-22] MEDS: InsuLIN REG 1unit/0.01ml Soln (100units/ml) SC SCH ×5 (01:04→23:59)
[2023-04-22 05:52] LABS: Basophils # (auto) 0 10 ^3/uL (0-0.2); Eosinophils # (auto) 0 10 ^3/uL (0-0.8)
[2023-04-22 05:55] LABS: Basophils % (auto) 0.1 % (0.0-2.0); Hematocrit 24.4 % (36.0-46.0); Hemoglobin 7.6 g/dL (12.2-16.2); Lymphocytes # (auto) 0.7 10 ^3/uL (0.4-5.4); Lymphocytes % (auto) 3.9 % (10.0-50.0); Mean Corpuscular Hemoglobin 27.4 pg (28.0-32.0); Mean Corpuscular Hgb Conc. 31.2 g/dL (32.0-36.0); Mean Corpuscular Volume 88.1 fL (80.0-100.0); Monocytes # (auto) 1.5 10 ^3/uL (0-1.3); Monocytes % (auto) 8.7 % (0.0-12.0); Neutrophils # (auto) 15.2 10 ^3/uL (1.6-8.6); Neutrophils % (auto) 87.3 % (37.0-80.0); Red Blood Cells 2.77 10^6/uL (4.0-5.20); Red Cell Distribution Width 15.1 % (11.8-14.3); White Blood Cell 17.4 10^3/uL (4.4-10.8)
[2023-04-22] MEDS: metroNIDAZOLE 500MG/100ML 100 ML IV SCH ×3 (05:56→22:04)
[2023-04-22] MEDS: SUCRALFATE 1 GM/10 ML ORAL SUSP PO SCH ×4 (05:56→22:00)
[2023-04-22 06:11] LABS: Alanine Aminotransferase 18 U/L (7-40); Alkaline Phosphatase 81 U/L (46-116); Anion Gap 7 (5-15); BUN/Creatinine Ratio 15.1 (10.0-20.0); Blood Urea Nitrogen 28 mg/dL (9-23); Calcium 9.2 mg/dL (8.7-10.4); Carbon Dioxide 23 mmol/L (20-30); Chloride 110 mmol/L (98-107); Glucose 142 mg/dL (74-106); Magnesium 2.5 mg/dL (1.6-2.6); Sodium 140 mmol/L (136-145)
[2023-04-22 06:12] LABS: Albumin 3.2 g/dL (3.2-4.8); Aspartate Aminotransferase 20 U/L (13-40); Bilirubin, Total 0.3 mg/dL (0.2-1.0); Phosphorus 3.5 mg/dL (2.4-5.1)
[2023-04-22] MEDS: ALBUTEROL SULF 2.5 MG/0.5ML(0.5%) NEB SOLN NEB SCH ×2 (06:29→11:40)
[2023-04-22] MEDS: ACETYLCYSTEINE 10 %(100MG/ML) SOL 4ML NEB SCH ×2 (06:30→11:39)
[2023-04-22] MEDS ORDERED: FUROSEMIDE 40 MG/4 ML VIAL ONE (08:19)
[2023-04-22] MEDS: HYDROmorphone HCL 2 MG/ML VL/or syr IV PRN ×2 (08:21→17:29)
[2023-04-22] MEDS: FUROSEMIDE 40 MG/4 ML VIAL IV SCH (08:21)
[2023-04-22] MEDS: SODIUM CHLOR 0.9% PF (SALINE LOCK) 10ML VIAL/SYR IV SCH ×2 (08:22→22:04)
[2023-04-22] MEDS: levoFLOXacin 500MG 100 ML IV SCH (08:22)
[2023-04-22] MEDS: PANTOPRAZOLE 40 MG/10 ML VIAL INJ IV SCH ×2 (08:22→22:04)
[2023-04-22] MEDS ORDERED: ALBUTEROL SULF 2.5 MG/0.5ML(0.5%) NEB SOLN ONE (10:29)
[2023-04-22] MEDS ORDERED: LORazepam 2MG/ML-1ML VIAL IV PRN (11:00)
[2023-04-22] MEDS: SODIUM FERR GLUC 62.5MG/5ML 125 MG in SODIUM CHL 0.9% 100 ML IV SCH (12:00)
[2023-04-22] MEDS ORDERED: LORazepam 2MG/ML-1ML VIAL ONE (12:36)
[2023-04-22] MEDS: ALBUTEROL SULF 2.5 MG/0.5ML(0.5%) NEB SOLN NEB PRN (18:12)
[2023-04-22] MEDS ORDERED: TPN PER PHARMACY IV NR ×9 (20:00)
[2023-04-22] MEDS: ATORVASTATIN 20 MG TAB PO SCH (22:00)
[2023-04-23] VITALS (35 sets, daily range): BP systolic 110–177; BP diastolic 40–118; PULSE 88–119; RESP 12–26; TEMP 97.7–98.9; O2SAT 90–100
[2023-04-23] MEDS: hydrALAZINE HCL 20 MG/ML VL IV PRN ×2 (00:16→10:06)
[2023-04-23] MEDS: HYDROmorphone HCL 2 MG/ML VL/or syr IV PRN ×4 (01:06→23:21)
[2023-04-23 05:37] LABS: Alanine Aminotransferase 16 U/L (7-40); Albumin 3.2 g/dL (3.2-4.8); Alkaline Phosphatase 74 U/L (46-116); Anion Gap 6 (5-15); Aspartate Aminotransferase 19 U/L (13-40); BUN/Creatinine Ratio 19.1 (10.0-20.0); Blood Urea Nitrogen 36 mg/dL (9-23); Calcium 9.3 mg/dL (8.7-10.4); Carbon Dioxide 26 mmol/L (20-30); Chloride 109 mmol/L (98-107); Glucose 120 mg/dL (74-106); Magnesium 2.5 mg/dL (1.6-2.6); Phosphorus 2.5 mg/dL (2.4-5.1); Sodium 141 mmol/L (136-145)
[2023-04-23 05:38] LABS: Bilirubin, Total 0.3 mg/dL (0.2-1.0); Total Protein 4.9 g/dL (5.7-8.2)
[2023-04-23 05:49] LABS: Basophils # (auto) 0 10 ^3/uL (0-0.2); Basophils % (auto) 0.1 % (0.0-2.0); Eosinophils # (auto) 0 10 ^3/uL (0-0.8); Eosinophils % (auto) 0.3 % (0.0-7.0); Hemoglobin 7.3 g/dL (12.2-16.2); Mean Corpuscular Hgb Conc. 31.7 g/dL (32.0-36.0); White Blood Cell 11.5 10^3/uL (4.4-10.8)
[2023-04-23 05:53] LABS: Hematocrit 22.9 % (36.0-46.0); Mean Corpuscular Hemoglobin 27.6 pg (28.0-32.0); Mean Corpuscular Volume 87.2 fL (80.0-100.0); Monocytes % (auto) 8.5 % (0.0-12.0); Neutrophils # (auto) 9.4 10 ^3/uL (1.6-8.6); Neutrophils % (auto) 82.1 % (37.0-80.0); Red Blood Cells 2.63 10^6/uL (4.0-5.20); Red Cell Distribution Width 15.1 % (11.8-14.3)
[2023-04-23] MEDS: SUCRALFATE 1 GM/10 ML ORAL SUSP PO SCH ×4 (06:00→22:00)
[2023-04-23] MEDS: metroNIDAZOLE 500MG/100ML 100 ML IV SCH ×3 (06:05→23:00)
[2023-04-23] MEDS: ACCU-CHEK COMFORT CURVE STRIP VI SCH ×4 (06:05→23:23)
[2023-04-23] MEDS: InsuLIN REG 1unit/0.01ml Soln (100units/ml) SC SCH ×4 (06:30→23:24)
[2023-04-23] MEDS: SODIUM CHLOR 0.9% PF (SALINE LOCK) 10ML VIAL/SYR IV SCH ×2 (07:01→23:04)
[2023-04-23] MEDS: PANTOPRAZOLE 40 MG/10 ML VIAL INJ IV SCH ×2 (07:56→22:58)
[2023-04-23] MEDS: FUROSEMIDE 40 MG/4 ML VIAL IV SCH (07:56)
[2023-04-23] MEDS: levoFLOXacin 250MG 50 ML IV SCH (07:57)
[2023-04-23] MEDS: ALBUTEROL SULF 2.5 MG/0.5ML(0.5%) NEB SOLN NEB PRN (09:28)
[2023-04-23] MEDS: SODIUM FERR GLUC 62.5MG/5ML 125 MG in SODIUM CHL 0.9% 100 ML IV SCH (11:23)
[2023-04-23] MEDS ORDERED: METOPROLOL TARTRATE 1MG/1ML-5ML VIAL IV PRN (12:34)
[2023-04-23] MEDS ORDERED: TPN PER PHARMACY IV NR ×9 (20:00)
[2023-04-23] MEDS: ATORVASTATIN 20 MG TAB PO SCH (22:00)
[2023-04-24] VITALS (7 sets, daily range): BP systolic 136–143; BP diastolic 50–63; PULSE 83–89; RESP 18–24; TEMP 97.6–98.8; O2SAT 95–98
[2023-04-24] MEDS: HYDROmorphone HCL 2 MG/ML VL/or syr IV PRN ×4 (04:18→18:08)
[2023-04-24] MEDS: SUCRALFATE 1 GM/10 ML ORAL SUSP PO SCH ×4 (06:00→21:26)
[2023-04-24] MEDS: metroNIDAZOLE 500MG/100ML 100 ML IV SCH ×3 (06:04→21:52)
[2023-04-24] MEDS: ACCU-CHEK COMFORT CURVE STRIP VI SCH ×4 (06:04→23:50)
[2023-04-24] MEDS: InsuLIN REG 1unit/0.01ml Soln (100units/ml) SC SCH ×4 (06:12→23:50)
[2023-04-24 06:54] LABS: Alanine Aminotransferase 13 U/L (7-40); Alkaline Phosphatase 72 U/L (46-116); Anion Gap 4 (5-15); Aspartate Aminotransferase 14 U/L (13-40); BUN/Creatinine Ratio 24.6 (10.0-20.0); Blood Urea Nitrogen 43 mg/dL (9-23); Calcium 9.2 mg/dL (8.7-10.4); Carbon Dioxide 28 mmol/L (20-30); Chloride 110 mmol/L (98-107); Glucose 122 mg/dL (74-106); Magnesium 2.4 mg/dL (1.6-2.6); Phosphorus 2.4 mg/dL (2.4-5.1); Potassium 3.4 mmol/L (3.5-5.1); Sodium 142 mmol/L (136-145)
[2023-04-24 06:55] LABS: Bilirubin, Total 0.4 mg/dL (0.2-1.0); Total Protein 4.6 g/dL (5.7-8.2)
[2023-04-24 07:01] LABS: Basophils # (auto) 0 10 ^3/uL (0-0.2); Eosinophils # (auto) 0.1 10 ^3/uL (0-0.8); Hemoglobin 7.2 g/dL (12.2-16.2); Neutrophils # (auto) 6.1 10 ^3/uL (1.6-8.6); Neutrophils % (auto) 74.7 % (37.0-80.0); Red Cell Distribution Width 15.4 % (11.8-14.3); White Blood Cell 8.2 10^3/uL (4.4-10.8)
[2023-04-24 07:04] LABS: Basophils % (auto) 0.2 % (0.0-2.0); Eosinophils % (auto) 0.7 % (0.0-7.0); Hematocrit 22.4 % (36.0-46.0); Lymphocytes % (auto) 12.4 % (10.0-50.0); Mean Corpuscular Hemoglobin 27.5 pg (28.0-32.0); Mean Corpuscular Volume 85.9 fL (80.0-100.0); Nucleated Red Blood Cells % 0.1 %; Red Blood Cells 2.61 10^6/uL (4.0-5.20)
[2023-04-24] MEDS: SODIUM CHLOR 0.9% PF (SALINE LOCK) 10ML VIAL/SYR IV SCH ×2 (09:08→21:54)
[2023-04-24] MEDS: levoFLOXacin 250MG 50 ML IV SCH (09:08)
[2023-04-24] MEDS: FUROSEMIDE 40 MG/4 ML VIAL IV SCH (09:08)
[2023-04-24] MEDS: PANTOPRAZOLE 40 MG/10 ML VIAL INJ IV SCH ×2 (09:08→21:53)
[2023-04-24] MEDS: SODIUM FERR GLUC 62.5MG/5ML 125 MG in SODIUM CHL 0.9% 100 ML IV SCH (12:05)
[2023-04-24] MEDS ORDERED: TPN PER PHARMACY IV NR ×9 (20:00)
[2023-04-24] MEDS: ATORVASTATIN 20 MG TAB PO SCH (21:26)
[2023-04-24] MEDS: ENOXAPARIN SOD 80 MG/0.8ML SYRINGE SC SCH (21:53)
[2023-04-25] VITALS (8 sets, daily range): BP systolic 114–156; BP diastolic 54–67; PULSE 75–89; RESP 16–18; TEMP 97.3–98.7; O2SAT 94–100
[2023-04-25] MEDS: HYDROmorphone HCL 2 MG/ML VL/or syr IV PRN ×4 (01:06→18:56)
[2023-04-25] MEDS: SUCRALFATE 1 GM/10 ML ORAL SUSP PO SCH ×4 (05:06→21:49)
[2023-04-25] MEDS: ACCU-CHEK COMFORT CURVE STRIP VI SCH (05:20)
[2023-04-25] MEDS: InsuLIN REG 1unit/0.01ml Soln (100units/ml) SC SCH (05:20)
[2023-04-25] MEDS: metroNIDAZOLE 500MG/100ML 100 ML IV SCH ×3 (05:23→21:57)
[2023-04-25 06:56] LABS: White Blood Cell 7.6 10^3/uL (4.4-10.8)
[2023-04-25 07:00] LABS: Hematocrit 24.7 % (36.0-46.0); Mean Corpuscular Hemoglobin 27.7 pg (28.0-32.0); Mean Corpuscular Hgb Conc. 32.2 g/dL (32.0-36.0); Red Blood Cells 2.87 10^6/uL (4.0-5.20); Red Cell Distribution Width 15.3 % (11.8-14.3)
[2023-04-25 07:12] LABS: Alanine Aminotransferase 15 U/L (7-40); Albumin 3.2 g/dL (3.2-4.8); Alkaline Phosphatase 76 U/L (46-116); Anion Gap 7 (5-15); Aspartate Aminotransferase 18 U/L (13-40); BUN/Creatinine Ratio 25.3 (10.0-20.0); Blood Urea Nitrogen 42 mg/dL (9-23); Carbon Dioxide 29 mmol/L (20-30); Chloride 109 mmol/L (98-107); Glucose 94 mg/dL (74-106); Potassium 3.4 mmol/L (3.5-5.1); Sodium 145 mmol/L (136-145)
[2023-04-25 07:13] LABS: Bilirubin, Total 0.4 mg/dL (0.2-1.0)
[2023-04-25 07:18] LABS: Band Neutrophils % (manual) 0; Basophils % (manual) 0 (0.0-2.0); Blast Cells 0; Eosinophils % (manual) 0 (0-7); Myelocytes % 0; Promyelocytes % 0; Reactive Lymphocytes 0
[2023-04-25 09:48] LABS: Lymphocytes % (manual) 13 (10.0-50.0); Metamyelocytes % 2; Monocytes % (manual) 8 (0-12); Platelet Estimate Adequate
[2023-04-25] MEDS: SODIUM CHLOR 0.9% PF (SALINE LOCK) 10ML VIAL/SYR IV SCH ×2 (10:00→21:57)
[2023-04-25] MEDS: levoFLOXacin 250MG 50 ML IV SCH (10:00)
[2023-04-25] MEDS: PANTOPRAZOLE 40 MG/10 ML VIAL INJ IV SCH ×2 (10:00→21:57)
[2023-04-25] MEDS: SODIUM FERR GLUC 62.5MG/5ML 125 MG in SODIUM CHL 0.9% 100 ML IV SCH (11:26)
[2023-04-25] MEDS ORDERED: GASTROGRAFIN 120 ML SOL ONE (13:21)
[2023-04-25] MEDS ORDERED: PPN PER PHARMACY 0 ML IV SCH (14:15)
[2023-04-25 15:29] LABS: Phosphorus 3.4 mg/dL (2.4-5.1)
[2023-04-25 16:06] LABS: Magnesium 2.3 mg/dL (1.6-2.6)
[2023-04-25] MEDS ORDERED: AMINO ACID INFUSION IN D10W 1,000 ML IV NR (20:00)
[2023-04-25] MEDS: ATORVASTATIN 20 MG TAB PO SCH (21:48)
[2023-04-25] MEDS: ENOXAPARIN SOD 80 MG/0.8ML SYRINGE SC SCH (21:57)
[2023-04-26] VITALS (9 sets, daily range): BP systolic 141–163; BP diastolic 57–96; PULSE 68–109; RESP 16–22; TEMP 97.2–98.4; O2SAT 94–99
[2023-04-26] MEDS ORDERED: DEXTROSE (50%) 50ML SYRG IV SCH
[2023-04-26] MEDS: ACCU-CHEK COMFORT CURVE STRIP VI SCH ×5 (00:25→23:57)
[2023-04-26] MEDS: metroNIDAZOLE 500MG/100ML 100 ML IV SCH (05:21)
[2023-04-26] MEDS: SUCRALFATE 1 GM/10 ML ORAL SUSP PO SCH ×4 (05:21→21:48)
[2023-04-26] MEDS: InsuLIN REG 1unit/0.01ml Soln (100units/ml) SC SCH ×5 (05:37→23:57)
[2023-04-26 06:29] LABS: Alanine Aminotransferase 16 U/L (7-40); Albumin 3.1 g/dL (3.2-4.8); Alkaline Phosphatase 75 U/L (46-116); Anion Gap 9 (5-15); Aspartate Aminotransferase 24 U/L (13-40); BUN/Creatinine Ratio 19.5 (10.0-20.0); Calcium 9.6 mg/dL (8.5-10.1); Carbon Dioxide 27 mmol/L (20-30); Chloride 111 mmol/L (98-107); Glucose 108 mg/dL (74-106); Potassium 3.2 mmol/L (3.5-5.1); Sodium 147 mmol/L (136-145); Triglycerides 54 mg/dL (< 150)
[2023-04-26 06:31] LABS: Bilirubin, Total 0.3 mg/dL (0.2-1.0); Total Protein 4.8 g/dL (5.7-8.2)
[2023-04-26 07:00] LABS: Blood Urea Nitrogen 30 mg/dL (9-23)
[2023-04-26 07:10] LABS: Magnesium 2.4 mg/dL (1.6-2.6)
[2023-04-26] MEDS: SODIUM CHLOR 0.9% PF (SALINE LOCK) 10ML VIAL/SYR IV SCH ×2 (10:58→21:48)
[2023-04-26] MEDS: PANTOPRAZOLE 40 MG/10 ML VIAL INJ IV SCH ×2 (10:58→21:48)
[2023-04-26] MEDS: levoFLOXacin 250MG 50 ML IV SCH (10:58)
[2023-04-26] MEDS ORDERED: POTASSIUM PHOSPHATE 26.4 MEQ in SODIUM CHL 0.9% 100 ML IV ONE (12:30)
[2023-04-26] MEDS: SODIUM FERR GLUC 62.5MG/5ML 125 MG in SODIUM CHL 0.9% 100 ML IV SCH (13:40)
[2023-04-26] MEDS ORDERED: PPN PER PHARMACY IV NR ×9 (20:00)
[2023-04-26] MEDS: ENOXAPARIN SOD 80 MG/0.8ML SYRINGE SC SCH (21:48)
[2023-04-26] MEDS: HYDROmorphone HCL 2 MG/ML VL/or syr IV PRN (22:18)
[2023-04-27] VITALS (7 sets, daily range): BP systolic 130–150; BP diastolic 51–59; PULSE 75–81; RESP 12–18; TEMP 97.8–98.2; O2SAT 97–100
[2023-04-27] MEDS: SUCRALFATE 1 GM/10 ML ORAL SUSP PO SCH ×4 (05:14→22:05)
[2023-04-27] MEDS: InsuLIN REG 1unit/0.01ml Soln (100units/ml) SC SCH ×4 (05:18→23:03)
[2023-04-27] MEDS: ACCU-CHEK COMFORT CURVE STRIP VI SCH ×4 (05:18→23:02)
[2023-04-27 05:23] LABS: Hemoglobin 8.1 g/dL (12.2-16.2); Red Blood Cells 2.89 10^6/uL (4.0-5.20)
[2023-04-27 05:25] LABS: Mean Corpuscular Hgb Conc. 32.3 g/dL (32.0-36.0); Mean Corpuscular Volume 86.7 fL (80.0-100.0); Red Cell Distribution Width 15.6 % (11.8-14.3); White Blood Cell 8.3 10^3/uL (4.4-10.8)
[2023-04-27 05:30] LABS: Alkaline Phosphatase 71 U/L (46-116); Anion Gap 6 (5-15); Aspartate Aminotransferase 19 U/L (13-40); BUN/Creatinine Ratio 22.3 (10.0-20.0); Blood Urea Nitrogen 31 mg/dL (9-23); Calcium 8.9 mg/dL (8.7-10.4); Carbon Dioxide 27 mmol/L (20-30); Chloride 108 mmol/L (98-107); Glucose 89 mg/dL (74-106); Magnesium 2.2 mg/dL (1.6-2.6); Potassium 3.1 mmol/L (3.5-5.1); Sodium 141 mmol/L (136-145)
[2023-04-27 05:31] LABS: Bilirubin, Total 0.4 mg/dL (0.2-1.0); Phosphorus 3.2 mg/dL (2.4-5.1); Total Protein 4.7 g/dL (5.7-8.2)
[2023-04-27 05:35] LABS: Band Neutrophils % (manual) 0; Basophils % (manual) 0 (0.0-2.0); Blast Cells 0; Metamyelocytes % 0; Promyelocytes % 0; Reactive Lymphocytes 0
[2023-04-27 05:38] LABS: Alanine Aminotransferase 11 U/L (7-40)
[2023-04-27] MEDS: PANTOPRAZOLE 40 MG/10 ML VIAL INJ IV SCH ×2 (08:47→22:06)
[2023-04-27] MEDS: levoFLOXacin 250MG 50 ML IV SCH (08:48)
[2023-04-27] MEDS: HYDROmorphone HCL 2 MG/ML VL/or syr IV PRN ×2 (08:49→16:24)
[2023-04-27 09:00] LABS: Eosinophils % (manual) 2 (0-7); Lymphocytes % (manual) 19 (10.0-50.0); Monocytes % (manual) 5 (0-12); Myelocytes % 2; Platelet Estimate Adequate
[2023-04-27] MEDS: SODIUM CHLOR 0.9% PF (SALINE LOCK) 10ML VIAL/SYR IV SCH ×2 (09:05→22:06)
[2023-04-27] MEDS ORDERED: POTASSIUM EFFERVESENT TAB 25 MEQ PO ONE (11:45)
[2023-04-27] MEDS: ACETAMINOPHEN 325 MG TAB PO PRN (12:01)
[2023-04-27] MEDS ORDERED: SOD CHL 0.9%/ KCL 40MEQ 1,000 ML IV ONE (14:15)
[2023-04-27] MEDS: Ensure Enlive Strawberry 8oz Bottle PO SCH (17:48)
[2023-04-27] MEDS: ENOXAPARIN SOD 80 MG/0.8ML SYRINGE SC SCH (22:06)
[2023-04-28] VITALS (7 sets, daily range): BP systolic 128–146; BP diastolic 50–73; PULSE 72–85; RESP 16–21; TEMP 98–98.4; O2SAT 96–99
[2023-04-28] MEDS: InsuLIN REG 1unit/0.01ml Soln (100units/ml) SC SCH ×3 (05:14→18:00)
[2023-04-28] MEDS: ACCU-CHEK COMFORT CURVE STRIP VI SCH ×3 (05:15→18:01)
[2023-04-28] MEDS: SUCRALFATE 1 GM/10 ML ORAL SUSP PO SCH ×4 (05:16→22:56)
[2023-04-28 05:37] LABS: Chloride 110 mmol/L (98-107); Potassium 3.8 mmol/L (3.5-5.1); Sodium 140 mmol/L (136-145)
[2023-04-28 05:38] LABS: Anion Gap 6 (5-15); Calcium 8.6 mg/dL (8.7-10.4); Carbon Dioxide 24 mmol/L (20-30)
[2023-04-28 05:43] LABS: BUN/Creatinine Ratio 17.9 (10.0-20.0); Blood Urea Nitrogen 26 mg/dL (9-23); Glucose 88 mg/dL (74-106)
[2023-04-28] MEDS: Ensure Enlive Strawberry 8oz Bottle PO SCH ×3 (08:41→18:02)
[2023-04-28] MEDS: HYDROmorphone HCL 2 MG/ML VL/or syr IV PRN ×2 (08:42→17:35)
[2023-04-28] MEDS: SODIUM CHLOR 0.9% PF (SALINE LOCK) 10ML VIAL/SYR IV SCH ×2 (09:55→22:56)
[2023-04-28] MEDS: PANTOPRAZOLE 40 MG/10 ML VIAL INJ IV SCH ×2 (09:55→22:56)
[2023-04-28] MEDS: ENOXAPARIN SOD 60 MG/0.6 ML SYRINGE SC SCH (22:57)
[2023-04-29] VITALS (8 sets, daily range): BP systolic 140–166; BP diastolic 48–64; PULSE 74–88; RESP 17–20; TEMP 97.9–98.7; O2SAT 95–100
[2023-04-29] MEDS: HYDROmorphone HCL 2 MG/ML VL/or syr IV PRN ×2 (00:16→08:25)
[2023-04-29] MEDS: InsuLIN REG 1unit/0.01ml Soln (100units/ml) SC SCH ×5 (04:51→23:54)
[2023-04-29] MEDS: ACCU-CHEK COMFORT CURVE STRIP VI SCH ×5 (04:51→23:54)
[2023-04-29] MEDS: SUCRALFATE 1 GM/10 ML ORAL SUSP PO SCH ×4 (05:49→21:59)
[2023-04-29] MEDS: Ensure Enlive Strawberry 8oz Bottle PO SCH ×3 (08:05→17:49)
[2023-04-29] MEDS: hydrALAZINE HCL 20 MG/ML VL IV PRN ×2 (08:25→21:59)
[2023-04-29] MEDS: PANTOPRAZOLE 40 MG/10 ML VIAL INJ IV SCH ×3 (08:25→22:00)
[2023-04-29] MEDS: SODIUM CHLOR 0.9% PF (SALINE LOCK) 10ML VIAL/SYR IV SCH ×2 (08:35→22:00)
[2023-04-29] MEDS: ACETAMINOPHEN 325 MG TAB PO PRN ×2 (11:19→17:22)
[2023-04-29 16:24] LABS: Base Excess 0.8 mmol/L (-2.0-2.0)
[2023-04-29] MEDS: ENOXAPARIN SOD 60 MG/0.6 ML SYRINGE SC SCH (21:59)
[2023-04-30] MEDS: InsuLIN REG 1unit/0.01ml Soln (100units/ml) SC SCH (04:08)
[2023-04-30] MEDS: ACCU-CHEK COMFORT CURVE STRIP VI SCH (04:08)
[2023-04-30 05:00] VITALS: BP 165/57; PULSE 92; RESP 20; TEMP 97.6; O2SAT 95
[2023-04-30] MEDS: SUCRALFATE 1 GM/10 ML ORAL SUSP PO SCH (05:18)
[2023-04-30] MEDS ORDERED: METOPROLOL TARTRATE 25 MG TAB PO SCH (06:30)
[2023-04-30] MEDS: HYDROmorphone HCL 2 MG/ML VL/or syr IV PRN (06:59)
[2023-04-30 07:30] VITALS: O2SAT 97
[2023-04-30 07:34] VITALS: BP 145/69; PULSE 87; RESP 18; O2SAT 98
[2023-04-30 08:00] VITALS: BP_SYST 124; BP_SYST 144; BP_DIAS 63; BP_DIAS 65; PULSE 55; PULSE 72; RESP 20; TEMP 98.4; TEMP 98.7; O2SAT 94; O2SAT 96
[2023-04-30] MEDS: Ensure Enlive Strawberry 8oz Bottle PO SCH (08:00)
[2023-04-30] MEDS ORDERED: FERR-7 PO (08:53)
[2023-04-30] MEDS ORDERED: SUCR1TAB PO (08:53)
[2023-04-30] MEDS ORDERED: PANT40T PO (08:53)
[2023-04-30] MEDS ORDERED: HYDR2TAB58 PO (08:53)
[2023-04-30] MEDS ORDERED: LEXAPRO 10 MG PO SCH (10:00)
[2023-04-30 10:30] VITALS: O2SAT 95
[2023-04-30] MEDS: SODIUM CHLOR 0.9% PF (SALINE LOCK) 10ML VIAL/SYR IV SCH (10:34)
[2023-04-30] MEDS: PANTOPRAZOLE 40 MG/10 ML VIAL INJ IV SCH (10:35)
[2023-04-30] MEDS ORDERED: APIX5TAB PO (10:40)
[2023-04-30 11:00] VITALS: BP 145/69; PULSE 89; TEMP 37.1
== END 2023-04-30 14:00 | disposition home health service (06) | DRG 329 ==
LOC: ER 11:59 → OVERFLOW 18:35 → WEST WING 23:52 → ICU WEST 04-19 13:48 → DOU IN ICU 04-20 18:06 → TELE-EAST 04-23 20:16 → EAST 04-28 09:54
PROVIDERS: ADMIT Nurse Practitioner Acute Care; ATTEND Nurse Practitioner Acute Care
PROC: 30233N1 Transfusion of Nonautologous Red Blood Cells into Peripheral Vein, Percutaneous Approach (ICD-10-PCS; 2023-04-13)
PROC: 0DBL8ZX Excision of Transverse Colon, Via Natural or Artificial Opening Endoscopic, Diagnostic (ICD-10-PCS; 2023-04-17)
PROC: 0DBL8ZZ Excision of Transverse Colon, Via Natural or Artificial Opening Endoscopic (ICD-10-PCS; 2023-04-17)
PROC: 0BH17EZ Insertion of Endotracheal Airway into Trachea, Via Natural or Artificial Opening (ICD-10-PCS; 2023-04-19)
PROC: 0DTL0ZZ Resection of Transverse Colon, Open Approach (ICD-10-PCS; principal; 2023-04-19 11:44)
PROC: 5A1935Z Respiratory Ventilation, Less than 24 Consecutive Hours (ICD-10-PCS; 2023-04-19 11:44)
DX: C18.5 Malignant neoplasm of splenic flexure (principal); J96.01 Acute respiratory failure with hypoxia; K57.31 Diverticulosis of large intestine without perforation or abscess with bleeding; D62 Acute posthemorrhagic anemia; I13.0 Hypertensive heart and chronic kidney disease with heart failure and stage 1 through stage 4 chronic kidney disease, or unspecified chronic kidney disease; J44.1 Chronic obstructive pulmonary disease with (acute) exacerbation; J98.11 Atelectasis; D64.9 Anemia, unspecified; E78.5 Hyperlipidemia, unspecified; I48.91 Unspecified atrial fibrillation; K63.5 Polyp of colon; K80.20 Calculus of gallbladder without cholecystitis without obstruction; I48.0 Paroxysmal atrial fibrillation; K64.0 First degree hemorrhoids; I25.10 Atherosclerotic heart disease of native coronary artery without angina pectoris; I50.9 Heart failure, unspecified; Z96.652 Presence of left artificial knee joint; N18.9 Chronic kidney disease, unspecified; Z80.41 Family history of malignant neoplasm of ovary; Z90.5 Acquired absence of kidney; I25.2 Old myocardial infarction; Z82.49 Family history of ischemic heart disease and other diseases of the circulatory system; Z85.038 Personal history of other malignant neoplasm of large intestine; Z85.528 Personal history of other malignant neoplasm of kidney; Z86.718 Personal history of other venous thrombosis and embolism; Z88.0 Allergy status to penicillin; Z90.710 Acquired absence of both cervix and uterus; Z91.010 Allergy to peanuts; Z91.013 Allergy to seafood; Z98.1 Arthrodesis status; Z88.8 Allergy status to other drugs, medicaments and biological substances
CPT/HCPCS: 36415; 36569; 36600; 71045; 73030; 74018; 74176; 74250; 76775; 80048; 80053; 81001; 82270; 82378; 82607; 82746; 82805; 82962; 83540; 83550; 83735; 84100; 84478; 85007; 85014; 85018; 85025; 85027; 85610; 85730; 86850; 86900; 86901; 86920; 87070; 87081; 87205; 93005; 93971; 94002; 94003; 94640; 97110; 97116; 97163; 97530; C9113; G0378; J1815; J1956; J2250; J2704; J3480; J3490; J7042; J7060

== ENCOUNTER → 2023-09-20 | Outpatient (CLI) | payer MEDICARE, OTHER ==
[~2023-09-20] MED LIST changes: +AMIO200T33 PO; +APIX5TAB PO; +AZIT-185 PO; +DILT-26 PO; +FERR-7 PO; +HYDR2TAB58 PO; +SUCR1TAB PO; +TIOT1AER2 IN
[2023-09-20 13:22] LABS: Basophils # (auto) 0 10 ^3/uL (0-0.2); Basophils % (auto) 0.6 % (0.0-2.0); Eosinophils # (auto) 0.1 10 ^3/uL (0-0.8); Eosinophils % (auto) 2.6 % (0.0-7.0); Hemoglobin 10.5 g/dL (12.2-16.2); Lymphocytes # (auto) 1.9 10 ^3/uL (0.4-5.4); Lymphocytes % (auto) 33.6 % (10.0-50.0); Mean Corpuscular Hemoglobin 32.3 pg (28.0-32.0); Mean Corpuscular Volume 97.9 fL (80.0-100.0); Monocytes # (auto) 0.6 10 ^3/uL (0-1.3); Monocytes % (auto) 10.1 % (0.0-12.0); Neutrophils % (auto) 53.1 % (37.0-80.0); Nucleated Red Blood Cells % 0.1 %; Red Blood Cells 3.27 10^6/uL (4.0-5.20); Red Cell Distribution Width 26.7 % (11.8-14.3); White Blood Cell 5.7 10^3/uL (4.4-10.8)
[2023-09-20 13:26] LABS: Alanine Aminotransferase 34 U/L (7-40); Alkaline Phosphatase 108 U/L (46-116); Calcium 9.9 mg/dL (8.7-10.4)
[2023-09-20 13:27] LABS: Albumin 3.8 g/dL (3.2-4.8); Anion Gap 4 (5-15); Aspartate Aminotransferase 23 U/L (13-40); BUN/Creatinine Ratio 15.7 (10.0-20.0); Bilirubin, Total 1.3 mg/dL (0.2-1.0); Blood Urea Nitrogen 27 mg/dL (9-23); Carbon Dioxide 26 mmol/L (20-30); Chloride 103 mmol/L (98-107); Glucose 117 mg/dL (74-106); Phosphorus 2.4 mg/dL (2.4-5.1); Potassium 4.7 mmol/L (3.5-5.1); Sodium 133 mmol/L (136-145); Total Protein 5.9 g/dL (5.7-8.2); Uric Acid 5.4 mg/dL (3.1-7.8)
[2023-09-20 13:47] LABS: Protein, Urine 38.8 mg/dL (0.0-11.9)
[2023-09-20 13:50] LABS: Creatinine, Urine 78.48 mg/dL (30.0-125.0); Urine Protein/Creatinine Ratio 0.49
== END | disposition home or self-care (01) ==
LOC: LAB 12:42
PROVIDERS: ATTEND Student in an Organized Health Care Education/Training Program
DX: E11.22 Type 2 diabetes mellitus with diabetic chronic kidney disease (principal); N18.30 Chronic kidney disease, stage 3 unspecified; D63.1 Anemia in chronic kidney disease; N39.0 Urinary tract infection, site not specified; R80.9 Proteinuria, unspecified; E21.3 Hyperparathyroidism, unspecified; M10.9 Gout, unspecified; E55.9 Vitamin D deficiency, unspecified; E11.21 Type 2 diabetes mellitus with diabetic nephropathy
CPT/HCPCS: 36415; 80053; 82570; 83735; 84100; 84156; 84550; 85025

== ENCOUNTER → 2023-10-09 | Outpatient (CLI) | payer MEDICARE, OTHER ==
[2023-10-09 13:21] LABS: Basophils # (auto) 0 10 ^3/uL (0-0.2); Hematocrit 30.1 % (36.0-46.0)
[2023-10-09 13:27] LABS: Basophils % (auto) 0.2 % (0.0-2.0); Eosinophils # (auto) 0.1 10 ^3/uL (0-0.8); Eosinophils % (auto) 1.8 % (0.0-7.0); Lymphocytes # (auto) 1.5 10 ^3/uL (0.4-5.4); Lymphocytes % (auto) 24.4 % (10.0-50.0); Mean Corpuscular Hemoglobin 33.9 pg (28.0-32.0); Mean Corpuscular Hgb Conc. 33.4 g/dL (32.0-36.0); Mean Corpuscular Volume 101.7 fL (80.0-100.0); Monocytes # (auto) 0.8 10 ^3/uL (0-1.3); Monocytes % (auto) 12.1 % (0.0-12.0); Neutrophils # (auto) 3.9 10 ^3/uL (1.6-8.6); Neutrophils % (auto) 61.5 % (37.0-80.0); Red Blood Cells 2.96 10^6/uL (4.0-5.20); White Blood Cell 6.3 10^3/uL (4.4-10.8)
[2023-10-09 13:28] LABS: Red Cell Distribution Width 27.2 % (11.8-14.3)
[2023-10-09 13:40] LABS: Anisocytosis Moderate; Macrocytosis Slight; Platelet Estimate Adequate
[2023-10-09 14:00] LABS: Alanine Aminotransferase 44 U/L (7-40); Albumin 3.9 g/dL (3.2-4.8); Alkaline Phosphatase 124 U/L (46-116); Anion Gap 7 (5-15); Aspartate Aminotransferase 22 U/L (13-40); BUN/Creatinine Ratio 13.1 (10.0-20.0); Blood Urea Nitrogen 23 mg/dL (9-23); Calcium 10.3 mg/dL (8.7-10.4); Carbon Dioxide 25 mmol/L (20-30); Chloride 102 mmol/L (98-107); Glucose 121 mg/dL (74-106); Potassium 4.4 mmol/L (3.5-5.1); Sodium 134 mmol/L (136-145); Total Protein 5.8 g/dL (5.7-8.2)
== END | disposition home or self-care (01) ==
LOC: LAB 12:54
PROVIDERS: ATTEND Internal Medicine
DX: C18.9 Malignant neoplasm of colon, unspecified (principal)
CPT/HCPCS: 36415; 80053; 82378; 83615; 85025

== ENCOUNTER 2023-10-17 17:57 | Inpatient (IN) | payer MEDICARE, OTHER ==
[~2023-10-17] VITALS: Ht 167.6 cm; Wt 71.3 kg
[~2023-10-17 17:57] MED LIST changes: -AZIT-185 PO; -DILT-26 PO; -TIOT1AER2 IN
[2023-10-17] MEDS: IPRATROPIUM BROM 0.5 MG/2.5ML INH SOL HHN ONE (18:30)
[2023-10-17] MEDS: ALBUTEROL SULF 2.5 MG/0.5ML(0.5%) NEB SOLN HHN ONE (18:30)
[2023-10-17] MEDS ORDERED: VANCOMYCIN PER PHARMACY 0 MG IV SCH (18:45)
[2023-10-17 19:22] LABS: Basophils # (auto) 0 10 ^3/uL (0-0.2); Basophils % (auto) 0.2 % (0.0-2.0); Eosinophils # (auto) 0 10 ^3/uL (0-0.8); Eosinophils % (auto) 0.1 % (0.0-7.0); Hematocrit 31.4 % (36.0-46.0); Hemoglobin 10.7 g/dL (12.2-16.2); Lymphocytes # (auto) 0.8 10 ^3/uL (0.4-5.4); Lymphocytes % (auto) 12.6 % (10.0-50.0); Mean Corpuscular Hemoglobin 35.3 pg (28.0-32.0); Mean Corpuscular Hgb Conc. 34.2 g/dL (32.0-36.0); Mean Corpuscular Volume 103.4 fL (80.0-100.0); Monocytes # (auto) 0.6 10 ^3/uL (0-1.3); Monocytes % (auto) 9.3 % (0.0-12.0); Neutrophils # (auto) 4.8 10 ^3/uL (1.6-8.6); Neutrophils % (auto) 77.8 % (37.0-80.0); Nucleated Red Blood Cells % 0.1 %; Red Blood Cells 3.04 10^6/uL (4.0-5.20); White Blood Cell 6.2 10^3/uL (4.4-10.8)
[2023-10-17 19:23] LABS: Red Cell Distribution Width 26.4 % (11.8-14.3)
[2023-10-17 19:42] LABS: Alanine Aminotransferase 31 U/L (7-40); Albumin 3.8 g/dL (3.2-4.8); Alkaline Phosphatase 138 U/L (46-116); Anion Gap 3 (5-15); Aspartate Aminotransferase 28 U/L (13-40); Blood Urea Nitrogen 17 mg/dL (9-23); Calcium 9.8 mg/dL (8.5-10.1); Carbon Dioxide 27 mmol/L (20-30); Chloride 98 mmol/L (98-107); Glucose 119 mg/dL (74-106); Potassium 4.1 mmol/L (3.5-5.1); Sodium 128 mmol/L (136-145)
[2023-10-17 19:43] LABS: Total Protein 5.4 g/dL (5.7-8.2)
[2023-10-17] MEDS: levoFLOXacin 750MG 150 ML IV ONE (21:08)
[2023-10-17] MEDS: VANCOMYCIN 1GM/200ML 200 ML IV ONE (23:37)
[2023-10-17 23:47] VITALS: PULSE 72; RESP 17; O2SAT 97
[2023-10-17 23:47] LABS: Urine Bacteria None Seen /hpf (None Seen)
[2023-10-18 00:06] LABS: Urine Blood Negative /uL (Negative); Urine Clarity Clear (Clear); Urine Color Light-Yellow (Yellow); Urine Hyaline Cast FEW /lpf (0 - 2); Urine Protein, UAD 1+ (Negative); Urine Specific Gravity 1.013 (1.001-1.035); Urine Urobilinogen Normal (Negative); Urine WBC 1 /hpf (0 - 5); Urine pH 6.5 (5.0-9.0)
[2023-10-18] MEDS: methylPREDNISolone SOD SUCC 125 MG/2 ML VL IV ONE (00:16)
[2023-10-18] MEDS: FUROSEMIDE 40 MG/4 ML VIAL IV ONE (00:17)
[2023-10-18] MEDS ORDERED: ONDANSETRON HCL 4 MG/2 ML VIAL IV PRN (00:45)
[2023-10-18] MEDS ORDERED: MORPHINE SULFATE INJ 2 MG/ml SYRG IV PRN (00:45)
[2023-10-18] MEDS ORDERED: NITROGLYCERIN 0.4 MG SL TAB SL PRN (00:45)
[2023-10-18 00:55] VITALS: BP 148/59; PULSE 81; RESP 17; O2SAT 97
[2023-10-18 07:01] VITALS: O2SAT 95
[2023-10-18 07:20] VITALS: PULSE 75; RESP 18; O2SAT 99
[2023-10-18] MEDS ORDERED: AMIODARONE HCL 200 MG TAB PO SCH (10:00)
[2023-10-18] MEDS ORDERED: ASPirin 81 mg TAB PO SCH (10:00)
[2023-10-18] MEDS ORDERED: FUROSEMIDE 40 MG TAB PO SCH (10:00)
[2023-10-18] MEDS ORDERED: DILT-26 PO (11:34)
[2023-10-18] MEDS ORDERED: TIOT1AER2 IN (11:42)
[2023-10-18] MEDS ORDERED: PANT40T PO (11:42)
[2023-10-18 11:51] LABS: Basophils # (auto) 0 10 ^3/uL (0-0.2); Eosinophils # (auto) 0 10 ^3/uL (0-0.8); Hemoglobin 11.2 g/dL (12.2-16.2); Lymphocytes # (auto) 0.4 10 ^3/uL (0.4-5.4); Monocytes # (auto) 0.1 10 ^3/uL (0-1.3); Nucleated Red Blood Cells % 0.1 %
[2023-10-18] MEDS: APIXABAN 2.5 MG TAB PO SCH (11:51)
[2023-10-18] MEDS: AMIODARONE HCL 200 MG TAB PO SCH (11:51)
[2023-10-18] MEDS: AZITHROMYCIN 500MG/ 250ML 250 ML IV SCH (11:52)
[2023-10-18] MEDS: dilTIAZem HCL 180MG ER CAP PO SCH (11:52)
[2023-10-18 11:53] LABS: Basophils % (auto) 0.3 % (0.0-2.0); Hematocrit 33.4 % (36.0-46.0); Lymphocytes % (auto) 9.5 % (10.0-50.0); Mean Corpuscular Hgb Conc. 33.6 g/dL (32.0-36.0); Mean Corpuscular Volume 104.3 fL (80.0-100.0); Monocytes % (auto) 2.2 % (0.0-12.0); Neutrophils # (auto) 3.9 10 ^3/uL (1.6-8.6); White Blood Cell 4.4 10^3/uL (4.4-10.8)
[2023-10-18 11:54] LABS: Red Cell Distribution Width 26.3 % (11.8-14.3)
[2023-10-18 12:01] LABS: % Iron Saturation 10.5 % (15-50)
[2023-10-18 12:04] LABS: Alanine Aminotransferase 34 U/L (7-40); Albumin 3.9 g/dL (3.2-4.8); Alkaline Phosphatase 133 U/L (46-116); Anion Gap 5 (5-15); Aspartate Aminotransferase 32 U/L (13-40); BUN/Creatinine Ratio 11.1 (10.0-20.0); Bilirubin, Total 0.8 mg/dL (0.2-1.0); Blood Urea Nitrogen 18 mg/dL (9-23); Calcium 9.9 mg/dL (8.5-10.1); Carbon Dioxide 30 mmol/L (20-30); Chloride 92 mmol/L (98-107); Cholesterol 118 mg/dL (< 200); Glucose 227 mg/dL (74-106); HDL Cholesterol 68 mg/dL (40-59); LDL Cholesterol 35 mg/dL (< 100); Potassium 3.7 mmol/L (3.5-5.1); Sodium 127 mmol/L (136-145); Total Protein 5.8 g/dL (5.7-8.2); Triglycerides 32 mg/dL (< 150)
[2023-10-18 12:13] LABS: CRP High Sensitivity 3.38 mg/dL (<1.0)
[2023-10-18 12:19] LABS: Folate (Folic Acid) 23.09 ng/mL (>5.38)
[2023-10-18 12:25] LABS: Anisocytosis Slight; Platelet Estimate Adequate
[2023-10-18 13:40] LABS: COVID19 ANTIGEN SOFIA FIA NEGATIVE (NEGATIVE)
[2023-10-18 14:26] LABS: Free T3 1.76 pg/mL (2.3-4.2); Free T4 (Free Thyroxine) 0.72 ng/dL (0.89-1.76)
[2023-10-18 20:00] VITALS: PULSE 73
[2023-10-18 21:00] VITALS: BP 129/68; PULSE 70; RESP 17; TEMP 99.1; O2SAT 93
[2023-10-18] MEDS: ATORVASTATIN 20 MG TAB PO SCH (21:44)
[2023-10-18] MEDS: ACETAMINOPHEN 325 MG TAB PO PRN (21:44)
[2023-10-19] VITALS (10 sets, daily range): BP systolic 134–165; BP diastolic 56–70; PULSE 61–74; RESP 16–20; TEMP 36.6; O2SAT 93–97
[2023-10-19] MEDS: LEVOTHYROXINE SODIUM 112 MCG TAB PO SCH (05:26)
[2023-10-19] MEDS: IPRATROPIUM BROM 0.5 MG/2.5ML INH SOL NEB PRN (09:01)
[2023-10-19] MEDS: ALBUTEROL SULF 2.5 MG/0.5ML(0.5%) NEB SOLN NEB PRN (09:03)
[2023-10-19] MEDS: FUROSEMIDE 20 MG/2 ML VIAL IV SCH (09:43)
[2023-10-19 12:25] LABS: Rapid Influenza A Negative (Negative); Rapid Influenza B Negative (Negative)
[2023-10-19] MEDS ORDERED: AZIT-185 PO (13:04)
== END 2023-10-19 17:47 | disposition home or self-care (01) | DRG 291 ==
LOC: EDUNIT# 17:57 → EDBD 17:57 → ER 17:57 → TELE 10-18 00:42 → TELE-EAST 10-18 09:20
PROVIDERS: ADMIT Internal Medicine Pulmonary Disease; ATTEND Internal Medicine Pulmonary Disease
DX: I13.0 Hypertensive heart and chronic kidney disease with heart failure and stage 1 through stage 4 chronic kidney disease, or unspecified chronic kidney disease (principal); I50.33 Acute on chronic diastolic (congestive) heart failure; J96.20 Acute and chronic respiratory failure, unspecified whether with hypoxia or hypercapnia; N18.9 Chronic kidney disease, unspecified; Z20.822 Contact with and (suspected) exposure to COVID-19; D53.9 Nutritional anemia, unspecified; D63.8 Anemia in other chronic diseases classified elsewhere; J44.9 Chronic obstructive pulmonary disease, unspecified; E03.9 Hypothyroidism, unspecified; I48.91 Unspecified atrial fibrillation; E78.5 Hyperlipidemia, unspecified; I25.10 Atherosclerotic heart disease of native coronary artery without angina pectoris; Z88.0 Allergy status to penicillin; Z90.710 Acquired absence of both cervix and uterus; Z91.010 Allergy to peanuts; Z91.013 Allergy to seafood; Z74.01 Bed confinement status; Z85.038 Personal history of other malignant neoplasm of large intestine; Z92.21 Personal history of antineoplastic chemotherapy
CPT/HCPCS: 36415; 71045; 71250; 80053; 80061; 81001; 82607; 82728; 82746; 83036; 83540; 83550; 83605; 83735; 83880; 84439; 84443; 84481; 84484; 85025; 85379; 86141; 87040; 87070; 87081; 87205; 87426; 87804; 93005; 93306; 94640; 96365; 96367; 96375; 97162; G0378; J1956

== ENCOUNTER → 2023-10-25 | Outpatient (CLI) | payer MEDICARE ==
[~2023-10-25] MED LIST changes: -ALPR0.5T7 PO; -AMIO100T3 OR; +AZIT-185 PO; +DILT-26 PO; -DILT60TA PO; -HYDR2TAB58 PO; -PANT40TA2 PO; -SUCR1SUS26 PO; +TIOT1AER2 IN
[2023-10-25 13:24] LABS: Alanine Aminotransferase 29 U/L (7-40); Albumin 4.1 g/dL (3.2-4.8); Alkaline Phosphatase 133 U/L (46-116); Anion Gap 4 (5-15); Aspartate Aminotransferase 24 U/L (13-40); Bilirubin, Total 1.1 mg/dL (0.2-1.0); Blood Urea Nitrogen 20 mg/dL (9-23); Calcium 10.1 mg/dL (8.5-10.1); Carbon Dioxide 31 mmol/L (20-30); Chloride 96 mmol/L (98-107); Glucose 108 mg/dL (74-106); Potassium 3.9 mmol/L (3.5-5.1); Sodium 131 mmol/L (136-145); Total Protein 6.1 g/dL (5.7-8.2)
[2023-10-27 21:06] LABS: QuantiFERON-TB Gold Plus Negative (Negative)
== END | disposition home or self-care (01) ==
LOC: LAB 12:36
PROVIDERS: ATTEND Internal Medicine
DX: E03.9 Hypothyroidism, unspecified (principal); I50.9 Heart failure, unspecified
CPT/HCPCS: 36415; 80053; 83880; 84439; 84443